=== PATIENT | female | born 1940 | race Caucasian/White ===

== ENCOUNTER 2016-05-04 10:42 | Emergency (ER) | payer OTHER ==
[2016-05-04 10:47] VITALS: BP 150/84; PULSE 100; TEMP 99.1; BMI 26.0
[2016-05-04] MEDS ORDERED: ACETAMINOPHEN 500 MG TABLET (FP) PO ONE (12:17)
--- NOTE | 2016-05-04 12:21 | PDOC ---
History of Present Illness - General Chief Complaint: Back Pain Stated Complaint: back pain Time Seen by Provider: 05/04/16 11:18 History Source: Patient, Parent(s) Exam Limitations: No Limitations Past History - Past Medical History Allergies/Adverse Reactions: Allergies Allergy/AdvReac Type Severity Reaction Status Date / Time No Known Drug Allergies Allergy Verified 05/04/16 10:46 Home Medications: Ambulatory Orders Lubiprostone [Amitiza] 8 mcg PO DAILY 05/09/12 Linagliptin/Metformin HCl [Jentadueto 2.5 mg-1000 mg Tab] 1 each PO DAILY Aspirin Coated [Ecotrin -] 81 mg PO DAILY #30 tablet.ec 01/28/14 Tamoxifen Citrate 20 mg PO DAILY #30 tablet 01/28/14 Atorvastatin Ca [Lipitor] 40 mg PO HS 12/17/14 Hydrochlorothiazide [Hctz -] 25 mg PO BID 12/17/14 Losartan/Hydrochlorothiazide [Losartan-Hctz 50-12.5 mg Tab] 1 each PO DAILY Metoprolol Succinate [Toprol XL -] 25 mg PO DAILY 12/17/14 Alprazolam [Xanax] 0.25 mg PO Q8H PRN #0 tablet 12/21/14 Cefuroxime Axetil [Ceftin -] 500 mg PO BID 5 Days 12/21/14 Tamoxifen Citrate 20 mg PO DAILY tablet 12/21/14 Levofloxacin [Levaquin -] 500 mg PO DAILY #10 tablet 05/04/16 Anemia: No Asthma: No Cancer: Yes (RIGHT BREAST 02/08) Cardiac Disorders: No CVA: No COPD: No CHF: No Dementia: No Diabetes: Yes (2000) GI Disorders: No (CONSTIPATION) Disorders: No HTN: Yes Hypercholesterolemia: Yes Liver Disease: No Suicide Attempt (Hx): No Seizures: No Thyroid Disease: No - Surgical History Abdominal Surgery: No Appendectomy: No Cardiac Surgery: No Cholecystectomy: No Lung Surgery: No Neurologic Surgery: No Orthopedic Surgery: No - Immunization History Immunization Up to Date: No - Psycho/Social/Smoking Cessation Hx Anxiety: No Suicidal Ideation: No Smoking Status: No Smoking History: Never smoked Have you smoked in the past 12 months: No Number of Cigarettes Smoked Daily: 0 Information on smoking cessation initiated: No Hx Alcohol Use: No Drug/Substance Use Hx: No Substance Use Type: None Hx Substance Use Treatment: No *Physical Exam - Vital Signs Last Vital Signs Temp Pulse Resp BP Pulse Ox 99.1 F 100 H 18 150/84 99 05/04/16 10:44 05/04/16 10:44 05/04/16 10:44 05/04/16 10:44 05/04/16 10:44 - Physical Exam General Appearance: Yes: Nourished, Appropriately Dressed, Apparent Distress, Mild Distress HEENT: positive: [place], Normal ENT Inspection, TMs Normal, Pharynx Normal Neck: positive: Tender, Supple. negative: Lymphadenopathy (R), Lymphadenopathy (L) Respiratory/Chest: positive: Lungs Clear, Normal Breath Sounds Cardiovascular: positive: Regular Rate Gastrointestinal/Abdominal: positive: Normal Bowel Sounds, Soft. negative: Tender Musculoskeletal: positive: Normal Inspection, Muscle Spasm (tight tense musculature primarily to the left paravertebral spinous muscles at lumbar spine) . 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, Fully Oriented, Alert, Normal Mood/ Affect, Normal Response, Motor Strength 5/5 *DC/Admit/Observation/Transfer Diagnosis at time of Disposition: Urinary tract infection Qualifiers: Urinary tract infection type: acute cystitis Hematuria presence: with hematuria Qualified Code(s): N30.01 - Acute cystitis with hematuria - Discharge Dispostion Disposition: HOME Condition at time of disposition: Stable Admit: No - Referrals Referrals: José Denis MD [Primary Care Provider] - - Patient Instructions Printed Discharge Instructions: Urinary Tract Infection Additional Instructions: Rest, drink lots of fluids: Teas, water, soups Avoid contact with others until fevers and symptoms resolved Lots of handwashing and good hygiene Continue [id number] medications for symptomatic relief Tylenol or Motrin for fever and pain Continue all of antibiotics until completed Followup with private physician in one week for repeat urinalysis/reevaluation Return to emergency department for worsened symptoms, fevers, dehydration
[2016-05-04] MEDS ORDERED: ACETAMINOPHEN 500 MG TABLET (FP) ONE (12:22)
[2016-05-04 12:33] LABS: URINE APPEARANCE CLOUDY; URINE BILIRUBIN NEGATIVE (NEGATIVE); URINE BLOOD NEGATIVE (NEGATIVE); URINE COLOR YELLOW; URINE GLUCOSE (UA) 3+ (NEGATIVE); URINE KETONE TRACE (NEGATIVE); URINE NITRITE NEGATIVE (NEGATIVE); URINE PROTEIN 1+ (NEGATIVE); URINE UROBILINOGEN NEGATIVE E.U./dl (0.2-1.0)
[2016-05-04 12:34] LABS: URINE LEUK ESTERASE 2+ (NEGATIVE)
[2016-05-04 12:38] LABS: GRANULAR CASTS 1 /lpf; URINE HYALINE CAST 3 /lpf; URINE MUCUS RARE; URINE RBC 8 /hpf (0-3); URINE WBC 77 /hpf (3-5)
[2016-05-04] MEDS ORDERED: LEVOFLOXACIN 500 MG TABLET (FP) PO ONE (12:44)
[2016-05-04] MEDS ORDERED: LEVOFLOXACIN 500 MG TABLET (FP) ONE (12:53)
== END 2016-05-04 13:16 | disposition home or self-care (01) ==
LOC: JERFT 10:42
DX: N30.01 Acute cystitis with hematuria (principal); E11.9 Type 2 diabetes mellitus without complications; Z79.84 Long term (current) use of oral hypoglycemic drugs; I10 Essential (primary) hypertension; E78.00 Pure hypercholesterolemia, unspecified; Z85.3 Personal history of malignant neoplasm of breast
CPT/HCPCS: 81003; 81015; 87086; 99281-25

== ENCOUNTER 2016-05-09 12:22 | Emergency (ER) | payer OTHER ==
[2016-05-09 12:36] VITALS: PULSE 95; BMI 25.7
[2016-05-09] MEDS ORDERED: SODIUM CHLORIDE 1,000 ML IV STA (13:39)
[2016-05-09] MEDS ORDERED: OXYCODONE/APAP 5/325MG COMBO TABLET PO ONE (13:40)
[2016-05-09] MEDS ORDERED: OXYCODONE/APAP 5/325MG COMBO TABLET ONE (13:53)
[2016-05-09 14:14] LABS: BASOPHIL 0.6 % (0-2.0); EOSINOPHIL 1.5 % (0-4.5); MEAN CELL VOLUME 91.1 fl (80-96); MEAN PLT VOLUME 9.4 fl (7.5-11.1); NEUTROPHILS 69.1 % (42.8-82.8); PLATELET COUNT 336 K/MM3 (134-434); RDW 12.6 % (11.6-15.6); WHITE BLOOD COUNT 10.9 K/mm3 (4.0-10.0)
[2016-05-09 14:31] LABS: URINE APPEARANCE CLEAR; URINE BILIRUBIN NEGATIVE (NEGATIVE); URINE BLOOD NEGATIVE (NEGATIVE); URINE COLOR LT. YELLOW; URINE GLUCOSE (UA) TRACE (NEGATIVE); URINE KETONE NEGATIVE (NEGATIVE); URINE NITRITE NEGATIVE (NEGATIVE); URINE PROTEIN NEGATIVE (NEGATIVE); URINE UROBILINOGEN 0.2 E.U/dl E.U./dl (0.2-1.0)
[2016-05-09 14:35] LABS: URINE LEUK ESTERASE TRACE (NEGATIVE)
[2016-05-09 14:44] LABS: ALBUMIN 3.9 g/dl (3.4-5.0); BILIRUBIN,TOTAL 0.5 mg/dL (0.2-1.0); CALCIUM 9.2 mg/dL (8.5-10.1); CREATININE 1.4 mg/dL (0.55-1.02); TOT PROT 7.7 g/dl (6.4-8.2)
[2016-05-09 15:01] LABS: URINE HYALINE CAST 9 /lpf; URINE MUCUS RARE; URINE RBC 2 /hpf (0-3); URINE WBC 21 /hpf (3-5)
--- NOTE | 2016-05-09 15:20 | PDOC ---
History of Present Illness - General Chief Complaint: Pain, Acute Stated Complaint: LT SIDE/BACK PAIN Time Seen by Provider: 05/09/16 12:56 History Source: Patient Exam Limitations: No Limitations - History of Present Illness Travel History: No Initial Comments: 05/09/16 15:08 75 y/o female presents to the ED with complaints of left hip pain rating down her left leg for the past week and half intermittently worsened with movement and ambulation. Patient states was seen here approximately 6 days ago was diagnosed with a urinary tract infection has been taking the antibiotics since but states the pain continues. Patient states has no urinary complaints no dysuria fever, diarrhea, abdominal pain, or nausea. Patient denies history of low back pain, arthritis, recent fall, or recent illness. Timing/Duration: reports: constant Quality: reports: moderate, aching Abdominal Pain Onset Location: reports: other Pain Radiation: reports: other (Leg) Activities at Onset: reports: none Aggravating Factors: improves with: Movement Alleviating Factors: improves with: Rest Past History - Past Medical History Allergies/Adverse Reactions: Allergies Allergy/AdvReac Type Severity Reaction Status Date / Time No Known Drug Allergies Allergy Verified 05/09/16 12:26 Home Medications: Ambulatory Orders Lubiprostone [Amitiza] 8 mcg PO DAILY 05/09/12 Linagliptin/Metformin HCl [Jentadueto 2.5 mg-1000 mg Tab] 1 each PO DAILY Aspirin Coated [Ecotrin -] 81 mg PO DAILY #30 tablet.ec 01/28/14 Tamoxifen Citrate 20 mg PO DAILY #30 tablet 01/28/14 Atorvastatin Ca [Lipitor] 40 mg PO HS 12/17/14 Hydrochlorothiazide [Hctz -] 25 mg PO BID 12/17/14 Losartan/Hydrochlorothiazide [Losartan-Hctz 50-12.5 mg Tab] 1 each PO DAILY Metoprolol Succinate [Toprol XL -] 25 mg PO DAILY 12/17/14 Alprazolam [Xanax] 0.25 mg PO Q8H PRN #0 tablet 12/21/14 Cefuroxime Axetil [Ceftin -] 500 mg PO BID 5 Days 12/21/14 Tamoxifen Citrate 20 mg PO DAILY tablet 12/21/14 Levofloxacin [Levaquin -] 500 mg PO DAILY #10 tablet 05/04/16 Anemia: No Asthma: No Cancer: Yes (RIGHT BREAST 02/08) Cardiac Disorders: No CVA: No COPD: No CHF: No Dementia: No Diabetes: Yes (1999) GI Disorders: No (CONSTIPATION) Disorders: No HTN: Yes Hypercholesterolemia: Yes Liver Disease: No Suicide Attempt (Hx): No Seizures: No Thyroid Disease: No - Surgical History Abdominal Surgery: No Appendectomy: No Cardiac Surgery: No Cholecystectomy: No Lung Surgery: No Neurologic Surgery: No Orthopedic Surgery: No - Immunization History Immunization Up to Date: No - Psycho/Social/Smoking Cessation Hx Anxiety: No Suicidal Ideation: No Smoking Status: No Smoking History: Never smoked Have you smoked in the past 12 months: No Number of Cigarettes Smoked Daily: 0 Information on smoking cessation initiated: No Hx Alcohol Use: No Drug/Substance Use Hx: No Substance Use Type: None Hx Substance Use Treatment: No Patient Lives Alone: No Review of Systems - Review of Systems Able to Perform ROS?: Yes Constitutional: No: Symptoms Reported HEENTM: No: Symptoms Reported Respiratory: No: Symptoms reported Cardiac (ROS): No: Symptoms Reported : No: Symptoms Reported Musculoskeletal: Yes: Back Pain, Joint Pain (left pelvis ), Muscle Pain (left buttock and left groin) Integumentary: No: Symptoms Reported Neurological: No: Symptoms reported Hematologic/Lymphatic: No: Symptoms Reported *Physical Exam - Vital Signs Last Vital Signs Temp Pulse Resp BP Pulse Ox 99.1 F 95 H 18 154/77 100 05/09/16 12:29 05/09/16 12:29 05/09/16 12:29 05/09/16 12:29 05/09/16 12:29 - Physical Exam General Appearance: Yes: Nourished, Appropriately Dressed. No: Apparent Distress Respiratory/Chest: positive: Lungs Clear, Normal Breath Sounds. negative: Respiratory Distress, Accessory Muscle Use Cardiovascular: positive: Regular Rhythm, Regular Rate. negative: Murmur Vascular Pulses: Dorsalis-Pedis (R): 2+, Doralis-Pedis (L): 2+ Gastrointestinal/Abdominal: positive: Normal Bowel Sounds, Soft. negative: Tenderness Musculoskeletal: negative: CVA Tenderness, Vertebral Tenderness Extremity: positive: Normal Capillary Refill, Normal Inspection, Normal Range of Motion, Tender (left inguinal fold. Left iliac crest). negative: Pedal Edema Integumentary: positive: Normal Color, Warm, Moist Neurologic: positive: Motor Strength 5/5 (ambulatory) ED Treatment Course - LABORATORY CBC & Chemistry Diagram: 05/09/16 13:50 05/09/16 13:50 - ADDITIONAL ORDERS Additional order review: Laboratory Results 05/09/16 05/09/16 13:50 13:17 Sodium 138 Potassium 4.8 Chloride 101 Carbon Dioxide 25 Anion Gap 12 BUN 18 D Creatinine 1.4 H D Creat Clearance w eGFR 36.56 Random Glucose 203 H D Calcium 9.2 Total Bilirubin 0.5 D AST 42 H D ALT 20 Alkaline Phosphatase 50 Total Protein 7.7 Albumin 3.9 Urine Color Lt. yellow Urine Appearance Clear Urine pH 6.0 Ur Specific [place] 1.020 Urine Protein Negative Urine Glucose (UA) Trace H D Urine Ketones Negative Urine Blood Negative Urine Nitrite Negative Urine Bilirubin Negative Urine Urobilinogen 0.2 e.u/dl Ur Leukocyte Esterase Trace H D Urine RBC 2 Urine WBC 21 Ur Epithelial Cells Moderate Hyaline Casts 9 Urine Mucus Rare 05/09/16 13:50 RBC 4.45 MCV 91.1 MCHC 34.0 RDW 12.6 MPV 9.4 Neutrophils % 69.1 Lymphocytes % 21.7 Monocytes % 7.1 Eosinophils % 1.5 Basophils % 0.6 - RADIOLOGY Radiology Studies Ordered: Category Date Time Status HIP & PELVIS-LEFT [RAD] Stat Radiology 05/09/16 13:39 Ordered - Medications Given in the ED: ED Medications Discontinued Medications Generic Name Dose Route Start Last Admin Trade Name Freq PRN Reason Stop Dose Admin Sodium Chloride 1,000 mls @ 1,000 mls/hr 05/09/16 13:39 05/09/16 14:08 Normal Saline - IV 05/09/16 14:38 1,000 mls/hr ASDIR STA Administration Oxycodone/Acetaminophen 1 combo 05/09/16 13:40 05/09/16 14:08 Percocet 5/325 - PO 05/09/16 13:41 1 combo ONCE ONE Administration Medical Decision Making - Medical Decision Making 05/09/16 15:03 Patient here with complaints of left hip left suprapubic left inguinal pain intermittently for the past week and a half. Patient currently on antibiotics for UTI. Patient states no previous injury to the affected area and denies arthritis . Patient with tenderness to the left inguinal fold left iliac crest, and left upper buttock. No deformity palpated with movement. Patient ordered for labs including urinalysis urine culture and hip pelvis x-ray previous urine culture contaminated. 05/09/16 15:25 Laboratory Tests 05/09/16 05/09/16 05/09/16 13:17 13:50 13:50 WBC 10.9 H Hgb 13.8 D Hct 40.5 Neutrophils % 69.1 Sodium 138 Potassium 4.8 Chloride 101 Carbon Dioxide 25 Anion Gap 12 BUN 18 D Creatinine 1.4 H D Creat Clearance w eGFR 36.56 Random Glucose 203 H D Calcium 9.2 AST 42 H D ALT 20 Urine Glucose (UA) Trace H D Ur Leukocyte Esterase Trace H D Urine WBC 21 05/09/16 16:38 Pelvis and hip x-ray shows no gross fracture dislocation bone destruction or periosteal elevation since previous x-ray seen in 2006. Soft tissues appear unremarkable. Patient states feeling better after receiving Percocet. Patient continues to have bacteria in her urine but has Levaquin which she did not complete as of yet since she started on the sixth. Patient will be discharged home with Percocet and told to follow up with her PCP this week. *DC/Admit/Observation/Transfer Diagnosis at time of Disposition: Pain in pelvis Urinary tract infection Qualifiers: Urinary tract infection type: acute cystitis Hematuria presence: without hematuria Qualified Code(s): N30.00 - Acute cystitis without hematuria - Discharge Dispostion Disposition: HOME Condition at time of disposition: Improved - Referrals Referrals: José Denis MD [Primary Care Provider] - - Patient Instructions Printed Discharge Instructions: DI for Urinary Tract Infection (UTI) Additional Instructions: Please take Percocet as needed for discomfort and follow-up with her PCP discuss today's visit. Continue antibiotics until completed. Return to ED if symptoms return or worsen
[2016-05-09 17:24] VITALS: BP 145/75; TEMP 98.9
== END 2016-05-09 16:50 | disposition home or self-care (01) ==
LOC: JER 12:22
PROC: 3E0337Z Introduction of Electrolytic and Water Balance Substance into Peripheral Vein, Percutaneous Approach (ICD-10-PCS; principal; 2016-05-09)
DX: N30.00 Acute cystitis without hematuria (principal); R10.2 Pelvic and perineal pain; I10 Essential (primary) hypertension; E11.9 Type 2 diabetes mellitus without complications; Z79.84 Long term (current) use of oral hypoglycemic drugs; E78.00 Pure hypercholesterolemia, unspecified; Z85.3 Personal history of malignant neoplasm of breast
CPT/HCPCS: 36415; 73523-TC; 80053; 81003; 81015; 85025; 87086; 96360; 99282-25

== ENCOUNTER 2016-05-10 16:35 | Emergency (ER) | payer OTHER ==
[2016-05-10 16:40] VITALS: TEMP 99.5; BMI 25.7
--- NOTE | 2016-05-10 17:28 | PDOC ---
[id number] No Limitations - History of Present Illness Initial Comments: 05/10/16 18:23 The patient is a 75 year old female with significant past medical history of hypertension, hyperlipidemia, diabetes, recent UTI who presents to the emergency department with left sided suprapubic and left hip pain for the last week. The patient was here >1 week ago and was diagnosed with a UTI. The patient was started on abx and is still taking these daily (10 day course of abx ). The patient was here yesterday for persistent left sided hip pain. She states that her pain is in her left buttocks and left groin area which radiates down the left leg. The patient states she was given percocet for her pain and this temporarily alleviated some of her discomfort but then the pain returned. The patient reports some associated nausea but denies any vomiting. The patient denies dysuria, hematuria, frequency. The patietn denies recent illness, fevers , or chills. She denies any history of low back pain or sciatica. <Neva Waters - Last Filed: 05/10/16 18:23> <Justine Mendez - Last Filed: 05/15/16 08:19> - General Chief Complaint: Pain Stated Complaint: PAIN Time Seen by Provider: 05/10/16 17:27 Past History <Neva Waters - Last Filed: 05/10/16 18:23> - Past Medical History Anemia: No Asthma: No Cancer: Yes (RIGHT BREAST 02/08) Cardiac Disorders: No CVA: No COPD: No CHF: No Dementia: No Diabetes: Yes (1999) GI Disorders: No (CONSTIPATION) Disorders: No HTN: Yes Hypercholesterolemia: Yes Liver Disease: No Suicide Attempt (Hx): No Seizures: No Thyroid Disease: No - Surgical History Abdominal Surgery: No Appendectomy: No Cardiac Surgery: No Cholecystectomy: No Lung Surgery: No Neurologic Surgery: No Orthopedic Surgery: No - Immunization History Immunization Up to Date: No - Psycho/Social/Smoking Cessation Hx Anxiety: No Suicidal Ideation: No Smoking Status: No Smoking History: Never smoked Have you smoked in the past 12 months: No Number of Cigarettes Smoked Daily: 0 Hx Alcohol Use: No Drug/Substance Use Hx: No Substance Use Type: None Hx Substance Use Treatment: No <Justine Mendez - Last Filed: 05/15/16 08:19> - Past Medical History Allergies/Adverse Reactions: Allergies Allergy/AdvReac Type Severity Reaction Status Date / Time No Known Drug Allergies Allergy Verified 05/10/16 16:40 Home Medications: Ambulatory Orders Lubiprostone [Amitiza] 8 mcg PO DAILY 05/09/12 Linagliptin/Metformin HCl [Jentadueto 2.5 mg-1000 mg Tab] 1 each PO DAILY Aspirin Coated [Ecotrin -] 81 mg PO DAILY #30 tablet.ec 01/28/14 Tamoxifen Citrate 20 mg PO DAILY #30 tablet 01/28/14 Atorvastatin Ca [Lipitor] 40 mg PO HS 12/17/14 Hydrochlorothiazide [Hctz -] 25 mg PO BID 12/17/14 Losartan/Hydrochlorothiazide [Losartan-Hctz 50-12.5 mg Tab] 1 each PO DAILY Metoprolol Succinate [Toprol XL -] 25 mg PO DAILY 12/17/14 Alprazolam [Xanax] 0.25 mg PO Q8H PRN #0 tablet 12/21/14 Cefuroxime Axetil [Ceftin -] 500 mg PO BID 5 Days 12/21/14 Tamoxifen Citrate 20 mg PO DAILY tablet 12/21/14 Levofloxacin [Levaquin -] 500 mg PO DAILY #10 tablet 05/04/16 Oxycodone HCl/Acetaminophen [Percocet 5-325 mg Tablet] 1 - 2 tab PO Q6H PRN #12 tab MDD 4 05/09/16 Ibuprofen 800 mg PO TID #30 tablet 05/10/16 Methocarbamol [Robaxin -] 500 mg PO TID #30 tablet 05/10/16 Review of Systems - Review of Systems Able to Perform ROS?: Yes Comments:: 05/10/16 18:23 GENERAL/CONSTITUTIONAL: No fever or chills. No weakness. HEAD, EYES, EARS, NOSE AND THROAT: No change in vision. No ear pain or discharge. No sore throat. CARDIOVASCULAR: No chest pain or shortness of breath. RESPIRATORY: No cough, wheezing, or hemoptysis. GASTROINTESTINAL: +Nausea. No vomiting, diarrhea or constipation. GENITOURINARY: No dysuria, frequency, or change in urination. MUSCULOSKELETAL: +Left hip pain. No muscle swelling or pain. No neck or back pain. SKIN: No rash NEUROLOGIC: No headache, vertigo, loss of consciousness, or change in strength/ sensation. ENDOCRINE: No increased thirst. No abnormal weight change. HEMATOLOGIC/LYMPHATIC: No anemia, easy bleeding, or history of blood clots. ALLERGIC/IMMUNOLOGIC: No hives or skin allergy. <Neva Waters - Last Filed: 05/10/16 18:23> *Physical Exam - Vital Signs Last Vital Signs Temp Pulse Resp BP Pulse Ox 99.5 F 95 H 20 156/76 99 05/10/16 16:37 05/10/16 16:37 05/10/16 16:37 05/10/16 16:37 05/10/16 16:37 - Physical Exam Comments: 05/10/16 18:23 GENERAL: Awake, alert, and fully oriented, in no acute distress HEAD: No signs of trauma EYES: PERRLA, EOMI, sclera anicteric, conjunctiva clear ENT: Auricles normal inspection, hearing grossly normal, nares patent, oropharynx clear without exudates. Moist mucosa NECK: Normal ROM, supple, no lymphadenopathy, JVD, or masses LUNGS: Breath sounds equal, clear to auscultation bilaterally. No wheezes, and no crackles HEART: Regular rate and rhythm, normal S1 and S2, no murmurs, rubs or gallops ABDOMEN: Soft, nontender, normoactive bowel sounds. No guarding, no rebound. No masses EXTREMITIES: +Tenderness to palpation in the mid left buttock. Normal range of motion, no edema. No clubbing or cyanosis. No cords, erythema, or tenderness NEUROLOGICAL: Cranial nerves II through XII grossly intact. Normal speech, normal gait SKIN: Warm, Dry, normal turgor, no rashes or lesions noted. <Neva Waters - Last Filed: 05/10/16 18:23> - Vital Signs Last Vital Signs Temp Pulse Resp BP Pulse Ox 99.5 F 95 H 20 156/76 99 05/10/16 16:37 05/10/16 16:37 05/10/16 16:37 05/10/16 16:37 05/10/16 16:37 <Justine Mendez - Last Filed: 05/15/16 08:19> Medical Decision Making - Medical Decision Making 05/10/16 18:[address] Sinisterra. Patient presents with L flank/low back/ buttock pain. Recent treatment for UTI, is not improving. DDx includes kidney stone vs sciatica. Awaiting CT lumbar spine, spiral. <Justine Mendez - Last Filed: 05/15/16 08:19> *DC/Admit/Observation/Transfer - Attestations Scribe Attestion: 05/10/16 17:36 Documentation prepared by Neva Waters, acting as medical office secretary for Justine Mendez MD. <Neva Waters - Last Filed: 05/10/16 18:23> <Justine Mendez - Last Filed: 05/15/16 08:19> Diagnosis at time of Disposition: Back pain - Discharge Dispostion Disposition: HOME - Prescriptions Prescriptions: Ibuprofen 800 mg PO TID #30 tablet Methocarbamol [Robaxin -] 500 mg PO TID #30 tablet - Referrals Referrals: José Denis MD [Primary Care Provider] - - Patient Instructions Printed Discharge Instructions: DI for Low Back Pain
[2016-05-10] MEDS ORDERED: ONDANSETRON *ODT* 4 MG TABLET SL ONE (17:49)
[2016-05-10] MEDS ORDERED: morphine CARPU-JECT 2 MG/1 ML DISP.SYRIN IM ONE (17:49)
[2016-05-10] MEDS ORDERED: morphine CARPU-JECT 2 MG/1 ML DISP.SYRIN ONE (17:56)
[2016-05-10] MEDS ORDERED: ONDANSETRON *ODT* 4 MG TABLET ONE (17:58)
[2016-05-10 18:13] VITALS: BP 142/70; PULSE 85
[2016-05-10] MEDS ORDERED: METHOCARBAMOL 500 MG TABLET PO ONE (21:18)
[2016-05-10] MEDS ORDERED: IBUPROFEN 600 MG TABLET (FP) PO STA (21:18)
--- NOTE | 2016-05-10 21:18 | PDOC ---
*Physical Exam - Vital Signs Last Vital Signs Temp Pulse Resp BP Pulse Ox 99.5 F 85 18 142/70 96 05/10/16 16:37 05/10/16 18:10 05/10/16 18:10 05/10/16 18:10 05/10/16 18:10 ED Treatment Course - Medications Given in the ED: ED Medications Discontinued Medications Generic Name Dose Route Start Last Admin Trade Name Adriano PRN Reason Stop Dose Admin Morphine Sulfate 2 mg 05/10/16 17:49 05/10/16 18:05 Morphine Injection - IM 05/10/16 17:50 2 mg ONCE ONE Administration Ondansetron HCl 4 mg 05/10/16 17:49 05/10/16 18:05 Zofran Odt - SL 05/10/16 17:50 4 mg ONCE ONE Administration *DC/Admit/Observation/Transfer Diagnosis at time of Disposition: Back pain Qualifiers: Back pain location: low back pain Back pain laterality: unspecified Sciatica presence: without sciatica - Discharge Dispostion Disposition: HOME Condition at time of disposition: Stable Admit: No - Referrals Referrals: José Denis MD [Primary Care Provider] - - Patient Instructions Printed Discharge Instructions: DI for Low Back Pain - Post Discharge Activity
[2016-05-10] MEDS ORDERED: IBUPROFEN 400 MG TABLET (FP) PO ONE (21:25)
[2016-05-10] MEDS ORDERED: METHOCARBAMOL 500 MG TABLET ONE (21:25)
== END 2016-05-10 21:32 | disposition home or self-care (01) ==
LOC: JER 16:35
PROC: 3E023NZ Introduction of Analgesics, Hypnotics, Sedatives into Muscle, Percutaneous Approach (ICD-10-PCS; principal; 2016-05-10)
DX: M54.5 Low back pain (principal); I10 Essential (primary) hypertension; E78.5 Hyperlipidemia, unspecified; E11.9 Type 2 diabetes mellitus without complications; Z87.440 Personal history of urinary (tract) infections; Z85.3 Personal history of malignant neoplasm of breast; K59.00 Constipation, unspecified
CPT/HCPCS: 72131-TC; 74176; 96372; 99282-25

== ENCOUNTER 2016-07-12 00:54 | Emergency (ER) | payer OTHER ==
[2016-07-12 01:16] VITALS: TEMP 98.9; BMI 26.5
--- NOTE | 2016-07-12 01:22 | PDOC ---
History of Present Illness - General History Source: Patient Exam Limitations: No Limitations - History of Present Illness Initial Comments: 07/12/16 01:31 The patient is a 76 year old female with significant past medical history of breast CA s/p mastectomy, hypertension, hyperlipidemia, diabetes type II, dyslipidemia, and UTI who presents to the ED BIBA from home with midsternal chest pain that began few hours prior to arrival. Patient reports she was in her usual state of health when she suddenly developed a nonradiating midsternal chest pain around 10pm. She describes her pain as a pressure-like sensation and 6/10 with nausea and vomiting. She denies diaphoresis, lightheadedness, SOB, palpitations, jaw pain, shoulder pain, arm pain, or leg swelling. Family gave her aspirin just prior to arrival. The patient denies fever, chills, cough, abdominal pain, and diarrhea. Allergies: NKDA Social History: No alcohol, tobacco, or drug use reported. Past Surgical History: mastectomy PCP: Dr. José Denis Cardio: Dr. Jj Gottlieb <Clarita Boudreaux - Last Filed: 07/12/16 01:31> - General History Source: Patient <Efraín Lopez - Last Filed: 07/12/16 02:58> - General Chief Complaint: Pain Stated Complaint: CHEST PAIN, DRY MOUTH Time Seen by Provider: 07/12/16 01:21 Past History <Clarita Boudreaux - Last Filed: 07/12/16 01:31> - Past Medical History Anemia: No Asthma: No Cancer: Yes (Rt breast 02/08) Cardiac Disorders: No CVA: No COPD: No CHF: No Dementia: No Diabetes: Yes (1999) GI Disorders: Yes (Constipation) Disorders: No HTN: Yes Hypercholesterolemia: Yes Liver Disease: No Suicide Attempt (Hx): No Seizures: No Thyroid Disease: No - Surgical History Abdominal Surgery: No Appendectomy: No Cardiac Surgery: No Cholecystectomy: No Lung Surgery: No Neurologic Surgery: No Orthopedic Surgery: No - Immunization History Immunization Up to Date: No - Psycho/Social/Smoking Cessation Hx Anxiety: No Suicidal Ideation: No Smoking Status: No Smoking History: Never smoked Have you smoked in the past 12 months: No Number of Cigarettes Smoked Daily: 0 Hx Alcohol Use: No Drug/Substance Use Hx: No Substance Use Type: None Hx Substance Use Treatment: No <Efraín Lopez - Last Filed: 07/12/16 02:58> - Past Medical History Allergies/Adverse Reactions: Allergies Allergy/AdvReac Type Severity Reaction Status Date / Time No Known Drug Allergies Allergy Verified 07/12/16 01:16 Home Medications: Ambulatory Orders Lubiprostone [Amitiza] 8 mcg PO BID 05/09/12 Linagliptin/Metformin HCl [Jentadueto 2.5 mg-1000 mg Tab] 1 each PO DAILY Aspirin Coated [Ecotrin -] 81 mg PO DAILY #30 tablet.ec 01/28/14 Tamoxifen Citrate 20 mg PO DAILY #30 tablet 01/28/14 Atorvastatin Ca [Lipitor] 40 mg PO DAILY 12/17/14 Hydrochlorothiazide [Hctz -] 25 mg PO DAILY 12/17/14 Losartan/Hydrochlorothiazide [Losartan-Hctz 50-12.5 mg Tab] 1 each PO DAILY Metoprolol Succinate [Toprol XL -] 50 mg PO DAILY 12/17/14 Glipizide [Glipizide ER] 5 mg PO DAILY 07/12/16 Linaclotide [Linzess] 145 mcg PO DAILY 07/12/16 Linagliptin/Metformin HCl [Jentadueto 2.5 mg-500 mg Tab] 1 each PO BID 07/12/16 Mirtazapine [Remeron -] 15 mg PO DAILY 07/12/16 Review of Systems - Review of Systems Able to Perform ROS?: Yes Comments:: 07/12/16 01:31 CONSTITUTIONAL: Absent: fever, chills, diaphoresis, generalized weakness, malaise, loss of appetite HEENT: Absent: rhinorrhea, nasal congestion, throat pain, throat swelling, difficulty swallowing, mouth swelling, ear pain, eye pain, visual Changes CARDIOVASCULAR: +midsternal chest pain Absent: syncope, palpitations, irregular heart rate, lightheadedness, peripheral edema RESPIRATORY: Absent: cough, shortness of breath, dyspnea with exertion, orthopnea, wheezing, stridor, hemoptysis GASTROINTESTINAL: +nausea, vomiting Absent: abdominal pain, abdominal distension, diarrhea, constipation, melena, hematochezia GENITOURINARY: Absent: dysuria, frequency, urgency, hesitancy, hematuria, flank pain, genital pain MUSCULOSKELETAL: Absent: myalgia, arthralgia, joint swelling SKIN: Absent: rash, itching, pallor NEUROLOGIC: Absent: headache, focal weakness or paresthesias, dizziness, unsteady gait, seizure, mental status changes, bladder or bowel incontinence PSYCHIATRIC: Absent: anxiety, depression, suicidal or homicidal ideation, hallucinations. <Clarita Boudreaux - Last Filed: 07/12/16 01:31> *Physical Exam - Vital Signs Last Vital Signs Temp Pulse Resp BP Pulse Ox 98.9 F 97 H 19 182/85 98 07/12/16 01:11 07/12/16 01:11 07/12/16 01:11 07/12/16 01:11 07/12/16 01:11 - Physical Exam Comments: 07/12/16 01:31 GENERAL: Well developed, well nourished. Awake and alert. No acute distress. HEENT: Normocephalic, atraumatic. PERRLA, EOMI. No conjunctival pallor. Sclera are non- icteric. Moist mucous membranes. Oropharynx is clear. NECK: Supple. Full ROM. No JVD. Carotid pulses 2+ and symmetric, without bruits. No thyromegaly. No lymphadenopathy. CARDIOVASCULAR: Regular rate and rhythm. No murmurs, rubs, or gallops. Distal pulses are 2+ and symmetric. PULMONARY: No evidence of respiratory distress. Lungs clear to auscultation bilaterally. No wheezing, rales or rhonchi. ABDOMINAL: Soft. Non-tender. Non-distended. No rebound or guarding. No organomegaly. Normoactive bowel sounds. MUSCULOSKELETAL Normal range of motion at all joints. No bony deformities or tenderness. No CVA tenderness. EXTREMITIES: No cyanosis. No clubbing. No edema. No calf tenderness. SKIN: Warm and dry. Normal capillary refill. No rashes. No jaundice. NEUROLOGICAL: Alert, awake, appropriate. Cranial nerves 2-12 intact. Moving all extremities. No gross focal neurological deficits. PSYCHIATRIC: Cooperative. Good eye contact. Appropriate mood and affect. <Clarita Boudreaux - Last Filed: 07/12/16 01:31> - Vital Signs Last Vital Signs Temp Pulse Resp BP Pulse Ox 98.9 F 97 H 19 182/85 98 07/12/16 01:11 07/12/16 01:11 07/12/16 01:11 07/12/16 01:11 07/12/16 01:11 <Efraín Lopez - Last Filed: 07/12/16 02:58> Heart Score/ECG Review - ECG Impressions Comment:: 07/12/16 01:31 NSR @97bpm Left axis deviation Moderate voltage criteria for LVH, may be normal variant Nonspecific ST abnormality Abnormal ECG <Clarita Boudreaux - Last Filed: 07/12/16 01:31> ED Treatment Course - LABORATORY CBC & Chemistry Diagram: 07/12/16 01:35 07/12/16 01:35 <Efraín Lopez - Last Filed: 07/12/16 02:58> Medical Decision Making - Medical Decision Making 07/12/16 02:57 Dr. Lopez: The scribe's documentation has been prepared under my direction and personally reviewed by me in its entirery. I confirm that the note above accurately reflects all work, treatment, procedures, and medical decision making performed by me. Pt feels better. CE is negative. Pt advised to take her medication for DM. Advised to follow up with here pcp and cardiology <Efraín Lopez - Last Filed: 07/12/16 02:58> *DC/Admit/Observation/Transfer - Attestations Scribe Attestion: 07/12/16 01:32 Documentation prepared by Clarita Boudreaux, acting as medical management specialist for Efraín Lopez MD <Clarita Boudreaux - Last Filed: 07/12/16 01:31> - Discharge Dispostion Admit: No <Efraín Lopez - Last Filed: 07/12/16 02:58> Diagnosis at time of Disposition: Chest pain Qualifiers: Chest pain type: unspecified Qualified Code(s): R07.9 - Chest pain, unspecified - Discharge Dispostion Disposition: HOME Condition at time of disposition: Stable - Referrals Referrals: José Denis MD [Primary Care Provider] - - Patient Instructions Printed Discharge Instructions: DI for Chest Pain
[2016-07-12 01:55] LABS: BASOPHIL 0.5 % (0-2.0); EOSINOPHIL 1.7 % (0-4.5); MCH 30.5 pg (25.7-33.7); MCHC 33.5 g/dl (32.0-36.0); MEAN CELL VOLUME 91.1 fl (80-96); MEAN PLT VOLUME 8.6 fl (7.5-11.1); NEUTROPHILS 69.3 % (42.8-82.8); PLATELET COUNT 217 K/MM3 (134-434); RDW 13.7 % (11.6-15.6); WHITE BLOOD COUNT 10.7 K/mm3 (4.0-10.0)
[2016-07-12 02:37] LABS: URINE APPEARANCE CLEAR; URINE BILIRUBIN NEGATIVE (NEGATIVE); URINE COLOR STRAW; URINE GLUCOSE (UA) 3+ (NEGATIVE); URINE KETONE TRACE (NEGATIVE); URINE NITRITE NEGATIVE (NEGATIVE); URINE PROTEIN NEGATIVE (NEGATIVE); URINE UROBILINOGEN NEGATIVE E.U./dl (0.2-1.0)
[2016-07-12 02:38] LABS: URINE BLOOD 1+ (NEGATIVE); URINE LEUK ESTERASE TRACE (NEGATIVE)
[2016-07-12 02:39] LABS: ALBUMIN 3.6 g/dl (3.4-5.0); ANION GAP 11 (8-16); BILIRUBIN,TOTAL 0.2 mg/dL (0.2-1.0); CALCIUM 8.8 mg/dL (8.5-10.1); CO2 27 mmol/L (21-32); CREATININE 1.1 mg/dL (0.55-1.02); SGOT/AST 14 U/L (15-37); SGPT/ALT 17 U/L (12-78)
[2016-07-12 02:40] LABS: URINE BACTERIA RARE /hpf (NONE SEEN); URINE RBC 4 /hpf (0-3); URINE WBC 8 /hpf (3-5)
[2016-07-12 02:42] LABS: ALK PHOS 65 U/L (45-117); TROPONIN I < 0.02 ng/ml (0.00-0.05)
[2016-07-12 02:46] LABS: GLUCOSE,RANDOM 315 mg/dL (74-106)
[2016-07-12] MEDS ORDERED: LACTULOSE 20 GM/30 ML UDC (FOR ORAL USE ONLY) PO ONE (02:56)
[2016-07-12] MEDS ORDERED: LACTULOSE 20 GM/30 ML UDC (FOR ORAL USE ONLY) ONE (03:15)
[2016-07-12 03:32] VITALS: BP 151/73; PULSE 92
--- NOTE | 2016-07-12 13:24 | EKG ---
Test Reason : Blood Pressure : / mmHG Vent. Rate : 097 BPM Atrial Rate : 097 BPM P-R Int : 154 ms QRS Dur : 084 ms QT Int : 358 ms P-R-T Axes : 034 -33 045 degrees QTc Int : 454 ms NORMAL SINUS RHYTHM LEFT AXIS DEVIATION MODERATE VOLTAGE CRITERIA FOR LVH, MAY BE NORMAL VARIANT NONSPECIFIC ST ABNORMALITY ABNORMAL ECG WHEN COMPARED WITH ECG OF 17-DEC-2014 21:48, LEFT BUNDLE BRANCH BLOCK IS NO LONGER PRESENT Confirmed by ZAFAR MOREIRA MD ([id number]) on 07/12/2016 1:24:24 PM Referred By: Confirmed By:ZAFAR MOREIRA MD
== END 2016-07-12 03:33 | disposition home or self-care (01) ==
LOC: JER 00:54
DX: R07.9 Chest pain, unspecified (principal); Z85.3 Personal history of malignant neoplasm of breast; I10 Essential (primary) hypertension; E78.00 Pure hypercholesterolemia, unspecified; E11.9 Type 2 diabetes mellitus without complications
CPT/HCPCS: 36415; 71010-TC; 80053; 81003; 81015; 82550; 83880; 84484; 85025; 85610; 93005; 93010; 99281-25; 99284-25

== ENCOUNTER 2016-08-03 20:44 | Emergency (ER) | payer OTHER ==
[2016-08-03 21:19] VITALS: BP 150/72; PULSE 101; TEMP 99.5; BMI 26.4
[2016-08-03 21:31] LABS: URINE APPEARANCE CLEAR; URINE BILIRUBIN NEGATIVE (NEGATIVE); URINE BLOOD NEGATIVE (NEGATIVE); URINE COLOR YELLOW; URINE GLUCOSE (UA) 2+ (NEGATIVE); URINE KETONE TRACE (NEGATIVE); URINE NITRITE NEGATIVE (NEGATIVE); URINE PROTEIN NEGATIVE (NEGATIVE); URINE UROBILINOGEN NEGATIVE E.U./dl (0.2-1.0)
[2016-08-03 21:37] LABS: URINE LEUK ESTERASE 1+ (NEGATIVE)
[2016-08-03 21:40] LABS: URINE BACTERIA RARE /hpf (NONE SEEN); URINE MUCUS RARE; URINE RBC 4 /hpf (0-3); URINE WBC 13 /hpf (3-5)
--- NOTE | 2016-08-03 22:04 | PDOC ---
History of Present Illness - General History Source: Patient Exam Limitations: No Limitations - History of Present Illness Initial Comments: 08/03/16 22:24 The patient is a 76 year old female with significant past medical history of breast CA s/p mastectomy, hypertension, hyperlipidemia, diabetes type II, dyslipidemia, and UTIs who presents to the ED from home with 1 day of low back pain. Patient reports she developed a sudden onset of diffuse low back pain that she describes as sometimes stiffness or sharp shooting pain that does not radiate down the legs. No numbness/tingling. No trauma to the area or recent fall. Took advil 2 tablets every 4-6 hours with minimal relief. States she had a episode of diarrhea today that was noted to be watery and nonbloody. Reports associated decreased appetite and she able to tolerate fluids. No abdominal pain , nausea, or vomiting. Patient also has complaints of frequency, but no dysuria or hematuria. States her symptoms are consistent with her previous UTIs. The patient denies fever, chills, cough, SOB, chest pain, and palpitations. Allergies: NKDA Social History: No alcohol, tobacco, or drug use reported. Past Surgical History: mastectomy PCP: Dr. José Denis Cardio: Dr. Jj Gottlieb <Clarita Boudreaux - Last Filed: 08/03/16 22:24> - General History Source: Patient <Efraín Lopez - Last Filed: 08/03/16 23:47> - General Chief Complaint: Pain, Acute Stated Complaint: PAIN Time Seen by Provider: 08/03/16 21:46 Past History <Clarita Boudreaux - Last Filed: 08/03/16 22:24> - Past Medical History Anemia: No Asthma: No Cancer: Yes (Rt breast 02/08) Cardiac Disorders: No CVA: No COPD: No CHF: No Dementia: No Diabetes: Yes (1999) GI Disorders: Yes (Constipation) Disorders: No HTN: Yes Hypercholesterolemia: Yes Liver Disease: No Suicide Attempt (Hx): No Seizures: No Thyroid Disease: No - Surgical History Abdominal Surgery: No Appendectomy: No Cardiac Surgery: No Cholecystectomy: No Lung Surgery: No Neurologic Surgery: No Orthopedic Surgery: No - Immunization History Immunization Up to Date: No - Psycho/Social/Smoking Cessation Hx Anxiety: No Suicidal Ideation: No Smoking Status: No Smoking History: Never smoked Have you smoked in the past 12 months: No Number of Cigarettes Smoked Daily: 0 Hx Alcohol Use: No Drug/Substance Use Hx: No Substance Use Type: None Hx Substance Use Treatment: No <Efraín Lopez - Last Filed: 08/03/16 23:47> - Past Medical History Allergies/Adverse Reactions: Allergies Allergy/AdvReac Type Severity Reaction Status Date / Time No Known Drug Allergies Allergy Verified 08/03/16 21:03 Home Medications: Ambulatory Orders Lubiprostone [Amitiza] 8 mcg PO BID 05/09/12 Aspirin Coated [Ecotrin -] 81 mg PO DAILY #30 tablet.ec 01/28/14 Tamoxifen Citrate 20 mg PO DAILY #30 tablet 01/28/14 Atorvastatin Ca [Lipitor] 40 mg PO DAILY 12/17/14 Hydrochlorothiazide [Hctz -] 25 mg PO DAILY 12/17/14 Losartan/Hydrochlorothiazide [Losartan-Hctz 50-12.5 mg Tab] 1 each PO DAILY Metoprolol Succinate [Toprol XL -] 50 mg PO DAILY 12/17/14 Glipizide [Glipizide ER] 5 mg PO DAILY 07/12/16 Linaclotide [Linzess] 145 mcg PO DAILY 07/12/16 Linagliptin/Metformin HCl [Jentadueto 2.5 mg-500 mg Tab] 1 each PO BID 07/12/16 Mirtazapine [Remeron -] 15 mg PO DAILY 07/12/16 Levofloxacin [Levaquin] 500 mg PO DAILY #7 tablet 08/03/16 Naproxen Sodium [Aleve] 220 mg PO BID 08/03/16 Review of Systems - Review of Systems Able to Perform ROS?: Yes Comments:: 08/03/16 22:24 CONSTITUTIONAL: Absent: fever, no chills, no fatigue EYES: Absent: visual changes ENT: Absent: ear pain, no sore throat CARDIOVASCULAR: Absent: chest pain, no palpitations RESPIRATORY: Absent: cough, no SOB GI: +diarrhea Absent: abdominal pain, no nausea, no vomiting, no constipation GENITOURINARY: +frequency Absent: dysuria, no hematuria MUSCULOSKELETAL: +low back pain Absent: no arthralgia, no myalgia SKIN: Absent: rash NEURO: Absent: headache <Clarita Boudreaux - Last Filed: 08/03/16 22:24> *Physical Exam - Vital Signs Last Vital Signs Temp Pulse Resp BP Pulse Ox 99.5 F 101 H 20 150/72 98 08/03/16 21:12 08/03/16 21:12 08/03/16 21:12 08/03/16 21:12 08/03/16 21:12 - Physical Exam Comments: 08/03/16 22:24 GENERAL: Well-appearing, well-nourished. No apparent distress. HEENT: Normocephalic, atraumatic. PERRL, EOM intact. Moist mucosa. CARDIOVASCULAR: Normal S1, S2. Regular rate and rhythm. PULMONARY: Clear to auscultation bilaterally. ABDOMEN: Soft, non-distended, non-tender. EXTREMITIES: Normal ROM in all four extremities. No gross deformities. SKIN: Warm, dry. No rash NEUROLOGICAL: No focal neurological deficits. <KanikaClarita - Last Filed: 08/03/16 22:24> - Vital Signs Last Vital Signs Temp Pulse Resp BP Pulse Ox 99.5 F 101 H 20 150/72 98 08/03/16 21:12 08/03/16 21:12 08/03/16 21:12 08/03/16 21:12 08/03/16 21:12 <Efraín Lopez - Last Filed: 08/03/16 23:47> ED Treatment Course - ADDITIONAL ORDERS Additional order review: Laboratory Results 08/03/16 21:00 Urine Color Yellow Urine Appearance Clear Urine pH 5.0 Ur Specific [place] 1.019 Urine Protein Negative Urine Glucose (UA) 2+ H Urine Ketones Trace H Urine Blood Negative Urine Nitrite Negative Urine Bilirubin Negative Urine Urobilinogen Negative Ur Leukocyte Esterase 1+ H Urine RBC 4 Urine WBC 13 Ur Epithelial Cells Few Urine Bacteria Rare Urine Mucus Rare <KanikaClarita - Last Filed: 08/03/16 22:24> - LABORATORY CBC & Chemistry Diagram: 08/03/16 22:29 08/03/16 22:29 - ADDITIONAL ORDERS Additional order review: Laboratory Results 08/03/16 21:00 Urine Color Yellow Urine Appearance Clear Urine pH 5.0 Ur Specific [place] 1.019 Urine Protein Negative Urine Glucose (UA) 2+ H Urine Ketones Trace H Urine Blood Negative Urine Nitrite Negative Urine Bilirubin Negative Urine Urobilinogen Negative Ur Leukocyte Esterase 1+ H Urine RBC 4 Urine WBC 13 Ur Epithelial Cells Few Urine Bacteria Rare Urine Mucus Rare <Efraín Lopez - Last Filed: 08/03/16 23:47> Medical Decision Making - Medical Decision Making 08/03/16 23:46 Dr. Lopez: The scribe's documentation has been prepared under my direction and personally reviewed by me in its entirery. I confirm that the note above accurately reflects all work, treatment, procedures, and medical decision making performed by me. Pt found to have a UTI. It has been recurrent. Pt afebrile. Pt to be discharged. <Efraín Lopez - Last Filed: 08/03/16 23:47> *DC/Admit/Observation/Transfer - Attestations Scribe Attestion: 08/03/16 22:25 Documentation prepared by Clarita Boudreaux, acting as medical instructor for Efraín Lopez MD <Clarita Boudreaux - Last Filed: 08/03/16 22:24> - Discharge Dispostion Admit: No <Efraín Lopez - Last Filed: 08/03/16 23:47> Diagnosis at time of Disposition: Urinary tract infection Qualifiers: Urinary tract infection type: site unspecified Hematuria presence: without hematuria Qualified Code(s): N39.0 - Urinary tract infection, site not specified - Discharge Dispostion Disposition: HOME Condition at time of disposition: Stable - Referrals Referrals: José Denis MD [Primary Care Provider] - - Patient Instructions Printed Discharge Instructions: DI for Urinary Tract Infection (UTI)
[2016-08-03] MEDS ORDERED: SODIUM CHLORIDE 1,000 ML IV STA (22:10)
[2016-08-03] MEDS ORDERED: CEFTRIAXONE 50 ML ONE (22:49)
[2016-08-03 23:01] LABS: BASOPHIL 0.7 % (0-2.0); EOSINOPHIL 1.6 % (0-4.5); MCH 30.9 pg (25.7-33.7); MCHC 33.5 g/dl (32.0-36.0); MEAN CELL VOLUME 92.1 fl (80-96); MEAN PLT VOLUME 9.6 fl (7.5-11.1); NEUTROPHILS 70.8 % (42.8-82.8); PLATELET COUNT 285 K/MM3 (134-434); RDW 13.6 % (11.6-15.6)
[2016-08-03 23:28] LABS: ALBUMIN 3.9 g/dl (3.4-5.0); CALCIUM 9.2 mg/dL (8.5-10.1); COCKROFT - GAULT 50.2605
[2016-08-03 23:29] LABS: BILIRUBIN,TOTAL 0.6 mg/dL (0.2-1.0); TOT PROT 7.4 g/dl (6.4-8.2)
== END 2016-08-04 00:27 | disposition home or self-care (01) ==
LOC: JER 20:44
PROC: 3E03329 Introduction of Other Anti-infective into Peripheral Vein, Percutaneous Approach (ICD-10-PCS; principal; 2016-08-03)
PROC: 3E0337Z Introduction of Electrolytic and Water Balance Substance into Peripheral Vein, Percutaneous Approach (ICD-10-PCS; 2016-08-03)
DX: N39.0 Urinary tract infection, site not specified (principal); Z85.3 Personal history of malignant neoplasm of breast; I10 Essential (primary) hypertension; E78.5 Hyperlipidemia, unspecified; Z87.440 Personal history of urinary (tract) infections
CPT/HCPCS: 36415; 80053; 81003; 81015; 85025; 87086; 99282-25

== ENCOUNTER 2016-11-07 20:19 | Emergency (ER) | payer OTHER ==
[2016-11-07 20:36] VITALS: BP 117/70; PULSE 108; TEMP 99.4; BMI 27.4
--- NOTE | 2016-11-07 20:56 | PDOC ---
History of Present Illness - General Chief Complaint: Weakness Stated Complaint: WEAKNESS Time Seen by Provider: 11/07/16 20:50 - History of Present Illness Initial Comments: 11/07/16 21:17 Ms. Renteria is a 76 year old female with a significant past medical history of frequent UTI and DM who presents to the emergency department with a one day history of weakness as well as a few episodes of dizziness over the past week. Patient came in after family encouraged her to do so. They report that she is not like her normal self in energy. The patient denies chest pain, shortness of breath, headache and dizziness. Denies fever, chills, nausea, vomit, diarrhea and constipation. Denies dysuria, frequency, urgency and hematuria. Allergies: NKDA Past surgical history: Prior corneal transplant, lumpectomy, and tubal ligation Social history: Denies smoking or drinking PMD - José Denis 11/07/16 21:19 11/07/16 21:21 11/07/16 22:04 Past History - Past Medical History Allergies/Adverse Reactions: Allergies Allergy/AdvReac Type Severity Reaction Status Date / Time No Known Drug Allergies Allergy Verified 11/07/16 20:36 Home Medications: Ambulatory Orders Aspirin Coated [Ecotrin -] 81 mg PO DAILY #30 tablet.ec 01/28/14 Tamoxifen Citrate 20 mg PO DAILY #30 tablet 01/28/14 Atorvastatin Ca [Lipitor] 40 mg PO DAILY 12/17/14 Losartan/Hydrochlorothiazide [Losartan-Hctz 50-12.5 mg Tab] 1 each PO DAILY Metoprolol Succinate [Toprol XL -] 50 mg PO DAILY 12/17/14 Glipizide [Glipizide ER] 5 mg PO DAILY 07/12/16 Linaclotide [Linzess] 145 mcg PO DAILY 07/12/16 Mirtazapine [Remeron -] 15 mg PO DAILY 07/12/16 Amlodipine Besylate 5 mg PO DAILY 11/07/16 Linagliptin/Metformin HCl [Jentadueto 2.5 mg-500 mg Tab] 1 each PO DAILY Lubiprostone [Amitiza] 8 mcg PO DAILY 11/07/16 Anemia: No Asthma: No Cancer: Yes (Rt breast 02/08) Cardiac Disorders: No CVA: No COPD: No CHF: No Dementia: No Diabetes: Yes (1999) GI Disorders: Yes (Constipation) Disorders: No HTN: Yes Hypercholesterolemia: Yes Liver Disease: No Suicide Attempt (Hx): No Seizures: No Thyroid Disease: No - Surgical History Abdominal Surgery: No Appendectomy: No Cardiac Surgery: No Cholecystectomy: No Lung Surgery: No Neurologic Surgery: No Orthopedic Surgery: No - Immunization History Immunization Up to Date: No - Psycho/Social/Smoking Cessation Hx Anxiety: No Suicidal Ideation: No Smoking Status: No Smoking History: Never smoked Have you smoked in the past 12 months: No Number of Cigarettes Smoked Daily: 0 Information on smoking cessation initiated: No Hx Alcohol Use: No Drug/Substance Use Hx: No Substance Use Type: None Hx Substance Use Treatment: No Review of Systems - Review of Systems Comments:: 11/07/16 21:18 GENERAL/CONSTITUTIONAL: +Generalized weakness endorsed. No fever or chills. HEAD, EYES, EARS, NOSE AND THROAT: No change in vision. No ear pain or discharge. No sore throat. CARDIOVASCULAR: No chest pain or shortness of breath RESPIRATORY: No cough, wheezing, or hemoptysis. GASTROINTESTINAL: No nausea, vomiting, diarrhea or constipation. GENITOURINARY: No dysuria, frequency, or change in urination. MUSCULOSKELETAL: No joint or muscle swelling or pain. No neck or back pain. SKIN: No rash NEUROLOGIC: No headache, vertigo, loss of consciousness, or change in strength/ sensation. ENDOCRINE: No increased thirst. No abnormal weight change HEMATOLOGIC/LYMPHATIC: No anemia, easy bleeding, or history of blood clots. ALLERGIC/IMMUNOLOGIC: No hives or skin allergy. 11/07/16 21:28 *Physical Exam - Vital Signs Last Vital Signs Temp Pulse Resp BP Pulse Ox 99.4 F 108 H 18 117/70 98 11/07/16 20:33 11/07/16 20:33 11/07/16 20:33 11/07/16 20:33 11/07/16 20:33 - Physical Exam Comments: 11/07/16 21:19 GENERAL: Awake, alert, and fully oriented, in no acute distress HEAD: No signs of trauma, normocephalic, atraumatic EYES: PERRLA, EOMI, sclera anicteric, conjunctiva clear ENT: Auricles normal inspection, hearing grossly normal, nares patent, oropharynx clear without exudates. Moist mucosa NECK: Normal ROM, supple, no lymphadenopathy, JVD, or masses LUNGS: No distress, speaks full sentences, clear to auscultation bilaterally HEART: Regular rate and rhythm, normal S1 and S2, no murmurs, rubs or gallops, peripheral pulses normal and equal bilaterally. ABDOMEN: Soft, nontender, normoactive bowel sounds. No guarding, no rebound. No masses EXTREMITIES: Normal inspection, Normal range of motion, no edema. No clubbing or cyanosis. NEUROLOGICAL: Cranial nerves II through XII grossly intact. Normal speech, normal gait, no focal sensorimotor deficits SKIN: Warm, Dry, normal turgor, no rashes or lesions noted. 11/07/16 21:28 ED Treatment Course - LABORATORY CBC & Chemistry Diagram: 11/07/16 21:30 11/07/16 21:30 Medical Decision Making - Medical Decision Making 11/07/16 21:29 Ms. Renteria came in on the urging of her family after they noted she was not her normal self. No acute distress or deficits noted but per family she is not her normal self and feels weak. She has a history of DM, HTN, and frequent UTI' s. Suspect one of these is the cause of her weakness. Will check BMP, CBC, UA + culture, as well as hang 1L fluids. *DC/Admit/Observation/Transfer Diagnosis at time of Disposition: Generalized muscle weakness - Referrals Referrals: José Denis MD [Primary Care Provider] - - Attestations Physician Attestion: 11/07/16 21:29 I, Dr. Grover Thacker, attest that this document has been prepared under my direction and personally reviewed by me in its entirety. I further attest, that it accurately reflects all work, treatment, procedures and medical decision -making performed by me.
--- NOTE | 2016-11-07 21:13 | PDOC ---
Attending Attestation - HPI HPI: 11/08/16 00:31 The patient is a 76 year old female with significant past medical history of breast CA s/p mastectomy, hypertension, hyperlipidemia, diabetes type II, dyslipidemia, and UTIs who presents to the ED for generalized weakness and malaise x1 day. The patient denies fever, chills, diaphoresis, cough, SOB, chest pain, and palpitations. The patient denies abdominal pain, nausea, vomiting, and diarrhea. PCP: Dr. José Denis Cardio: Dr. Jj Gottleib - Physicial Exam PE: 11/08/16 00:31 GENERAL: Well-appearing, well-nourished. No apparent distress. HEENT: Normocephalic, atraumatic. PERRL, EOM intact. CARDIOVASCULAR: Normal S1, S2. Regular rate and rhythm. PULMONARY: Clear to auscultation bilaterally. ABDOMEN: Soft, non-distended, non-tender. EXTREMITIES: Normal ROM in all four extremities. No gross deformities. SKIN: Warm, dry. No rash NEUROLOGICAL: No focal neurological deficits. <Clarita Boudreaux - Last Filed: 11/08/16 00:31> - Resident Resident Name: Grover Thacker - ED Attending Attestation I have performed the following: I have examined & evaluated the patient, The case was reviewed & discussed with the resident, I agree w/resident's findings & plan, Exceptions are as noted - Physicial Exam PE: 11/08/16 19:13 *Physical Exam General Appearance: Yes: Appropriately Dressed. No: Apparent Distress, Intoxicated HEENT: positive: EOMI, LINDSEY, Normal ENT Inspection, Normal Voice, TMs Normal, Pharynx Normal. negative: Pale Conjunctivae, Photophobia, Scleral Icterus (R), Scleral Icterus (L) Neck: positive: Trachea midline, Normal Thyroid, Supple. negative: Tender, Rigid, Carotid bruit, Stridor, Lymphadenopathy (R), Lymphadenopathy (L), Thyromegaly Respiratory/Chest: positive: Lungs Clear, Normal Breath Sounds. negative: Chest Tender, Respiratory Distress, Accessory Muscle Use, Labored Respiration, RES, Crackles, Rales, Rhonchi, Stridor, Wheezing, Dullness Cardiovascular: positive: Regular Rhythm, Regular Rate, S1, S2. negative: Edema , JVD, Murmur, Bradycardia, Tachycardia Vascular Pulses: Dorsalis-Pedis (R): 2+, Doralis-Pedis (L): 2+ Gastrointestinal/Abdominal: positive: Normal Bowel Sounds, Flat, Soft. negative : Tender, Organomegaly, Pulsatile Mass, Increased Bowel Sounds, Decreased BS, Distended, Guarding, Rebound, Hernia, Hepatomegaly, Spleenomegaly Lymphatic: negative: Adenopathy, Tenderness Musculoskeletal: positive: Normal Inspection. negative: CVA Tenderness, Decreased Range of Motion Extremity: positive: Normal Capillary Refill, Normal Inspection, Normal Range of Motion, Pelvis Stable. negative: Tender, Pedal Edema, Swelling, Erythema Integumentary: positive: Normal Color, Dry, Warm. 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 negative: EOM Palsy, Facial Droop, Sensory Deficit - Medical Decision Making 11/08/16 00:26 Pt with recurrent UTI and worsening kidney function. Spoke to daughter to bring pt for evaluation to PCP. <Efraín Lopez - Last Filed: 11/08/16 19:13> Discharge Disposition - Discharge Dispostion Last Admission D/C Date: 12/21/14 <Clarita Boudreaux - Last Filed: 11/08/16 00:31> <Efraín Lopez - Last Filed: 11/08/16 19:13> - Diagnosis Generalized muscle weakness, Urinary tract infection - Discharge Dispostion Disposition: HOME Condition at time of disposition: Good - Prescriptions Prescriptions: Levofloxacin [Levaquin -] 250 mg PO DAILY #7 tablet - Referrals Referrals: José Denis MD [Primary Care Provider] - - Patient Instructions Printed Discharge Instructions: DI for Urinary Tract Infection (UTI) - Post Discharge Activity Medical Decision Making - Medical Decision Making 11/08/16 00:32 Documentation prepared by Clarita Boudreaux, acting as emergency medical service manager for Efraín Lopez MD/DO. <Clarita Boudreaux - Last Filed: 11/08/16 00:31>
[2016-11-07] MEDS ORDERED: SODIUM CHLORIDE 1,000 ML IV STA (21:15)
[2016-11-07 21:43] LABS: BASOPHIL 0.8 % (0-2.0); MCH 29.6 pg (25.7-33.7); MCHC 32.9 g/dl (32.0-36.0); MEAN PLT VOLUME 8.8 fl (7.5-11.1); NEUTROPHILS 73.1 % (42.8-82.8); PLATELET COUNT 218 K/MM3 (134-434); RDW 12.7 % (11.6-15.6); WHITE BLOOD COUNT 12.5 K/mm3 (4.0-10.0)
[2016-11-07 22:12] LABS: ANION GAP 10 (8-16); CALCIUM 8.9 mg/dL (8.5-10.1); CO2 25 mmol/L (21-32); CREATININE 2.6 mg/dL (0.55-1.02); GLUCOSE,RANDOM 259 mg/dL (74-106)
[2016-11-07 23:06] LABS: URINE APPEARANCE CLEAR; URINE BILIRUBIN NEGATIVE (NEGATIVE); URINE BLOOD NEGATIVE (NEGATIVE); URINE COLOR COLORLESS; URINE GLUCOSE (UA) NEGATIVE (NEGATIVE); URINE KETONE NEGATIVE (NEGATIVE); URINE NITRITE NEGATIVE (NEGATIVE); URINE PROTEIN NEGATIVE (NEGATIVE); URINE UROBILINOGEN NEGATIVE E.U./dl (0.2-1.0)
[2016-11-07 23:13] LABS: URINE LEUK ESTERASE 2+ (NEGATIVE)
[2016-11-07 23:15] LABS: URINE BACTERIA RARE /hpf (NONE SEEN); URINE MUCUS RARE; URINE RBC 1 /hpf (0-3); URINE WBC 39 /hpf (3-5)
[2016-11-08] MEDS ORDERED: LEVOFLOXACIN 250 MG TABLET (FP) PO ONE (00:24)
--- NOTE | 2016-11-08 00:30 | PDOC ---
*Physical Exam - Vital Signs Last Vital Signs Temp Pulse Resp BP Pulse Ox 99.4 F 108 H 18 117/70 98 11/07/16 20:33 11/07/16 20:33 11/07/16 20:33 11/07/16 20:33 11/07/16 20:33 ED Treatment Course - LABORATORY CBC & Chemistry Diagram: 11/07/16 21:30 11/07/16 21:30 - ADDITIONAL ORDERS Additional order review: Laboratory Results 11/07/16 11/07/16 21:30 21:25 Sodium 139 Potassium 4.6 Chloride 104 Carbon Dioxide 25 Anion Gap 10 BUN 24 H D Creatinine 2.6 H D Random Glucose 259 H D Calcium 8.9 Urine Color Colorless Urine Appearance Clear Urine pH 6.0 Urine Protein Negative Urine Glucose (UA) Negative Urine Ketones Negative Urine Blood Negative Urine Nitrite Negative Urine Bilirubin Negative Urine Urobilinogen Negative Ur Leukocyte Esterase 2+ H Urine RBC 1 Urine WBC 39 Ur Epithelial Cells Many Urine Bacteria Rare Urine Mucus Rare 11/07/16 21:30 RBC 3.89 MCV 90.0 MCHC 32.9 RDW 12.7 MPV 8.8 Neutrophils % 73.1 Lymphocytes % 17.6 Monocytes % 7.5 Eosinophils % 1.0 Basophils % 0.8 - Medications Given in the ED: ED Medications Discontinued Medications Generic Name Dose Route Start Last Admin Trade Name Adriano PRN Reason Stop Dose Admin Sodium Chloride 1,000 mls @ 1,000 mls/hr 11/07/16 21:15 11/07/16 21:38 Normal Saline - IV 11/07/16 22:14 1,000 mls/hr ASDIR STA Administration *DC/Admit/Observation/Transfer Diagnosis at time of Disposition: Generalized muscle weakness, Urinary tract infection - Discharge Dispostion Disposition: HOME Condition at time of disposition: Stable Admit: No - Prescriptions Prescriptions: Levofloxacin [Levaquin -] 250 mg PO DAILY #7 tablet - Referrals Referrals: José Denis MD [Primary Care Provider] - - Patient Instructions Printed Discharge Instructions: DI for Urinary Tract Infection (UTI) - Post Discharge Activity
[2016-11-08] MEDS ORDERED: LEVOFLOXACIN 250 MG TABLET (FP) ONE (00:33)
--- NOTE | 2016-11-09 13:12 | EKG ---
Test Reason : Blood Pressure : / mmHG Vent. Rate : 095 BPM Atrial Rate : 095 BPM P-R Int : 154 ms QRS Dur : 118 ms QT Int : 384 ms P-R-T Axes : 040 -21 103 degrees QTc Int : 482 ms NORMAL SINUS RHYTHM LEFT BUNDLE BRANCH BLOCK ABNORMAL ECG Confirmed by IBAN LERMA MD ([id number]) on 11/09/2016 1:12:26 PM Referred By: Confirmed By:IBAN LERMA MD
== END 2016-11-08 00:43 | disposition home or self-care (01) ==
LOC: JER 20:19
PROC: 3E0337Z Introduction of Electrolytic and Water Balance Substance into Peripheral Vein, Percutaneous Approach (ICD-10-PCS; principal; 2016-11-07)
DX: N39.0 Urinary tract infection, site not specified (principal); I10 Essential (primary) hypertension; E78.00 Pure hypercholesterolemia, unspecified; E11.9 Type 2 diabetes mellitus without complications; Z79.84 Long term (current) use of oral hypoglycemic drugs; Z85.3 Personal history of malignant neoplasm of breast; Z87.440 Personal history of urinary (tract) infections
CPT/HCPCS: 36415; 80048; 81003; 81015; 85025; 87086; 93005; 93010; 96360; 99283-25

== ENCOUNTER 2016-11-23 21:31 | Emergency (ER) | payer OTHER ==
[2016-11-23 21:39] VITALS: BP 137/63; PULSE 94; TEMP 99.3; BMI 27.4
--- NOTE | 2016-11-23 22:38 | PDOC ---
History of Present Illness - General History Source: Patient Exam Limitations: No Limitations - History of Present Illness Initial Comments: 11/23/16 22:48 The patient is a 76 year old female with a significant past medical history of diabetes, recurrent UTIs, and renal insufficiency who presents to the ED with complaints of bilateral foot edema for 5 days. The patient reports a gradual onset of bilateral foot edema on Sunday. She states she visited her PMD on Sunday for present symptoms and states her blood sugar level was at 233 and her PMD changed her diabetes medication. Patient notes her bilateral foot edema resided on Sunday but states the symptoms returned today. She reports progressively worsening bilateral foot edema that is now constant. Denies foot pain. Denies fever or chills. Denies nausea, vomiting, or diarrhea. Denies changes in urinary output. Denies chest pain or shortness of breath. Denies any other symptoms PMD: Dr. Denis <Jaclyn Gomez - Last Filed: 11/23/16 22:48> - General History Source: Patient <Efraín Lopez - Last Filed: 11/24/16 01:07> - General Chief Complaint: Edema Stated Complaint: SWOLLEN LEGS Time Seen by Provider: 11/23/16 22:38 Past History <Jaclyn Gomez - Last Filed: 11/23/16 22:48> - Past Medical History Anemia: No Asthma: No Cancer: Yes (Rt breast 02/08) Cardiac Disorders: No CVA: No COPD: No CHF: No Dementia: No Diabetes: Yes (1999) GI Disorders: Yes (Constipation) Disorders: No HTN: Yes Hypercholesterolemia: Yes Liver Disease: No Suicide Attempt (Hx): No Seizures: No Thyroid Disease: No - Surgical History Abdominal Surgery: No Appendectomy: No Cardiac Surgery: No Cholecystectomy: No Lung Surgery: No Neurologic Surgery: No Orthopedic Surgery: No - Immunization History Immunization Up to Date: No - Psycho/Social/Smoking Cessation Hx Anxiety: No Suicidal Ideation: No Smoking Status: No Smoking History: Never smoked Have you smoked in the past 12 months: No Number of Cigarettes Smoked Daily: 0 Hx Alcohol Use: No Drug/Substance Use Hx: No Substance Use Type: None Hx Substance Use Treatment: No <Efraín Lopez - Last Filed: 11/24/16 01:07> - Past Medical History Allergies/Adverse Reactions: Allergies Allergy/AdvReac Type Severity Reaction Status Date / Time No Known Drug Allergies Allergy Verified 11/23/16 21:39 Home Medications: Ambulatory Orders Aspirin [Aspirin EC] 81 mg PO DAILY 11/23/16 Insulin Degludec [Tresiba Flextouch U-100] 12 unit SQ AM 11/23/16 Linagliptin/Metformin HCl [Jentadueto 2.5 mg-1000 mg Tab] 1 each PO BID Losartan Potassium 25 mg PO DAILY 11/23/16 Metformin HCl 500 mg PO BID 11/23/16 Metoprolol Succinate [Toprol Xl] 50 mg PO DAILY 11/23/16 Nifedipine ER [Procardia Xl -] 30 mg PO DAILY 11/23/16 Tamoxifen Citrate 20 mg PO DAILY 11/23/16 Atorvastatin Ca [Lipitor] 40 mg PO HS 11/24/16 Review of Systems - Review of Systems Able to Perform ROS?: Yes Comments:: 11/23/16 22:48 CONSTITUTIONAL: Absent: fever, chills, diaphoresis, generalized weakness, malaise, loss of appetite HEENT: Absent: rhinorrhea, nasal congestion, throat pain, throat swelling, difficulty swallowing, mouth swelling, ear pain, eye pain, visual Changes CARDIOVASCULAR: Absent: chest pain, syncope, palpitations, irregular heart rate, lightheadedness , peripheral edema RESPIRATORY: Absent: cough, shortness of breath, dyspnea with exertion, orthopnea, wheezing, stridor, hemoptysis GASTROINTESTINAL: Absent: abdominal pain, abdominal distension, nausea, vomiting, diarrhea, constipation, melena, hematochezia GENITOURINARY: Absent: dysuria, frequency, urgency, hesitancy, hematuria, flank pain, genital pain MUSCULOSKELETAL: Absent: myalgia, arthralgia, joint swelling SKIN: + foot edema Absent: rash, itching, pallor HEMATOLOGIC/IMMUNOLOGIC: Absent: easy bleeding, easy bruising, lymphadenopathy, frequent infections ENDOCRINE: Absent: unexplained weight gain, unexplained weight loss, heat intolerance, cold intolerance NEUROLOGIC: Absent: headache, focal weakness or paresthesias, dizziness, unsteady gait, seizure, mental status changes, bladder or bowel incontinence PSYCHIATRIC: Absent: anxiety, depression, suicidal or homicidal ideation, hallucinations. All Other Systems: Reviewed and Negative <Jaclyn Gomez - Last Filed: 11/23/16 22:48> *Physical Exam - Vital Signs Last Vital Signs Temp Pulse Resp BP Pulse Ox 99.3 F 94 H 18 137/63 99 11/23/16 21:35 11/23/16 21:35 11/23/16 21:35 11/23/16 21:35 11/23/16 21:35 - Physical Exam Comments: 11/23/16 22:49 GENERAL: Well developed, well nourished. Awake and alert. No acute distress. HEENT: Normocephalic, atraumatic. PERRLA, EOMI. No conjunctival pallor. Sclera are non- icteric. Moist mucous membranes. Oropharynx is clear. NECK: Supple. Full ROM. No JVD. Carotid pulses 2+ and symmetric, without bruits. No thyromegaly. NCo lymphadenopathy. CARDIOVASCULAR: Regular rate and rhythm. No murmurs, rubs, or gallops. Distal pulses are 2+ and symmetric. PULMONARY: No evidence of respiratory distress. Lungs clear to auscultation bilaterally. No wheezing, rales or rhonchi. ABDOMINAL: Soft. Non-tender. Non-distended. No rebound or guarding. No organomegaly. Normoactive bowel sounds. MUSCULOSKELETAL Normal range of motion at all joints. No bony deformities or tenderness. No CVA tenderness. EXTREMITIES: + edema of both ankles but is not pitting. No cyanosis. No clubbing. No edema. No calf tenderness. SKIN: Warm and dry. Normal capillary refill. No rashes. No jaundice. NEUROLOGICAL: Alert, awake, appropriate. Cranial nerves 2-12 intact. No deficits to light touch and temperature in face, upper extremities and lower extremities. No motor deficits in the in face, upper extremities and lower extremities. Normoreflexic in the upper and lower extremities. Normal speech. Toes are down- going bilaterally. Gait is normal without ataxia. PSYCHIATRIC: Cooperative. Good eye contact. Appropriate mood and affect. <Jaclyn Gomez - Last Filed: 11/23/16 22:48> - Vital Signs Last Vital Signs Temp Pulse Resp BP Pulse Ox 99.3 F 94 H 18 137/63 99 11/23/16 21:35 11/23/16 21:35 11/23/16 21:35 11/23/16 21:35 11/23/16 21:35 <Efraín Lopez - Last Filed: 11/24/16 01:07> ED Treatment Course - LABORATORY CBC & Chemistry Diagram: 11/23/16 23:13 11/23/16 23:13 <Efraín Lopez - Last Filed: 11/24/16 01:07> *DC/Admit/Observation/Transfer - Attestations Scribe Attestion: 11/23/16 22:49 Documentation prepared by Jaclyn Gomez, acting as medical claims processor for Efraín Lopez MD <Jaclyn Gomez - Last Filed: 11/23/16 22:48> - Discharge Dispostion Admit: No <Efraín Lopez - Last Filed: 11/24/16 01:07> Diagnosis at time of Disposition: Peripheral edema - Discharge Dispostion Disposition: HOME Condition at time of disposition: Stable - Patient Instructions Printed Discharge Instructions: DI for Peripheral Edema -- Bilateral
[2016-11-23 23:32] LABS: BASOPHIL 0.7 % (0-2.0); EOSINOPHIL 2.5 % (0-4.5); MCH 30.1 pg (25.7-33.7); MCHC 33.3 g/dl (32.0-36.0); MEAN CELL VOLUME 90.3 fl (80-96); MEAN PLT VOLUME 9.1 fl (7.5-11.1); NEUTROPHILS 56.2 % (42.8-82.8); PLATELET COUNT 283 K/MM3 (134-434); RDW 12.7 % (11.6-15.6); WHITE BLOOD COUNT 10.4 K/mm3 (4.0-10.0)
[2016-11-23 23:45] LABS: URINE APPEARANCE CLEAR; URINE BILIRUBIN NEGATIVE (NEGATIVE); URINE BLOOD NEGATIVE (NEGATIVE); URINE COLOR STRAW; URINE GLUCOSE (UA) NEGATIVE (NEGATIVE); URINE KETONE NEGATIVE (NEGATIVE); URINE NITRITE NEGATIVE (NEGATIVE); URINE PROTEIN NEGATIVE (NEGATIVE); URINE UROBILINOGEN NEGATIVE mg/dL (0.2-1.0)
[2016-11-23 23:48] LABS: URINE LEUK ESTERASE 2+ (NEGATIVE)
[2016-11-23 23:51] LABS: URINE RBC 2 /hpf (0-3); URINE WBC 36 /hpf (3-5)
[2016-11-23 23:53] LABS: ANION GAP 11 (8-16); CALCIUM 8.2 mg/dL (8.5-10.1); CO2 29 mmol/L (21-32); CREATININE 1.1 mg/dL (0.55-1.02); GLUCOSE,RANDOM 217 mg/dL (74-106)
== END 2016-11-24 01:06 | disposition home or self-care (01) ==
LOC: JER 21:31
DX: R60.0 Localized edema (principal); E11.9 Type 2 diabetes mellitus without complications; Z79.4 Long term (current) use of insulin; Z79.84 Long term (current) use of oral hypoglycemic drugs; I10 Essential (primary) hypertension; E78.00 Pure hypercholesterolemia, unspecified
CPT/HCPCS: 36415; 80048; 81003; 81015; 85025; 93970-TC; 99282-25

== ENCOUNTER 2017-01-12 23:34 | Inpatient (IN) | payer OTHER ==
--- NOTE | 2017-01-12 23:49 | PDOC ---
History of Present Illness - General Chief Complaint: Weakness Stated Complaint: FATIGUE Time Seen by Provider: 01/12/17 23:49 - History of Present Illness Initial Comments: 76 year old female with chronic UTIs ( on Macrobid ppx every other day), breast cancer (s/p R sided mastectomy last year, currently on Tamoxifen daily), HTN, and DMII presenting with generalized weakness, decreased appetite, elevated blood sugar and nausea for the past 10 hours. Patient has had frequent urination over the past 4 days but denies dysuria, change in urinary color, or malodorous urine. She also has experienced some rhinorrhea with generalized weakness, appetite loss, and nausea. She recorded a fever today of 100.7. Denies chest pains, palpitations, diaphoresis, vomiting, diarrhea, change in vision, cough, or sick contacts. She has been worked up by her urologist for her frequent UTIs. Her PCP is Dr. José Denis and her urologist is Dr. Uri Berger. 01/13/17 00:23 Past History - Past Medical History Allergies/Adverse Reactions: Allergies Allergy/AdvReac Type Severity Reaction Status Date / Time No Known Drug Allergies Allergy Verified 01/12/17 23:48 Home Medications: Ambulatory Orders Aspirin [Aspirin EC] 81 mg PO DAILY 11/23/16 Insulin Degludec [Tresiba Flextouch U-100] 12 unit SQ AM 11/23/16 Losartan Potassium 25 mg PO DAILY 11/23/16 Metformin HCl 500 mg PO BID 11/23/16 Metoprolol Succinate [Toprol Xl] 50 mg PO DAILY 11/23/16 Tamoxifen Citrate 20 mg PO DAILY 11/23/16 Atorvastatin Ca [Lipitor] 40 mg PO DAILY 11/24/16 Lubiprostone [Amitiza] 8 mcg PO BID 01/13/17 Nitrofurantoin Monohyd/M-Cryst [Nitrofurantoin Sac-Mcr 100 mg] 100 mg PO DAILY 01/13/17 Anemia: No Asthma: No Cancer: Yes (Rt breast 02/08) Cardiac Disorders: No CVA: No COPD: No CHF: No Dementia: No Diabetes: Yes (1999) GI Disorders: Yes (Constipation) Disorders: No HTN: Yes Hypercholesterolemia: Yes Liver Disease: No Suicide Attempt (Hx): No Seizures: No Thyroid Disease: No - Surgical History Abdominal Surgery: No Appendectomy: No Cardiac Surgery: No Cholecystectomy: No Lung Surgery: No Neurologic Surgery: No Orthopedic Surgery: No - Immunization History Immunization Up to Date: No - Psycho/Social/Smoking Cessation Hx Anxiety: No Suicidal Ideation: No Smoking Status: No Smoking History: Never smoked Have you smoked in the past 12 months: No Number of Cigarettes Smoked Daily: 0 Hx Alcohol Use: No Drug/Substance Use Hx: No Substance Use Type: None Hx Substance Use Treatment: No Review of Systems - Review of Systems Constitutional: Yes: Chills, Fever. No: Diaphoresis HEENTM: No: Blurred Vision, Recent change in vision, Double Vision Respiratory: No: Cough, Shortness of Breath, Wheezing Cardiac (ROS): No: Chest Pain, Irregular Heart Rate, Lightheadedness, Palpitations, Chest Tightness ABD/GI: Yes: Nausea, Poor Appetite. No: Constipated, Diarrhea, Vomiting : Yes: Frequency. No: Burning, Dysuria, Discharge Integumentary: No: Bruising, Change in Color, Erythema *Physical Exam - Physical Exam General Appearance: Yes: Nourished, Appropriately Dressed. No: Apparent Distress HEENT: positive: EOMI, LINDSEY, Normal ENT Inspection, Normal Voice, Other (Some mucous in her nares) Neck: positive: Trachea midline, Normal Thyroid, Supple. negative: Tender, Rigid Respiratory/Chest: positive: Lungs Clear, Normal Breath Sounds. negative: Chest Tender, Respiratory Distress, Accessory Muscle Use Cardiovascular: positive: Regular Rhythm, Regular Rate, S1, S2. negative: Edema , JVD, Murmur Gastrointestinal/Abdominal: positive: Normal Bowel Sounds, Flat, Soft. 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 UA clear, CXR clear, but WBC of 19 with left shift and low grade fever of 99.2 with lactate of 3.4 and sugar of 347. Patient given 1 L of NS with lactate repeated and sugar down to 200s. Additional liter given along with vanc and zosyn. Patient admitted under Dr. Walker with Dr. Esqueda as an ID consult as source of infection is unclear. 01/13/17 04:03 *DC/Admit/Observation/Transfer Diagnosis at time of Disposition: Leukocytosis (leucocytosis), Increased lactic acid level - Discharge Dispostion Condition at time of disposition: Stable Admit: Yes - Referrals Referrals: José Denis MD [Primary Care Provider] -
[2017-01-13] MEDS ORDERED: SODIUM CHLORIDE 0.9% 1000 ML INFUS.BAG IV ONE (00:22)
[2017-01-13 01:02] LABS: BASOPHIL 0.5 % (0-2.0); EOSINOPHIL 0.4 % (0-4.5); MCH 29.7 pg (25.7-33.7); MCHC 32.6 g/dl (32.0-36.0); MEAN CELL VOLUME 91.2 fl (80-96); MEAN PLT VOLUME 8.5 fl (7.5-11.1); NEUTROPHILS 92.7 % (42.8-82.8); PLATELET COUNT 286 K/MM3 (134-434); RDW 13.4 % (11.6-15.6); WHITE BLOOD COUNT 19.3 K/mm3 (4.0-10.0)
[2017-01-13 01:04] LABS: URINE APPEARANCE CLEAR; URINE BILIRUBIN NEGATIVE (NEGATIVE); URINE BLOOD NEGATIVE (NEGATIVE); URINE COLOR YELLOW; URINE GLUCOSE (UA) 3+ (NEGATIVE); URINE KETONE NEGATIVE (NEGATIVE); URINE NITRITE NEGATIVE (NEGATIVE); URINE PROTEIN NEGATIVE (NEGATIVE); URINE UROBILINOGEN NEGATIVE mg/dL (0.2-1.0)
--- NOTE | 2017-01-13 01:18 | PDOC ---
Attending Attestation - Resident Resident Name: Judson Heckjairha - HPI HPI: 01/13/17 01:16 This is a 69-year-old who comes in complaining of feeling weak. Patient also has a low-grade fever and her sugar today was very high. Patient said over 450. Chest pain, cough, congestion, shortness of breath. Patient history is significant infections the source of her symptoms. - Physicial Exam PE: 01/13/17 01:18 Exam: General: Well-nourished well-developed individual, no acute distress HEENT: Throat: Normal, tonsils normal, no erythema or exudate Neck: Supple, no meningeal signs, no lymphadenopathy Eyes::Pupils equal reactive and round, extraocular motion intact Chest: Nontender to palpation Cardiac: S1-S2 normal, regular rate and rhythm, no murmurs rubs or gallops Respiratory: Lungs clear to auscultation bilateral Abdomen: Soft, nondistended, normal bowel sounds, nontender to palpation diffusely Extremities: Warm, dry, no cyanosis, clubbing, or edema Skin: No rashes Neuro: Alert and oriented x3, nonfocal exam, grossly intact, normal gait Psych: Normal mood and affect 01/13/17 01:18 - Medical Decision Making 01/13/17 04:41 Assessment and plan: This is a 76 year old female who comes in for evaluation of weakness and not feelimg well. Pt was noted to have hyperkalemia, hyperglyemia, Pt give Ca for the elevated K and insulin. Pt admitted to an inpatient bed.
[2017-01-13 01:30] LABS: URINE LEUK ESTERASE 1+ (NEGATIVE)
[2017-01-13 01:36] LABS: URINE BACTERIA RARE /hpf (NONE SEEN); URINE RBC <1 /hpf (0-3); URINE WBC 13 /hpf (3-5)
[2017-01-13 01:38] LABS: ALBUMIN 3.2 g/dl (3.4-5.0); ALK PHOS 58 U/L (45-117); ANION GAP 10 (8-16); BILIRUBIN,TOTAL 0.6 mg/dL (0.2-1.0); CALCIUM 8.8 mg/dL (8.5-10.1); CO2 27 mmol/L (21-32); CREATININE 1.2 mg/dL (0.55-1.02); SGOT/AST 20 U/L (15-37); SGPT/ALT 25 U/L (12-78); TOT PROT 6.5 g/dl (6.4-8.2)
[2017-01-13 01:43] LABS: GLUCOSE,RANDOM 347 mg/dL (74-106)
[2017-01-13 02:02] LABS: VENOUS PH 7.4 (7.32-7.42)
[2017-01-13 02:03] LABS: VENOUS BLOOD GAS HCO3 26.7 meq/L (19-25)
[2017-01-13] MEDS ORDERED: SODIUM CHLORIDE 1,000 ML IV STA (03:57)
[2017-01-13] MEDS ORDERED: VANCOMYCIN 1,000 MG in DEXTROSE 5%-WATER - 250 ML IVPB ONE (04:17)
[2017-01-13] MEDS ORDERED: PIPERACILLIN/TAZOB 4.5 GM/100 ML PRE-DOCKED IVPB ONE (04:19)
[2017-01-13] MEDS ORDERED: PIPERACILLIN/TAZOB 4.5 GM 100 ML IVPB ONE (04:27)
[2017-01-13] MEDS ORDERED: VANCOMYCIN 1 GRAM (PRE-DOCKED) 250 ML IVPB ONE (04:27)
[2017-01-13] MEDS ORDERED: ACETAMINOPHEN 325 MG TABLET (FP) ONE (06:14)
[2017-01-13] MEDS ORDERED: ACETAMINOPHEN 325 MG TABLET (FP) PO ONE (06:19)
[2017-01-13] MEDS ORDERED: TAMOXIFEN CITRATE 10 MG TABLET PO SCH (10:00)
[2017-01-13] MEDS ORDERED: ATORVASTATIN CA 40 MG TABLET (FP) PO SCH (10:00)
[2017-01-13] MEDS ORDERED: LOSARTAN POTASSIUM 25 MG TABLET PO SCH (10:00)
[2017-01-13] MEDS ORDERED: (Lubiprostone [Amitiza] 8 MCG) PO SCH ×2 (10:00→16:24)
[2017-01-13] MEDS: ACETAMINOPHEN 325 MG TABLET (FP) PO PRN ×2 (10:15→19:53)
[2017-01-13 10:53] VITALS: BMI 27.1
[2017-01-13] MEDS ORDERED: INSULIN (NOVOLOG) ASPART 100 UNITS/ML 10ML VIAL ONE (11:10)
[2017-01-13] MEDS: metFORMIN HCL 500 MG TABLET (FP) PO SCH ×2 (11:44→17:03)
[2017-01-13] MEDS: METOPROLOL SUCCINATE 50 MG TAB.SR.24H (FP) PO SCH (11:44)
[2017-01-13] MEDS: ASPIRIN COATED 81 MG TABLET.EC PO SCH (11:45)
[2017-01-13] MEDS: INSULIN SLIDING SCALE (NOVOLOG) 1 VIAL SQ SCH ×3 (11:45→21:43)
--- NOTE | 2017-01-13 12:05 | CON.ID ---
Consult Consult Specialty:: INFECTIOUS DISEASE Reason for Consultation:: fever, leukocytosis - History of Present Illness Chief Complaint: weakness and nausea since yesterday History of Present Illness: 76 y.o. female (non-Central African speaking) with history of Breast CA s/p Lt mastectomy and implant, uncontrolled DM, chronic UTIs on macrobid prophylactically, and HTN presenting with weakness, nausea, poor appetite and generally not feeling well since yesterday. She is noncompliant with diabetes medications as per daughter who served as an machine lead burner. She has been having low grade fever and noted to have leukocytosis with elevated lactate level. Pt also with urinary frequency and hyperglycemia. She denies dysuria, suprapubic or CVA tenderness but has chills. 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: Alzheimer's, CVA, Dementia, Migraine, Multiple Sclerosis, Peripheral Neuropathy, Parkinson's, Seizure, Syncope, TIA, Vertigo, Other Cardio/Vascular: Yes: HTN Pulmonary: No: Asthma, Bronchitis, Cancer, COPD, O2 Dependent, Pneumonia, Previously Intubated, Pulmonary Embolus, Pulmonary Fibrosis, Sleep Apnea, Other Gastrointestinal: Yes: Other (chronic conspitation, nausea) Hepatobiliary: No: Cirrhosis, Cholelithiasis, Cholecystitis, Choledocholithiasis , Hepatitis A, Hepatitis B, Hepatitis C, Other Renal/: Yes: UTI Reproductive: No: Ectopic , Endometriosis, Fibroids, PID, Polycystic Ovary Syndrome, Postmenopausal, Other ...: No Heme/Onc: No: Anemia, B12 Deficiency, Bleeding Disorder, Cancer, Current Chemotherapy, Current Radiation Therapy, Hemochromatosis, Hypercoaguable State, Myeloproliferative Synd, Sickle Cell Disease, Sickle Cell Trait, Thrombocytopenia, Other Infectious Disease: Yes: Other (Hx UTI) Psych: No: Addictions, Anxiety, Bipolar, Depression, Panic, Psychosis, Schizophrenia, Other Musculoskeletal: No: Bursitis, Chronic low back pain, Hemiparesis, Hemiplegia, Osteoarthritis, Paraplegia, Other Rheumatology: No: Fibromyalgia, Gout, Lupus, Rheumatoid Arthritis, Sarcoidosis, Vasculitis, Other Endocrine: Yes: Diabetes Mellitus Dermatology: No: Basal Cell, Cellulitis, Eczema, Melanoma, Psoriasis, Squamous Cell, Other - Past Surgical History Past Surgical History: Yes: Mastectomy - Alcohol/Substance Use Hx Alcohol Use: No History of Substance Use: reports: None - Smoking History Smoking history: Never smoked Have you smoked in the past 12 months: No Aproximately how many cigarettes per day: 0 - Social History ADL: Family Assistance History of Recent Travel: No Home Medications - Allergies Allergies/Adverse Reactions: Allergies Allergy/AdvReac Type Severity Reaction Status Date / Time No Known Drug Allergies Allergy Verified 01/12/17 23:48 - Home Medications Home Medications: Ambulatory Orders Aspirin [Aspirin EC] 81 mg PO DAILY 11/23/16 Insulin Degludec [Tresiba Flextouch U-100] 12 unit SQ AM 11/23/16 Losartan Potassium 25 mg PO DAILY 11/23/16 Metformin HCl 500 mg PO BID 11/23/16 Metoprolol Succinate [Toprol Xl] 50 mg PO DAILY 11/23/16 Tamoxifen Citrate 20 mg PO DAILY 11/23/16 Atorvastatin Ca [Lipitor] 40 mg PO DAILY 11/24/16 Lubiprostone [Amitiza] 8 mcg PO BID 01/13/17 Nitrofurantoin Monohyd/M-Cryst [Nitrofurantoin Posey-Mcr 100 mg] 100 mg PO Q2D MDD every other day 01/13/17 Review of Systems - Review of Systems Constitutional: reports: Chills, Fever, Loss of Appetite Eyes: reports: No Symptoms HENT: reports: No Symptoms Neck: reports: No Symptoms Cardiovascular: reports: No Symptoms Respiratory: reports: No Symptoms Gastrointestinal: reports: Nausea Genitourinary: reports: Frequency Breasts: reports: Other (Lt mastectomy with implant) Musculoskeletal: reports: No Symptoms Integumentary: reports: No Symptoms Neurological: reports: No Symptoms Hematology/Lymphatic: reports: No Symptoms Psychiatric: reports: No Symptoms Physical Exam Vital Signs: Vital Signs Temperature 100.7 F H 01/13/17 10:31 Pulse Rate 96 H 01/13/17 10:31 Respiratory Rate 18 01/13/17 10:31 Blood Pressure 107/51 01/13/17 10:31 O2 Sat by Pulse Oximetry (%) 93 L 01/13/17 10:31 Constitutional: Yes: No Distress HENT: Yes: WNL Neck: Yes: WNL Cardiovascular: Yes: Regular Rate and Rhythm Respiratory: Yes: CTA Bilaterally Gastrointestinal: Yes: Normal Bowel Sounds, Soft Renal/: Yes: WNL Breast(s): Yes: Other (Lt mastectomy with implants) Musculoskeletal: Yes: WNL Extremities: Yes: WNL Neurological: Yes: Alert, Oriented ...Motor Strength: WNL Psychiatric: Yes: Alert, Oriented Labs: CBC, BMP 01/13/17 00:50 01/13/17 00:50 Imaging - Results Chest X-ray: Report Reviewed (no acute infiltrates) Problem List - Problems (1) Lactate blood increase Code(s): R79.89 - OTHER SPECIFIED ABNORMAL FINDINGS OF BLOOD CHEMISTRY (2) Leukocytosis (leucocytosis) Code(s): D72.829 - ELEVATED WHITE BLOOD CELL COUNT, UNSPECIFIED (3) Generalized muscle weakness Code(s): M62.81 - MUSCLE WEAKNESS (GENERALIZED) (4) History of breast cancer in female Code(s): Z85.3 - PERSONAL HISTORY OF MALIGNANT NEOPLASM OF BREAST (5) Sepsis Code(s): A41.9 - SEPSIS, UNSPECIFIED ORGANISM (6) Uncontrolled diabetes mellitus Code(s): E11.65 - TYPE 2 DIABETES MELLITUS WITH HYPERGLYCEMIA (7) Urinary tract infection Code(s): N39.0 - URINARY TRACT INFECTION, SITE NOT SPECIFIED Assessment/Plan Sepsis, Possible UTI Hx of Chronic UTIs Uncontrolled DM - continue Zosyn/Vancomycin empirically for now - f/u on blood/urine cultures - monitor wbc and temperature trend, repeat lactic acid will follow up
[2017-01-13] MEDS ORDERED: PIPERACILLIN/TAZOBACTAM 3.375 GM VIAL IVPB ONE ×2 (14:32→18:45)
[2017-01-13] MEDS ORDERED: DEXTROSE 5%-WATER - 50 ML IVPB ONE ×2 (14:32→18:45)
[2017-01-13] MEDS: PIPERACILLIN/TAZOB 3.375 GM 3.375 GM in DEXTROSE 5%-WATER - 50 ML IVPB SCH ×2 (14:43→18:52)
[2017-01-13] MEDS: VANCOMYCIN 1 GRAM (PRE-DOCKED) 250 ML IVPB SCH (17:01)
--- NOTE | 2017-01-13 21:22 | HP ---
Admitting History and Physical - Admission History of Present Illness: Pt is a 76 y/o sami speaking female who is a poor historian however her daughter is at bedside. Pt for the past 24 hrs was complaining of genralized malaise/weakness and was noted to have a temp of 100.7 at home. Family also noted that her glucose readings at home were elevated >250. In the ER pt found to have wbc OF 19,000 AND Lactic acid of 3.4. Pt denies any abdominal pain/ cough/dysuria/diarrhea/vomiting/. - Past Medical History Cardiovascular: Yes: HTN, Hyperlipdemia Gastrointestinal: Yes: Other (chronic conspitation, nausea) Renal/: Yes: UTI ...: No Heme/Onc: Yes: Cancer (Breast cancer) Infectious Disease: Yes: Other (Recurrent UTI) Endocrine: Yes: Diabetes Mellitus - Past Surgical History Past Surgical History: Yes: Mastectomy - Smoking History Smoking history: Never smoked Have you smoked in the past 12 months: No Aproximately how many cigarettes per day: 0 - Alcohol/Substance Use Hx Alcohol Use: No History of Substance Use: reports: None - Social History ADL: Family Assistance History of Recent Travel: No Home Medications - Allergies Allergies/Adverse Reactions: Allergies Allergy/AdvReac Type Severity Reaction Status Date / Time No Known Drug Allergies Allergy Verified 01/12/17 23:48 - Home Medications Home Medications: Ambulatory Orders Aspirin [Aspirin EC] 81 mg PO DAILY 11/23/16 Insulin Degludec [Tresiba Flextouch U-100] 12 unit SQ AM 11/23/16 Losartan Potassium 25 mg PO DAILY 11/23/16 Metformin HCl 500 mg PO BID 11/23/16 Metoprolol Succinate [Toprol Xl] 50 mg PO DAILY 11/23/16 Tamoxifen Citrate 20 mg PO DAILY 11/23/16 Atorvastatin Ca [Lipitor] 40 mg PO DAILY 11/24/16 Lubiprostone [Amitiza] 8 mcg PO BID 01/13/17 Nitrofurantoin Monohyd/M-Cryst [Nitrofurantoin Lawrence-Mcr 100 mg] 100 mg PO Q2D MDD every other day 01/13/17 Family Disease History - Family Disease History Family History: Unremarkable Review of Systems - Review of Systems Constitutional: reports: Fever, Loss of Appetite, Malaise, Weakness Eyes: reports: No Symptoms HENT: reports: No Symptoms Neck: reports: No Symptoms Cardiovascular: reports: No Symptoms Respiratory: reports: No Symptoms Gastrointestinal: reports: Nausea Genitourinary: reports: No Symptoms Physical Examination Vital Signs: Vital Signs Temperature 98.8 F 01/13/17 18:00 Pulse Rate 89 01/13/17 18:27 Respiratory Rate 20 01/13/17 18:27 Blood Pressure 143/93 01/13/17 18:27 O2 Sat by Pulse Oximetry (%) 93 L 01/13/17 10:31 Constitutional: Yes: No Distress Eyes: Yes: WNL HENT: Yes: WNL Neck: Yes: WNL, Supple Cardiovascular: Yes: WNL, Regular Rate and Rhythm Respiratory: Yes: WNL, Regular, CTA Bilaterally Gastrointestinal: Yes: WNL, Normal Bowel Sounds, Soft Musculoskeletal: Yes: WNL Extremities: Yes: WNL Edema: No Neurological: Yes: WNL, Alert, Oriented ...Motor Strength: WNL Problem List - Problems (1) Sepsis Assessment/Plan: No source of infection at this time Follow cultures Pt does have h/o recurrent UTI's Cont broad sprectrum IV antibxs(zosyn/vanco) ID consult Cont IVF Monitor lactic acid level/Wbc Code(s): A41.9 - SEPSIS, UNSPECIFIED ORGANISM (2) Lactate blood increase Assessment/Plan: Due to sepsis Monitor cultures Repeat lactic acid Cont IVF/IV antibxs Code(s): R79.89 - OTHER SPECIFIED ABNORMAL FINDINGS OF BLOOD CHEMISTRY (3) Leukocytosis (leucocytosis) Assessment/Plan: Due to sepsis Cont to monitor WBC Code(s): D72.829 - ELEVATED WHITE BLOOD CELL COUNT, UNSPECIFIED (4) Uncontrolled diabetes mellitus Assessment/Plan: Cont sliding scale w/ coverage Uncontrolled probably due to sepsis Cont IVF Code(s): E11.65 - TYPE 2 DIABETES MELLITUS WITH HYPERGLYCEMIA (5) HTN (hypertension) Assessment/Plan: Cont meds However if BP decreases due to sepsis may need to hold antihypertensives Code(s): I10 - ESSENTIAL (PRIMARY) HYPERTENSION (6) HLD (hyperlipidemia) Assessment/Plan: Cont lipitor Code(s): E78.5 - HYPERLIPIDEMIA, UNSPECIFIED (7) History of breast cancer in female Assessment/Plan: Cont tamoxifen Code(s): Z85.3 - PERSONAL HISTORY OF MALIGNANT NEOPLASM OF BREAST (8) Weakness Code(s): R53.1 - WEAKNESS
[2017-01-13] MEDS: ATORVASTATIN CA 40 MG TABLET (FP) PO SCH (21:41)
[2017-01-13] MEDS: (Lubiprostone [Amitiza] 8 MCG) PO SCH (21:42)
[2017-01-14] MEDS: SODIUM CHLORIDE 0.45% 1,000 ML IV SCH (03:01)
[2017-01-14] MEDS: PIPERACILLIN/TAZOB 3.375 GM 3.375 GM in DEXTROSE 5%-WATER - 50 ML IVPB SCH ×3 (03:01→18:23)
[2017-01-14] MEDS: VANCOMYCIN 1 GRAM (PRE-DOCKED) 250 ML IVPB SCH ×2 (04:39→15:25)
[2017-01-14] MEDS: metFORMIN HCL 500 MG TABLET (FP) PO SCH ×2 (06:41→17:01)
[2017-01-14] MEDS: INSULIN SLIDING SCALE (NOVOLOG) 1 VIAL SQ SCH ×4 (06:41→21:46)
[2017-01-14 07:50] LABS: BASOPHIL 0.4 % (0-2.0); EOSINOPHIL 8.5 % (0-4.5); MCH 30.4 pg (25.7-33.7); MCHC 33.3 g/dl (32.0-36.0); MEAN CELL VOLUME 91.2 fl (80-96); MEAN PLT VOLUME 8.5 fl (7.5-11.1); NEUTROPHILS 79.6 % (42.8-82.8); PLATELET COUNT 213 K/MM3 (134-434); RDW 13.6 % (11.6-15.6); WHITE BLOOD COUNT 6.7 K/mm3 (4.0-10.0)
[2017-01-14 08:26] LABS: CALCIUM 8.2 mg/dL (8.5-10.1)
[2017-01-14 08:32] LABS: ALBUMIN 2.8 g/dl (3.4-5.0); ALK PHOS 53 U/L (45-117); ANION GAP 9 (8-16); BILIRUBIN,TOTAL 0.8 mg/dL (0.2-1.0); CO2 27 mmol/L (21-32); GLUCOSE,RANDOM 170 mg/dL (74-106); SGOT/AST 18 U/L (15-37); SGPT/ALT 23 U/L (12-78)
[2017-01-14] MEDS ORDERED: PIPERACILLIN/TAZOBACTAM 3.375 GM VIAL IVPB ONE ×2 (10:50→18:03)
[2017-01-14] MEDS ORDERED: DEXTROSE 5%-WATER - 50 ML IVPB ONE ×2 (10:51→18:03)
[2017-01-14] MEDS: ASPIRIN COATED 81 MG TABLET.EC PO SCH (10:52)
[2017-01-14] MEDS ORDERED: INSULIN (NOVOLOG) ASPART 100 UNITS/ML 10ML VIAL ONE (11:12)
[2017-01-14] MEDS: (Lubiprostone [Amitiza] 8 MCG) PO SCH ×2 (11:51→21:46)
[2017-01-14] MEDS: METOPROLOL SUCCINATE 50 MG TAB.SR.24H (FP) PO SCH (12:32)
--- NOTE | 2017-01-14 15:19 | PN ---
Progress Note, Physician History of Present Illness: Pt feels much better today. Feeling less weak. Denies dysuria, cough/shortness of breath, abd pain/n/v/d. - Current Medication List Current Medications: Active Medications Acetaminophen (Tylenol -) 650 mg PO Q6H PRN PRN Reason: FEVER OR PAIN Last Admin: 01/13/17 19:53 Dose: 650 mg Aspirin (Ecotrin -) 81 mg PO DAILY [facility] Last Admin: 01/14/17 10:52 Dose: 81 mg Atorvastatin Calcium (Lipitor -) 40 mg PO HS [facility] Last Admin: 01/13/17 21:41 Dose: 40 mg Vancomycin HCl (Vancomycin (Pre-Docked)) 250 mls @ 250 mls/hr IVPB BID@0400, 1600 [facility]IS PRN Reason: Protocol Last Admin: 01/14/17 04:39 Dose: 250 mls/hr Piperacillin Sod/Tazobactam (Sod 3.375 gm/ Dextrose) 50 mls @ 100 mls/hr IVPB Q8H-IV ARIS PRN Reason: Protocol Last Admin: 01/14/17 10:53 Dose: 100 mls/hr Sodium Chloride (1/2 Normal Saline) 1,000 mls @ 75 mls/hr IV ASDIR [facility] Last Admin: 01/14/17 03:01 Dose: 75 mls/hr Insulin Aspart (Novolog Vial Sliding Scale -) 1 vial SQ ACHS [facility]IS PRN Reason: Protocol Last Admin: 01/14/17 11:43 Dose: 4 units Metformin HCl (Glucophage -) 500 mg PO BIDAC [facility] Last Admin: 01/14/17 06:41 Dose: 500 mg Metoprolol Succinate (Toprol Xl -) 50 mg PO DAILY [facility] Last Admin: 01/14/17 12:32 Dose: Not Given (Lubiprostone [ (Amitiza] 8 Mcg)) 8 mcg PO BID [facility] Last Admin: 01/14/17 11:51 Dose: 8 mcg - Objective Vital Signs: Vital Signs Temperature 99.4 F 01/14/17 09:30 Pulse Rate 78 01/14/17 11:02 Respiratory Rate 20 01/14/17 11:02 Blood Pressure 98/50 01/14/17 11:02 O2 Sat by Pulse Oximetry (%) 94 L 01/14/17 09:00 Constitutional: Yes: No Distress, Calm Cardiovascular: Yes: Regular Rate and Rhythm Respiratory: Yes: CTA Bilaterally Gastrointestinal: Yes: Normal Bowel Sounds, Soft Genitourinary: Yes: Other (no suprapubic/CVA tenderness) Extremities: Yes: WNL Integumentary: Yes: WNL Neurological: Yes: Alert, Oriented Labs: CBC, BMP 01/14/17 07:00 01/14/17 07:00 Microbiology 01/13/17 00:50 Urine Culture - Final Urine - Urine Clean Catch Contaminated: Please Repeat 01/13/17 01:05 Blood Culture - Preliminary Blood - Peripheral Venous NO GROWTH OBTAINED AFTER 24 HOURS, INCUBATION TO CONTINUE FOR 4 DAYS. 01/13/17 01:05 Blood Culture - Preliminary Blood - Peripheral Venous NO GROWTH OBTAINED AFTER 24 HOURS, INCUBATION TO CONTINUE FOR 4 DAYS. Problem List - Problems (1) Lactate blood increase Code(s): R79.89 - OTHER SPECIFIED ABNORMAL FINDINGS OF BLOOD CHEMISTRY (2) Leukocytosis (leucocytosis) Code(s): D72.829 - ELEVATED WHITE BLOOD CELL COUNT, UNSPECIFIED (3) Generalized muscle weakness Code(s): M62.81 - MUSCLE WEAKNESS (GENERALIZED) (4) History of breast cancer in female Code(s): Z85.3 - PERSONAL HISTORY OF MALIGNANT NEOPLASM OF BREAST (5) Sepsis Code(s): A41.9 - SEPSIS, UNSPECIFIED ORGANISM (6) Uncontrolled diabetes mellitus Code(s): E11.65 - TYPE 2 DIABETES MELLITUS WITH HYPERGLYCEMIA (7) Urinary tract infection Code(s): N39.0 - URINARY TRACT INFECTION, SITE NOT SPECIFIED Assessment/Plan Pt clinically improving wbc now normal, afebrile repeat Urine culture cont current antibiotics for now, deescalate if continues to improve monitor renal function
[2017-01-14] MEDS: ATORVASTATIN CA 40 MG TABLET (FP) PO SCH (21:45)
--- NOTE | 2017-01-14 23:04 | PN ---
Progress Note, Physician History of Present Illness: Pt having episodes of hypotension Pt's family states that rt breast implant seems to have gotten smaller? - Current Medication List Current Medications: Active Medications Acetaminophen (Tylenol -) 650 mg PO Q6H PRN PRN Reason: FEVER OR PAIN Last Admin: 01/13/17 19:53 Dose: 650 mg Aspirin (Ecotrin -) 81 mg PO DAILY [facility] Last Admin: 01/14/17 10:52 Dose: 81 mg Atorvastatin Calcium (Lipitor -) 40 mg PO HS [facility] Last Admin: 01/14/17 21:45 Dose: 40 mg Vancomycin HCl (Vancomycin (Pre-Docked)) 250 mls @ 250 mls/hr IVPB BID@0400, 1600 ARIS PRN Reason: Protocol Last Admin: 01/14/17 15:25 Dose: 250 mls/hr Piperacillin Sod/Tazobactam (Sod 3.375 gm/ Dextrose) 50 mls @ 100 mls/hr IVPB Q8H-IV ARIS PRN Reason: Protocol Last Admin: 01/14/17 18:23 Dose: 100 mls/hr Sodium Chloride (1/2 Normal Saline) 1,000 mls @ 75 mls/hr IV ASDIR [facility] Last Admin: 01/14/17 03:01 Dose: 75 mls/hr Insulin Aspart (Novolog Vial Sliding Scale -) 1 vial SQ ACHS [facility]IS PRN Reason: Protocol Last Admin: 01/14/17 21:46 Dose: 2 units Metformin HCl (Glucophage -) 500 mg PO BIDAC [facility] Last Admin: 01/14/17 17:01 Dose: 500 mg Metoprolol Succinate (Toprol Xl -) 50 mg PO DAILY [facility] Last Admin: 01/14/17 12:32 Dose: Not Given (Lubiprostone [ (Amitiza] 8 Mcg)) 8 mcg PO BID [facility] Last Admin: 01/14/17 21:46 Dose: 8 mcg - Objective Vital Signs: Vital Signs Temperature 99.3 F 01/14/17 18:05 Pulse Rate 84 01/14/17 18:05 Respiratory Rate 20 01/14/17 18:05 Blood Pressure 117/67 01/14/17 18:05 O2 Sat by Pulse Oximetry (%) 94 L 01/14/17 09:00 Constitutional: Yes: No Distress HENT: Yes: WNL Neck: Yes: WNL, Supple Cardiovascular: Yes: WNL, Regular Rate and Rhythm Respiratory: Yes: WNL, Regular, CTA Bilaterally Gastrointestinal: Yes: WNL, Normal Bowel Sounds, Soft Extremities: Yes: WNL Edema: No Labs: CBC, BMP 01/14/17 07:00 01/14/17 07:00 Problem List - Problems (1) Sepsis Assessment/Plan: No source of infection at this time Follow cultures Pt does have h/o recurrent UTI's Cont broad sprectrum IV antibxs(zosyn/vanco) Cont IVF Lactic acid went back to normal Check MRI Rt breast Code(s): A41.9 - SEPSIS, UNSPECIFIED ORGANISM (2) Lactate blood increase Assessment/Plan: Due to sepsis Monitor cultures Repeat lactic acid was normal Cont IVF/IV antibxs Code(s): R79.89 - OTHER SPECIFIED ABNORMAL FINDINGS OF BLOOD CHEMISTRY (3) Leukocytosis (leucocytosis) Assessment/Plan: Due to sepsis WBC went back to normal Code(s): D72.829 - ELEVATED WHITE BLOOD CELL COUNT, UNSPECIFIED (4) Uncontrolled diabetes mellitus Assessment/Plan: Cont sliding scale w/ coverage Uncontrolled probably due to sepsis Cont IVF Code(s): E11.65 - TYPE 2 DIABETES MELLITUS WITH HYPERGLYCEMIA (5) HTN (hypertension) Assessment/Plan: Will hold toprol due to hypotension Code(s): I10 - ESSENTIAL (PRIMARY) HYPERTENSION (6) HLD (hyperlipidemia) Assessment/Plan: Cont lipitor Code(s): E78.5 - HYPERLIPIDEMIA, UNSPECIFIED (7) History of breast cancer in female Code(s): Z85.3 - PERSONAL HISTORY OF MALIGNANT NEOPLASM OF BREAST (8) Weakness Code(s): R53.1 - WEAKNESS
[2017-01-15] MEDS ORDERED: PIPERACILLIN/TAZOBACTAM 3.375 GM VIAL IVPB ONE ×3 (01:17→17:22)
[2017-01-15] MEDS ORDERED: DEXTROSE 5%-WATER - 50 ML IVPB ONE ×3 (01:17→17:23)
[2017-01-15] MEDS: SODIUM CHLORIDE 0.45% 1,000 ML IV SCH ×2 (01:24→21:14)
[2017-01-15] MEDS: PIPERACILLIN/TAZOB 3.375 GM 3.375 GM in DEXTROSE 5%-WATER - 50 ML IVPB SCH ×3 (01:25→17:56)
[2017-01-15] MEDS: VANCOMYCIN 1 GRAM (PRE-DOCKED) 250 ML IVPB SCH (03:42)
[2017-01-15] MEDS: metFORMIN HCL 500 MG TABLET (FP) PO SCH ×2 (06:36→17:55)
[2017-01-15] MEDS: INSULIN SLIDING SCALE (NOVOLOG) 1 VIAL SQ SCH ×4 (06:40→21:24)
[2017-01-15 07:05] LABS: BASOPHIL 0.7 % (0-2.0); EOSINOPHIL 10.6 % (0-4.5); MCH 30.4 pg (25.7-33.7); MCHC 33.7 g/dl (32.0-36.0); MEAN CELL VOLUME 90.1 fl (80-96); MEAN PLT VOLUME 8.5 fl (7.5-11.1); NEUTROPHILS 59.6 % (42.8-82.8); PLATELET COUNT 194 K/MM3 (134-434); RDW 13.1 % (11.6-15.6); WHITE BLOOD COUNT 5.6 K/mm3 (4.0-10.0)
[2017-01-15 07:38] LABS: ALBUMIN 2.7 g/dl (3.4-5.0); ANION GAP 10 (8-16); CALCIUM 8.4 mg/dL (8.5-10.1); CO2 26 mmol/L (21-32); GLUCOSE,RANDOM 145 mg/dL (74-106); SGOT/AST 13 U/L (15-37)
[2017-01-15 07:40] LABS: ALK PHOS 45 U/L (45-117); BILIRUBIN,TOTAL 0.5 mg/dL (0.2-1.0); CREATININE 0.9 mg/dL (0.55-1.02); SGPT/ALT 19 U/L (12-78); TOT PROT 5.8 g/dl (6.4-8.2)
[2017-01-15] MEDS: ASPIRIN COATED 81 MG TABLET.EC PO SCH (10:09)
[2017-01-15] MEDS: (Lubiprostone [Amitiza] 8 MCG) PO SCH ×2 (10:09→21:27)
--- NOTE | 2017-01-15 15:46 | PN ---
Progress Note, Physician History of Present Illness: patient doing well feels much better no complaints - Current Medication List Current Medications: Active Medications Acetaminophen (Tylenol -) 650 mg PO Q6H PRN PRN Reason: FEVER OR PAIN Last Admin: 01/13/17 19:53 Dose: 650 mg Aspirin (Ecotrin -) 81 mg PO DAILY [facility] Last Admin: 01/15/17 10:09 Dose: 81 mg Atorvastatin Calcium (Lipitor -) 40 mg PO HS [facility] [place] Last Admin: 01/14/17 21:45 Dose: 40 mg Piperacillin Sod/Tazobactam (Sod 3.375 gm/ Dextrose) 50 mls @ 100 mls/hr IVPB Q8H-IV [facility]IS PRN Reason: Protocol Last Admin: 01/15/17 10:09 Dose: 100 mls/hr Sodium Chloride (1/2 Normal Saline) 1,000 mls @ 75 mls/hr IV ASDIR [facility] [place] Last Admin: 01/15/17 01:24 Dose: 75 mls/hr Insulin Aspart (Novolog Vial Sliding Scale -) 1 vial SQ ACHS [facility] [place] PRN Reason: Protocol Last Admin: 01/15/17 12:06 Dose: 4 units Metformin HCl (Glucophage -) 500 mg PO BIDAC [facility] [place] Last Admin: 01/15/17 06:36 Dose: 500 mg (Lubiprostone [ (Amitiza] 8 Mcg)) 8 mcg PO BID [facility] [place] Last Admin: 01/15/17 10:09 Dose: 8 mcg - Objective Vital Signs: Vital Signs Temperature 99.3 F 01/15/17 14:38 Pulse Rate 90 01/15/17 14:38 Respiratory Rate 20 01/15/17 14:38 Blood Pressure 140/65 01/15/17 14:38 O2 Sat by Pulse Oximetry (%) 96 01/14/17 22:00 Constitutional: Yes: No Distress, Calm Cardiovascular: Yes: Regular Rate and Rhythm Respiratory: Yes: Regular, CTA Bilaterally Gastrointestinal: Yes: Normal Bowel Sounds, Soft Musculoskeletal: Yes: WNL Extremities: Yes: WNL Neurological: Yes: Alert, Oriented Psychiatric: Yes: Alert, Oriented Labs: CBC, BMP 01/15/17 06:40 01/15/17 06:40 Assessment/Plan Problem List - Problems (1) Lactate blood increase Code(s): R79.89 - OTHER SPECIFIED ABNORMAL FINDINGS OF BLOOD CHEMISTRY (2) Leukocytosis (leucocytosis) Code(s): D72.829 - ELEVATED WHITE BLOOD CELL COUNT, UNSPECIFIED (3) Generalized muscle weakness Code(s): M62.81 - MUSCLE WEAKNESS (GENERALIZED) (4) History of breast cancer in female Code(s): Z85.3 - PERSONAL HISTORY OF MALIGNANT NEOPLASM OF BREAST (5) Sepsis Code(s): A41.9 - SEPSIS, UNSPECIFIED ORGANISM (6) Uncontrolled diabetes mellitus Code(s): E11.65 - TYPE 2 DIABETES MELLITUS WITH HYPERGLYCEMIA (7) Urinary tract infection Code(s): N39.0 - URINARY TRACT INFECTION, SITE NOT SPECIFIED plan patient doing well no issues await for cx to come back rest continue current mgmt stopped vanco continue zosyn
--- NOTE | 2017-01-15 16:55 | EKG ---
Test Reason : Blood Pressure : / mmHG Vent. Rate : 093 BPM Atrial Rate : 093 BPM P-R Int : 156 ms QRS Dur : 118 ms QT Int : 394 ms P-R-T Axes : 036 -13 086 degrees QTc Int : 489 ms NORMAL SINUS RHYTHM LOW VOLTAGE QRS LEFT BUNDLE BRANCH BLOCK ABNORMAL ECG WHEN COMPARED WITH ECG OF 07-NOV-2016 21:32, NO SIGNIFICANT CHANGE WAS FOUND Confirmed by DEIDRE DOMINGUEZ MD ([id number]) on 01/15/2017 4:54:52 PM Referred By: Confirmed By:DEIDRE DOMINGUEZ MD
[2017-01-15] MEDS ORDERED: PT OWN MED DRAWER 7, Y5N ONE (20:44)
[2017-01-15] MEDS: ATORVASTATIN CA 40 MG TABLET (FP) PO SCH (21:26)
--- NOTE | 2017-01-15 23:22 | PN ---
Progress Note, Physician History of Present Illness: Spoke to pt and daughter and will need to get MRI breast as outpt - Current Medication List Current Medications: Active Medications Acetaminophen (Tylenol -) 650 mg PO Q6H PRN PRN Reason: FEVER OR PAIN Last Admin: 01/13/17 19:53 Dose: 650 mg Aspirin (Ecotrin -) 81 mg PO DAILY [facility] Last Admin: 01/15/17 10:09 Dose: 81 mg Atorvastatin Calcium (Lipitor -) 40 mg PO HS [facility] Last Admin: 01/15/17 21:26 Dose: 40 mg Piperacillin Sod/Tazobactam (Sod 3.375 gm/ Dextrose) 50 mls @ 100 mls/hr IVPB Q8H-IV [facility] PRN Reason: Protocol Last Admin: 01/15/17 17:56 Dose: 100 mls/hr Sodium Chloride (1/2 Normal Saline) 1,000 mls @ 75 mls/hr IV ASDIR [facility] Last Admin: 01/15/17 21:14 Dose: 75 mls/hr Insulin Aspart (Novolog Vial Sliding Scale -) 1 vial SQ ACHS [facility] PRN Reason: Protocol Last Admin: 01/15/17 21:24 Dose: Not Given Metformin HCl (Glucophage -) 500 mg PO BIDAC [facility] Last Admin: 01/15/17 17:55 Dose: 500 mg (Lubiprostone [ (Amitiza] 8 Mcg)) 8 mcg PO BID [facility] Last Admin: 01/15/17 21:27 Dose: 8 mcg - Objective Vital Signs: Vital Signs Temperature 98.4 F 01/15/17 18:25 Pulse Rate 82 01/15/17 18:25 Respiratory Rate 18 01/15/17 18:25 Blood Pressure 137/60 01/15/17 18:25 O2 Sat by Pulse Oximetry (%) 97 01/15/17 09:00 Constitutional: Yes: No Distress Neck: Yes: WNL, Supple Cardiovascular: Yes: WNL Respiratory: Yes: WNL, Regular, CTA Bilaterally Gastrointestinal: Yes: WNL, Normal Bowel Sounds, Soft Edema: No Labs: CBC, BMP 01/15/17 06:40 01/15/17 06:40 Problem List - Problems (1) Sepsis Assessment/Plan: No source of infection at this time Repeat urine culture is pending Pt remains afebrile and WBC is normal Pt now on just IV vanco Antibxs as per ID Code(s): A41.9 - SEPSIS, UNSPECIFIED ORGANISM (2) Lactate blood increase Assessment/Plan: Due to sepsis Monitor cultures Repeat lactic acid was normal Cont IV vanco Code(s): R79.89 - OTHER SPECIFIED ABNORMAL FINDINGS OF BLOOD CHEMISTRY (3) Leukocytosis (leucocytosis) Assessment/Plan: Due to sepsis WBC went back to normal Code(s): D72.829 - ELEVATED WHITE BLOOD CELL COUNT, UNSPECIFIED (4) Uncontrolled diabetes mellitus Assessment/Plan: Cont sliding scale w/ coverage Uncontrolled probably due to sepsis DC IVF Code(s): E11.65 - TYPE 2 DIABETES MELLITUS WITH HYPERGLYCEMIA (5) HTN (hypertension) Assessment/Plan: BP improving May need to restart antihypertensives Code(s): I10 - ESSENTIAL (PRIMARY) HYPERTENSION (6) HLD (hyperlipidemia) Assessment/Plan: Cont lipitor Code(s): E78.5 - HYPERLIPIDEMIA, UNSPECIFIED (7) History of breast cancer in female Assessment/Plan: Cont tamoxifen Code(s): Z85.3 - PERSONAL HISTORY OF MALIGNANT NEOPLASM OF BREAST (8) Weakness Code(s): R53.1 - WEAKNESS
[2017-01-16] MEDS ORDERED: DEXTROSE 5%-WATER - 50 ML IVPB ONE ×2 (01:07→11:37)
[2017-01-16] MEDS ORDERED: PIPERACILLIN/TAZOBACTAM 3.375 GM VIAL IVPB ONE ×2 (01:07→11:36)
[2017-01-16] MEDS: PIPERACILLIN/TAZOB 3.375 GM 3.375 GM in DEXTROSE 5%-WATER - 50 ML IVPB SCH ×2 (01:26→11:00)
[2017-01-16] MEDS: SODIUM CHLORIDE 0.45% 1,000 ML IV SCH ×2 (06:42→17:07)
[2017-01-16] MEDS: metFORMIN HCL 500 MG TABLET (FP) PO SCH ×2 (06:42→17:06)
[2017-01-16] MEDS: INSULIN SLIDING SCALE (NOVOLOG) 1 VIAL SQ SCH ×4 (06:46→21:59)
[2017-01-16] MEDS: (Lubiprostone [Amitiza] 8 MCG) PO SCH ×2 (11:00→21:42)
[2017-01-16] MEDS: ASPIRIN COATED 81 MG TABLET.EC PO SCH (11:00)
[2017-01-16] MEDS ORDERED: INSULIN (NOVOLOG) ASPART 100 UNITS/ML 10ML VIAL ONE (11:36)
--- NOTE | 2017-01-16 14:32 | PN ---
Progress Note, Physician History of Present Illness: patient doing well no issues - Current Medication List Current Medications: Active Medications Acetaminophen (Tylenol -) 650 mg PO Q6H PRN PRN Reason: FEVER OR PAIN Last Admin: 01/13/17 19:53 Dose: 650 mg Aspirin (Ecotrin -) 81 mg PO DAILY [facility] Last Admin: 01/16/17 11:00 Dose: 81 mg Atorvastatin Calcium (Lipitor -) 40 mg PO HS [facility] Last Admin: 01/15/17 21:26 Dose: 40 mg Sodium Chloride (1/2 Normal Saline) 1,000 mls @ 75 mls/hr IV ASDIR [facility] Last Admin: 01/16/17 06:42 Dose: Not Given Insulin Aspart (Novolog Vial Sliding Scale -) 1 vial SQ ACHS [facility] PRN Reason: Protocol Last Admin: 01/16/17 11:47 Dose: 2 units Metformin HCl (Glucophage -) 500 mg PO BIDAC [facility] Last Admin: 01/16/17 06:42 Dose: 500 mg (Lubiprostone [ (Amitiza] 8 Mcg)) 8 mcg PO BID [facility] Last Admin: 01/16/17 11:00 Dose: 8 mcg - Objective Vital Signs: Vital Signs Temperature 98.1 F 01/16/17 10:10 Pulse Rate 79 01/16/17 10:10 Respiratory Rate 18 01/16/17 10:10 Blood Pressure 136/56 01/16/17 10:10 O2 Sat by Pulse Oximetry (%) 98 01/15/17 22:00 Constitutional: Yes: No Distress, Calm Cardiovascular: Yes: Regular Rate and Rhythm Respiratory: Yes: Regular, CTA Bilaterally Gastrointestinal: Yes: Normal Bowel Sounds, Soft Musculoskeletal: Yes: WNL Extremities: Yes: WNL Neurological: Yes: Alert, Oriented Psychiatric: Yes: Alert, Oriented Labs: CBC, BMP 01/15/17 06:40 01/15/17 06:40 Assessment/Plan Problem List - Problems (1) Lactate blood increase Code(s): R79.89 - OTHER SPECIFIED ABNORMAL FINDINGS OF BLOOD CHEMISTRY (2) Leukocytosis (leucocytosis) Code(s): D72.829 - ELEVATED WHITE BLOOD CELL COUNT, UNSPECIFIED (3) Generalized muscle weakness Code(s): M62.81 - MUSCLE WEAKNESS (GENERALIZED) (4) History of breast cancer in female Code(s): Z85.3 - PERSONAL HISTORY OF MALIGNANT NEOPLASM OF BREAST (5) Sepsis Code(s): A41.9 - SEPSIS, UNSPECIFIED ORGANISM (6) Uncontrolled diabetes mellitus Code(s): E11.65 - TYPE 2 DIABETES MELLITUS WITH HYPERGLYCEMIA (7) Urinary tract infection Code(s): N39.0 - URINARY TRACT INFECTION, SITE NOT SPECIFIED plan patient doing well no issues repeat cx negative will stop all abx
--- NOTE | 2017-01-16 18:19 | PN ---
Progress Note, Physician History of Present Illness: STABLE - Current Medication List Current Medications: Active Medications Acetaminophen (Tylenol -) 650 mg PO Q6H PRN PRN Reason: FEVER OR PAIN Last Admin: 01/13/17 19:53 Dose: 650 mg Aspirin (Ecotrin -) 81 mg PO DAILY [facility] Last Admin: 01/16/17 11:00 Dose: 81 mg Atorvastatin Calcium (Lipitor -) 40 mg PO HS [facility] Last Admin: 01/15/17 21:26 Dose: 40 mg Sodium Chloride (1/2 Normal Saline) 1,000 mls @ 75 mls/hr IV ASDIR [facility] Last Admin: 01/16/17 17:07 Dose: 75 mls/hr Insulin Aspart (Novolog Vial Sliding Scale -) 1 vial SQ ACHS [facility] PRN Reason: Protocol Last Admin: 01/16/17 17:06 Dose: 2 units Metformin HCl (Glucophage -) 500 mg PO BIDAC [facility] Last Admin: 01/16/17 17:06 Dose: 500 mg (Lubiprostone [ (Amitiza] 8 Mcg)) 8 mcg PO BID [facility] Last Admin: 01/16/17 11:00 Dose: 8 mcg - Objective Vital Signs: Vital Signs Temperature 98.9 F 01/16/17 18:00 Pulse Rate 87 01/16/17 18:00 Respiratory Rate 20 01/16/17 18:00 Blood Pressure 141/62 01/16/17 18:00 O2 Sat by Pulse Oximetry (%) 98 01/15/17 22:00 Constitutional: Yes: No Distress HENT: Yes: Atraumatic Neck: Yes: Supple Cardiovascular: Yes: Regular Rate and Rhythm Respiratory: Yes: CTA Bilaterally Gastrointestinal: Yes: Normal Bowel Sounds Extremities: Yes: WNL Edema: No Neurological: Yes: Alert, Oriented Labs: CBC, BMP 01/15/17 06:40 01/15/17 06:40 Problem List - Problems (1) HLD (hyperlipidemia) Code(s): E78.5 - HYPERLIPIDEMIA, UNSPECIFIED (2) HTN (hypertension) Assessment/Plan: WILL START HER HOME MED Code(s): I10 - ESSENTIAL (PRIMARY) HYPERTENSION (3) Sepsis Assessment/Plan: ON ABX CXS NEGATIVE Code(s): A41.9 - SEPSIS, UNSPECIFIED ORGANISM
[2017-01-16] MEDS: METOPROLOL SUCCINATE 25 MG TAB.SR.24H (FP) PO SCH (19:38)
[2017-01-16] MEDS: ATORVASTATIN CA 40 MG TABLET (FP) PO SCH (21:42)
[2017-01-17] MEDS: INSULIN SLIDING SCALE (NOVOLOG) 1 VIAL SQ SCH ×4 (06:14→22:31)
[2017-01-17] MEDS: metFORMIN HCL 500 MG TABLET (FP) PO SCH ×2 (06:14→18:34)
[2017-01-17] MEDS ORDERED: PT OWN MED DRAWER 7, Y5N ONE (08:40)
[2017-01-17] MEDS: ASPIRIN COATED 81 MG TABLET.EC PO SCH (11:00)
[2017-01-17] MEDS: METOPROLOL SUCCINATE 25 MG TAB.SR.24H (FP) PO SCH (11:00)
[2017-01-17] MEDS: ACETAMINOPHEN 325 MG TABLET (FP) PO PRN (11:54)
[2017-01-17] MEDS: (Lubiprostone [Amitiza] 8 MCG) PO SCH ×2 (13:59→22:31)
--- NOTE | 2017-01-17 15:55 | PN ---
Progress Note, Physician History of Present Illness: was complaining of hip pain had low grade fever - Current Medication List Current Medications: Active Medications Acetaminophen (Tylenol -) 650 mg PO Q6H PRN PRN Reason: FEVER OR PAIN Last Admin: 01/17/17 11:54 Dose: 650 mg Aspirin (Ecotrin -) 81 mg PO DAILY [facility] Last Admin: 01/17/17 11:00 Dose: 81 mg Atorvastatin Calcium (Lipitor -) 40 mg PO HS [facility] Last Admin: 01/16/17 21:42 Dose: 40 mg Insulin Aspart (Novolog Vial Sliding Scale -) 1 vial SQ ACHS [facility] PRN Reason: Protocol Last Admin: 01/17/17 12:03 Dose: 2 units Metformin HCl (Glucophage -) 500 mg PO BIDAC [facility] Last Admin: 01/17/17 06:14 Dose: 500 mg Metoprolol Succinate (Toprol Xl -) 25 mg PO DAILY [facility] Last Admin: 01/17/17 11:00 Dose: 25 mg (Lubiprostone [ (Amitiza] 8 Mcg)) 8 mcg PO BID [facility] Last Admin: 01/17/17 13:59 Dose: 8 mcg - Objective Vital Signs: Vital Signs Temperature 99.7 F H 01/17/17 14:04 Pulse Rate 84 01/17/17 14:04 Respiratory Rate 20 01/17/17 14:04 Blood Pressure 134/61 01/17/17 14:04 O2 Sat by Pulse Oximetry (%) 97 01/17/17 09:00 Constitutional: Yes: No Distress, Calm Cardiovascular: Yes: Regular Rate and Rhythm Respiratory: Yes: Regular, CTA Bilaterally Gastrointestinal: Yes: Normal Bowel Sounds, Soft Musculoskeletal: Yes: Other Extremities: Yes: Other Neurological: Yes: Alert, Oriented Psychiatric: Yes: Alert, Oriented Labs: CBC, BMP 01/15/17 06:40 01/15/17 06:40 Assessment/Plan Problem List - Problems (1) Lactate blood increase Code(s): R79.89 - OTHER SPECIFIED ABNORMAL FINDINGS OF BLOOD CHEMISTRY (2) Leukocytosis (leucocytosis) Code(s): D72.829 - ELEVATED WHITE BLOOD CELL COUNT, UNSPECIFIED (3) Generalized muscle weakness Code(s): M62.81 - MUSCLE WEAKNESS (GENERALIZED) (4) History of breast cancer in female Code(s): Z85.3 - PERSONAL HISTORY OF MALIGNANT NEOPLASM OF BREAST (5) Sepsis Code(s): A41.9 - SEPSIS, UNSPECIFIED ORGANISM (6) Uncontrolled diabetes mellitus Code(s): E11.65 - TYPE 2 DIABETES MELLITUS WITH HYPERGLYCEMIA (7) Urinary tract infection Code(s): N39.0 - URINARY TRACT INFECTION, SITE NOT SPECIFIED 8 hip pain plan stable await for the xray report
--- NOTE | 2017-01-17 19:53 | PN ---
Progress Note, Physician History of Present Illness: Pt c/o lt hip pain - Current Medication List Current Medications: Active Medications Acetaminophen (Tylenol -) 650 mg PO Q6H PRN PRN Reason: FEVER OR PAIN Last Admin: 01/17/17 11:54 Dose: 650 mg Aspirin (Ecotrin -) 81 mg PO DAILY [facility] Last Admin: 01/17/17 11:00 Dose: 81 mg Atorvastatin Calcium (Lipitor -) 40 mg PO HS [facility] Last Admin: 01/16/17 21:42 Dose: 40 mg Insulin Aspart (Novolog Vial Sliding Scale -) 1 vial SQ ACHS [facility] PRN Reason: Protocol Last Admin: 01/17/17 18:32 Dose: 4 units Metformin HCl (Glucophage -) 500 mg PO BIDAC [facility] Last Admin: 01/17/17 18:34 Dose: 500 mg Metoprolol Succinate (Toprol Xl -) 25 mg PO DAILY [facility] Last Admin: 01/17/17 11:00 Dose: 25 mg (Lubiprostone [ (Amitiza] 8 Mcg)) 8 mcg PO BID [facility] Last Admin: 01/17/17 13:59 Dose: 8 mcg - Objective Vital Signs: Vital Signs Temperature 99.3 F 01/17/17 18:00 Pulse Rate 90 01/17/17 18:00 Respiratory Rate 20 01/17/17 18:00 Blood Pressure 119/58 01/17/17 18:00 O2 Sat by Pulse Oximetry (%) 97 01/17/17 09:00 Neck: Yes: WNL, Supple Cardiovascular: Yes: WNL, Regular Rate and Rhythm Respiratory: Yes: WNL, Regular, CTA Bilaterally Gastrointestinal: Yes: WNL, Normal Bowel Sounds, Soft Musculoskeletal: Yes: Joint Stiffness Edema: No Labs: CBC, BMP 01/15/17 06:40 01/15/17 06:40 Problem List - Problems (1) Sepsis Assessment/Plan: No source of infection at this time Repeat urine culture is negative DC planning for am if pt remains afebrile Code(s): A41.9 - SEPSIS, UNSPECIFIED ORGANISM (2) Hip pain Assessment/Plan: Due to OA Code(s): M25.559 - PAIN IN UNSPECIFIED HIP (3) Lactate blood increase Assessment/Plan: Due to sepsis Resolved Code(s): R79.89 - OTHER SPECIFIED ABNORMAL FINDINGS OF BLOOD CHEMISTRY (4) Leukocytosis (leucocytosis) Assessment/Plan: Due to sepsis WBC went back to normal Code(s): D72.829 - ELEVATED WHITE BLOOD CELL COUNT, UNSPECIFIED (5) Uncontrolled diabetes mellitus Assessment/Plan: Cont sliding scale w/ coverage Code(s): E11.65 - TYPE 2 DIABETES MELLITUS WITH HYPERGLYCEMIA (6) HTN (hypertension) Code(s): I10 - ESSENTIAL (PRIMARY) HYPERTENSION (7) HLD (hyperlipidemia) Code(s): E78.5 - HYPERLIPIDEMIA, UNSPECIFIED (8) History of breast cancer in female Code(s): Z85.3 - PERSONAL HISTORY OF MALIGNANT NEOPLASM OF BREAST (9) Weakness Code(s): R53.1 - WEAKNESS
[2017-01-17] MEDS: ATORVASTATIN CA 40 MG TABLET (FP) PO SCH (22:30)
[2017-01-18] MEDS: INSULIN SLIDING SCALE (NOVOLOG) 1 VIAL SQ SCH ×2 (06:24→15:00)
[2017-01-18] MEDS: metFORMIN HCL 500 MG TABLET (FP) PO SCH (06:25)
--- NOTE | 2017-01-18 10:49 | DS ---
Physical Examination Vital Signs: Vital Signs Temperature 98.6 F 01/18/17 06:00 Pulse Rate 79 01/18/17 06:00 Respiratory Rate 20 01/18/17 06:00 Blood Pressure 114/54 01/18/17 06:00 O2 Sat by Pulse Oximetry (%) 98 01/17/17 21:00 Labs: CBC, BMP 01/15/17 06:40 01/15/17 06:40 Discharge Summary Reason For Visit: LACTIC ACIDOSIS AND WHITE COUNT WITH FEVER Current Active Problems HLD (hyperlipidemia) (Acute) HTN (hypertension) (Acute) Hip pain (Acute) Lactate blood increase (Acute) Leukocytosis (leucocytosis) (Acute) Condition: Good - Instructions Diet, Activity, Other Instructions: 2 gram sodium diet 2200 calorie ada diet See Dr Walker or Dr Denis in 1 week [phone] Referrals: José Denis MD [Primary Care Provider] - Disposition: HOME - Home Medications Comprehensive Discharge Medication List: Ambulatory Orders Aspirin [Aspirin EC] 81 mg PO DAILY 11/23/16 Insulin Degludec [Tresiba Flextouch U-100] 12 unit SQ AM 11/23/16 Losartan Potassium 25 mg PO DAILY 11/23/16 Metformin HCl 500 mg PO BID 11/23/16 Metoprolol Succinate [Toprol Xl] 50 mg PO DAILY 11/23/16 Tamoxifen Citrate 20 mg PO DAILY 11/23/16 Atorvastatin Ca [Lipitor] 40 mg PO DAILY 11/24/16 Lubiprostone [Amitiza] 8 mcg PO BID 01/13/17 Nitrofurantoin Monohyd/M-Cryst [Nitrofurantoin [place]-Mcr 100 mg] 100 mg PO Q2D MDD every other day 01/13/17 Acetaminophen [Tylenol .Regular Strength -] 650 mg PO Q6H PRN #90 tablet
[2017-01-18] MEDS: METOPROLOL SUCCINATE 25 MG TAB.SR.24H (FP) PO SCH (11:41)
[2017-01-18] MEDS: ASPIRIN COATED 81 MG TABLET.EC PO SCH (11:41)
[2017-01-18] MEDS: (Lubiprostone [Amitiza] 8 MCG) PO SCH (11:42)
[2017-01-18 12:26] VITALS: BP 116/62; PULSE 84; TEMP 98.1
== END 2017-01-18 12:57 | disposition home or self-care (01) | DRG 872 ==
LOC: JER 23:34 → JERBED 01-13 04:16 → UNDOADMIN 01-13 04:41 → JERBED 01-13 04:41 → J5S 01-13 06:32
PROVIDERS: ADMIT Internal Medicine; ATTEND Internal Medicine
DX: A41.9 Sepsis, unspecified organism (principal); E87.2 Acidosis; E11.65 Type 2 diabetes mellitus with hyperglycemia; D72.829 Elevated white blood cell count, unspecified; C50.919 Malignant neoplasm of unspecified site of unspecified female breast; E87.5 Hyperkalemia; Z91.14 Patient's other noncompliance with medication regimen; R35.0 Frequency of micturition; Z90.10 Acquired absence of unspecified breast and nipple; I10 Essential (primary) hypertension; E78.5 Hyperlipidemia, unspecified; Z79.84 Long term (current) use of oral hypoglycemic drugs; M16.12 Unilateral primary osteoarthritis, left hip
CPT/HCPCS: 36415; 71010-TC; 73523-TC; 80053; 81003; 81015; 82803; 83605; 85025; 87040; 87086; 93005; 93010; 99284-25

== ENCOUNTER 2017-01-23 22:10 | Inpatient (IN) | payer OTHER ==
[2017-01-23 22:16] VITALS: BMI 27.4
[2017-01-23] MEDS ORDERED: SODIUM CHLORIDE 0.9% 1000 ML INFUS.BAG IV STA (23:24)
[2017-01-24 00:39] LABS: MCH 29.7 pg (25.7-33.7); MCHC 32.9 g/dl (32.0-36.0); MEAN CELL VOLUME 90.3 fl (80-96); MEAN PLT VOLUME 8.7 fl (7.5-11.1); PLATELET COUNT 300 K/MM3 (134-434); RDW 13.2 % (11.6-15.6); WHITE BLOOD COUNT 27.8 K/mm3 (4.0-10.0)
[2017-01-24 00:49] LABS: INR 1.2 (0.82-1.09); PROTHROMBIN TIME (PATIENT) 13.3 SEC (9.98-11.88)
[2017-01-24 00:49] LABS: VENOUS BLOOD GAS HCO3 21.5 meq/L (19-25); VENOUS PH 7.41 (7.32-7.42)
[2017-01-24 00:52] LABS: ACTIVATED PTT 23.6 SECONDS (26.9-34.4)
[2017-01-24 01:05] LABS: ALBUMIN 3.1 g/dl (3.4-5.0); ANION GAP 12 (8-16); BILIRUBIN,TOTAL 0.2 mg/dL (0.2-1.0); CALCIUM 8.6 mg/dL (8.5-10.1); CO2 22 mmol/L (21-32); CREATININE 1.2 mg/dL (0.55-1.02); GLUCOSE,RANDOM 261 mg/dL (74-106); SGPT/ALT 18 U/L (12-78); TOT PROT 6.7 g/dl (6.4-8.2)
[2017-01-24 01:07] LABS: ALK PHOS 48 U/L (45-117); CPK 59 IU/L (26-192); TROPONIN I < 0.02 ng/ml (0.00-0.05)
[2017-01-24 01:11] LABS: SGOT/AST 14 U/L (15-37)
[2017-01-24 03:03] LABS: TOTAL CELLS COUNTED 100
[2017-01-24 03:04] LABS: PLATELET ESTIMATE ADEQUATE (NORMAL)
[2017-01-24] MEDS ORDERED: SODIUM CHLORIDE 500 ML IV STA (03:09)
[2017-01-24 03:20] LABS: URINE APPEARANCE SLCLOUDY; URINE BILIRUBIN NEGATIVE (NEGATIVE); URINE BLOOD NEGATIVE (NEGATIVE); URINE COLOR DKYELLOW; URINE GLUCOSE (UA) NEGATIVE (NEGATIVE); URINE KETONE NEGATIVE (NEGATIVE); URINE NITRITE NEGATIVE (NEGATIVE); URINE PROTEIN NEGATIVE (NEGATIVE); URINE UROBILINOGEN NEGATIVE mg/dL (0.2-1.0)
--- NOTE | 2017-01-24 03:22 | PDOC ---
History of Present Illness - General History Source: Patient Exam Limitations: No Limitations - History of Present Illness Initial Comments: 01/24/17 03:27 The patient is a 76 year old female with a significant past medical history of diabetes, recurrent UTIs, arthritis and renal insufficiency who presents to the ED with generalized weakness and fever. Patient was recently admitted for leukocytosis, blood glucose and was dc home on . As per daughter the patients other daughter on Sunday, so patient is having difficulty coping with a loss and is depressed. She reports decreased PO for the patient and difficulty getting out of the bed, which is not her baseline. She also reports a subjective fever of 100.5 F. The also report associated joint aches. Denies headache or chills. Denies nausea, vomiting, or diarrhea. Denies changes in urinary output. Denies chest pain or shortness of breath. ALL - NKA PMD: Dr. Walker <Pau Bang - Last Filed: 01/24/17 03:27> <Bisi Talamantes - Last Filed: 01/24/17 04:44> - General Chief Complaint: SIRS, Suspected/Possible Stated Complaint: WEAKNESS Time Seen by Provider: 01/23/17 22:26 Past History <Pau Bang - Last Filed: 01/24/17 03:27> - Past Medical History Anemia: No Asthma: No Cancer: Yes (Rt breast 02/08) Cardiac Disorders: No CVA: No COPD: No CHF: No Dementia: No Diabetes: Yes (1999) GI Disorders: Yes (Constipation) Disorders: No HTN: Yes Hypercholesterolemia: Yes Liver Disease: No Seizures: No Thyroid Disease: No - Surgical History Abdominal Surgery: No Appendectomy: No Cardiac Surgery: No Cholecystectomy: No Lung Surgery: No Neurologic Surgery: No Orthopedic Surgery: No - Immunization History Immunization Up to Date: No - Suicide/Smoking/Psychosocial Hx Smoking Status: No Smoking History: Never smoked Have you smoked in the past 12 months: No Number of Cigarettes Smoked Daily: 0 Information on smoking cessation initiated: No Hx Alcohol Use: No Drug/Substance Use Hx: No Substance Use Type: None Hx Substance Use Treatment: No <Bisi Talamantes - Last Filed: 01/24/17 04:44> - Past Medical History Allergies/Adverse Reactions: Allergies Allergy/AdvReac Type Severity Reaction Status Date / Time No Known Drug Allergies Allergy Verified 01/23/17 22:16 Home Medications: Ambulatory Orders Aspirin [Aspirin EC] 81 mg PO DAILY 11/23/16 Insulin Degludec [Tresiba Flextouch U-100] 12 unit SQ AM 11/23/16 Losartan Potassium 25 mg PO DAILY 11/23/16 Metformin HCl 500 mg PO BID 11/23/16 Metoprolol Succinate [Toprol Xl] 50 mg PO DAILY 11/23/16 Tamoxifen Citrate 20 mg PO DAILY 11/23/16 Atorvastatin Ca [Lipitor] 40 mg PO DAILY 11/24/16 Lubiprostone [Amitiza] 8 mcg PO BID 01/13/17 Nitrofurantoin Monohyd/M-Cryst [Nitrofurantoin [place]-Mcr 100 mg] 100 mg PO Q2D MDD every other day 01/13/17 Acetaminophen [Tylenol .Regular Strength -] 650 mg PO Q6H PRN #90 tablet Review of Systems - Review of Systems Able to Perform ROS?: Yes Comments:: 01/24/17 03:28 CONSTITUTIONAL: Present: fever, generalized weakness, loss of appetite Absent: chills, diaphoresis, malaise HEENT: Absent: rhinorrhea, nasal congestion, throat pain, throat swelling, difficulty swallowing, mouth swelling, ear pain, eye pain, visual Changes CARDIOVASCULAR: Absent: chest pain, syncope, palpitations, irregular heart rate, lightheadedness , peripheral edema RESPIRATORY: Absent: cough, shortness of breath, dyspnea with exertion, orthopnea, wheezing, stridor, hemoptysis GASTROINTESTINAL: Absent: abdominal pain, abdominal distension, nausea, vomiting, diarrhea, constipation, melena, hematochezia GENITOURINARY: Absent: dysuria, frequency, urgency, hesitancy, hematuria, flank pain, genital pain MUSCULOSKELETAL: Present: diffuse bone aches Absent: myalgia, joint swelling SKIN: Absent: rash, itching, pallor HEMATOLOGIC/IMMUNOLOGIC: Absent: easy bleeding, easy bruising, lymphadenopathy, frequent infections ENDOCRINE: Absent: unexplained weight gain, unexplained weight loss, heat intolerance, cold intolerance NEUROLOGIC: Absent: headache, focal weakness or paresthesias, dizziness, unsteady gait, seizure, mental status changes, bladder or bowel incontinence PSYCHIATRIC: Absent: anxiety, depression, suicidal or homicidal ideation, hallucinations. <Pau Bang - Last Filed: 01/24/17 03:27> *Physical Exam - Vital Signs Last Vital Signs Temp Pulse Resp BP Pulse Ox 102.1 F H 110 H 20 143/62 97 01/23/17 22:11 01/23/17 22:11 01/23/17 22:11 01/23/17 22:11 01/23/17 22:11 - Physical Exam Comments: 01/24/17 03:29 GENERAL: +Generalized weakness, +Some depression because of her daughter on Sunday. Well developed, well nourished. Awake and alert. HEENT: Normocephalic, atraumatic. PERRLA, EOMI. No conjunctival pallor. Sclera are non- icteric. Moist mucous membranes. Oropharynx is clear. NECK: Supple. Full ROM. No JVD. Carotid pulses 2+ and symmetric, without bruits. No thyromegaly. No lymphadenopathy. CARDIOVASCULAR: +Tachycardic. No murmurs, rubs, or gallops. Distal pulses are 2+ and symmetric. PULMONARY: +Fine bibasilar rales. No evidence of respiratory distress. No wheezingor rhonchi. ABDOMINAL: Soft. Non-tender. Non-distended. No rebound or guarding. No organomegaly. Normoactive bowel sounds. MUSCULOSKELETAL Normal range of motion at all joints. No bony deformities or tenderness. No CVA tenderness. EXTREMITIES: No cyanosis. No clubbing. No edema. No calf tenderness. SKIN: Warm and dry. Normal capillary refill. No rashes. No jaundice. NEUROLOGICAL: Alert, awake, appropriate. Cranial nerves 2-12 intact. No deficits to light touch and temperature in face, upper extremities and lower extremities. No motor deficits in the in face, upper extremities and lower extremities. Normoreflexic in the upper and lower extremities. Normal speech. Toes are down-going bilaterally. Ambulatory without ataxia PSYCHIATRIC: Cooperative. Good eye contact. Appropriate mood and affect. <Pau Bang - Last Filed: 01/24/17 03:27> - Vital Signs Last Vital Signs Temp Pulse Resp BP Pulse Ox 102.1 F H 110 H 20 143/62 97 01/23/17 22:11 01/23/17 22:11 01/23/17 22:11 01/23/17 22:11 01/23/17 22:11 <AlbinBisi - Last Filed: 01/24/17 04:44> ED Treatment Course - LABORATORY CBC & Chemistry Diagram: 01/24/17 00:23 01/24/17 00:23 - ADDITIONAL ORDERS Additional order review: Laboratory Results 01/24/17 01/24/17 01/24/17 03:10 00:48 00:35 PT with INR INR PTT (Actin FS) VBG pH 7.41 POC VBG pCO2 34.2 L D POC VBG pO2 52.1 H D Mixed VBG HCO3 21.5 Sodium Potassium Chloride Carbon Dioxide Anion Gap BUN Creatinine Creat Clearance w eGFR POC Glucometer [phone] Random Glucose Lactic Acid Calcium Total Bilirubin AST ALT Alkaline Phosphatase Creatine Kinase Troponin I Total Protein Albumin Urine Color Dkyellow Urine Appearance Slcloudy Urine pH 5.0 D Urine Protein Negative Urine Glucose (UA) Negative Urine Ketones Negative Urine Blood Negative Urine Nitrite Negative Urine Bilirubin Negative Urine Urobilinogen Negative Blood Type Antibody Screen 01/24/17 01/24/17 01/24/17 00:23 00:23 00:23 PT with INR INR PTT (Actin FS) VBG pH POC VBG pCO2 POC VBG pO2 Mixed VBG HCO3 Sodium 135 L Potassium 3.9 Chloride 101 Carbon Dioxide 22 Anion Gap 12 BUN 16 D Creatinine 1.2 H D Creat Clearance w eGFR 43.56 POC Glucometer Random Glucose 261 H D Lactic Acid 3.3 H* Calcium 8.6 Total Bilirubin 0.2 D AST 14 L ALT 18 Alkaline Phosphatase 48 Creatine Kinase 59 Troponin I < 0.02 Total Protein 6.7 Albumin 3.1 L Urine Color Urine Appearance Urine pH Urine Protein Urine Glucose (UA) Urine Ketones Urine Blood Urine Nitrite Urine Bilirubin Urine Urobilinogen Blood Type O POSITIVE Antibody Screen Negative 01/24/17 00:23 PT with INR 13.30 H INR 1.20 H PTT (Actin FS) 23.6 L D VBG pH POC VBG pCO2 POC VBG pO2 Mixed VBG HCO3 Sodium Potassium Chloride Carbon Dioxide Anion Gap BUN Creatinine Creat Clearance w eGFR POC Glucometer Random Glucose Lactic Acid Calcium Total Bilirubin AST ALT Alkaline Phosphatase Creatine Kinase Troponin I Total Protein Albumin Urine Color Urine Appearance Urine pH Urine Protein Urine Glucose (UA) Urine Ketones Urine Blood Urine Nitrite Urine Bilirubin Urine Urobilinogen Blood Type Antibody Screen 01/24/17 01/24/17 00:48 00:23 RBC 3.58 L MCV 90.3 MCHC 32.9 RDW 13.2 MPV 8.7 Neutrophils % No Result Required. Lymphocytes % No Result Required. POC Glucometer [phone] - Medications Given in the ED: ED Medications Discontinued Medications Generic Name Dose Route Start Last Admin Trade Name Adriano PRN Reason Stop Dose Admin Sodium Chloride 500 ml 01/23/17 23:24 01/24/17 00:55 Normal Saline - IV 01/23/17 23:25 500 ml Q20M STA Administration <BetiPau - Last Filed: 01/24/17 03:27> - LABORATORY CBC & Chemistry Diagram: 01/24/17 00:23 01/24/17 00:23 - ADDITIONAL ORDERS Additional order review: Laboratory Results 01/24/17 01/24/17 01/24/17 00:48 00:35 00:23 PT with INR INR PTT (Actin FS) VBG pH 7.41 POC VBG pCO2 34.2 L D POC VBG pO2 52.1 H D Mixed VBG HCO3 21.5 Sodium Potassium Chloride Carbon Dioxide Anion Gap BUN Creatinine Creat Clearance w eGFR POC Glucometer [phone] Random Glucose Lactic Acid 3.3 H* Calcium Total Bilirubin AST ALT Alkaline Phosphatase Creatine Kinase Troponin I Total Protein Albumin Blood Type Antibody Screen 01/24/17 01/24/17 01/24/17 00:23 00:23 00:23 PT with INR 13.30 H INR 1.20 H PTT (Actin FS) 23.6 L D VBG pH POC VBG pCO2 POC VBG pO2 Mixed VBG HCO3 Sodium 135 L Potassium 3.9 Chloride 101 Carbon Dioxide 22 Anion Gap 12 BUN 16 D Creatinine 1.2 H D Creat Clearance w eGFR 43.56 POC Glucometer Random Glucose 261 H D Lactic Acid Calcium 8.6 Total Bilirubin 0.2 D AST 14 L ALT 18 Alkaline Phosphatase 48 Creatine Kinase 59 Troponin I < 0.02 Total Protein 6.7 Albumin 3.1 L Blood Type O POSITIVE Antibody Screen Negative 01/24/17 01/24/17 00:48 00:23 RBC 3.58 L MCV 90.3 MCHC 32.9 RDW 13.2 MPV 8.7 Neutrophils % No Result Required. Lymphocytes % No Result Required. POC Glucometer [phone] - RADIOLOGY Radiology Studies Ordered: Category Date Time Status CHEST X-RAY PORTABLE* [RAD] Stat Radiology 01/23/17 23:24 Completed - Medications Given in the ED: ED Medications Discontinued Medications Generic Name Dose Route Start Last Admin Trade Name Adriano PRN Reason Stop Dose Admin Sodium Chloride 500 ml 01/23/17 23:24 01/24/17 00:55 Normal Saline - IV 01/23/17 23:25 500 ml Q20M STA Administration <Bisi Talamantes - Last Filed: 01/24/17 04:44> Medical Decision Making - Medical Decision Making 01/24/17 03:49 76-year-old female brought from home with fever, generalized weakness and decreased by mouth intake Patient had been discharged from [facility] on where she was treated for a lactic acidosis and leukocytosis. Patient denies any nausea, vomiting, cough, chest pain, abdominal pain She has chronic joint pain due to arthritis and has pain in her right shoulder and right hip. She has not had any recent trauma. On physical exam, her lungs were clear, her abdomen was soft, she had no significant skin rashes or lesions. She was able to ambulate and was verbal <Bisi Talamantes - Last Filed: 01/24/17 04:44> *DC/Admit/Observation/Transfer - Attestations Scribe Attestion: 01/24/17 03:31 Documentation prepared by YOGESH Quinteros, acting as manager medical affairs for Bisi Talamantes MD. <Pau Bang - Last Filed: 01/24/17 03:27> - Discharge Dispostion Admit: Yes <Bisi Talamantes - Last Filed: 01/24/17 04:44> Diagnosis at time of Disposition: Systemic inflammatory response syndrome (SIRS) Urinary tract infection Qualifiers: Urinary tract infection type: site unspecified Hematuria presence: without hematuria Qualified Code(s): N39.0 - Urinary tract infection, site not specified Leukocytosis (leucocytosis) Qualifiers: Leukocytosis type: unspecified Qualified Code(s): D72.829 - Elevated white blood cell count, unspecified Fever Qualifiers: Fever type: unspecified Qualified Code(s): R50.9 - Fever, unspecified - Referrals Referrals: José Denis MD [Primary Care Provider] -
[2017-01-24 03:24] LABS: URINE LEUK ESTERASE 1+ (NEGATIVE)
[2017-01-24 03:26] LABS: URINE BACTERIA RARE /hpf (NONE SEEN); URINE HYALINE CAST 39 /lpf; URINE MUCUS FEW; URINE RBC 4 /hpf (0-3); URINE WBC 26 /hpf (3-5)
[2017-01-24] MEDS ORDERED: LEVOFLOXACIN 750 MG IVPB 150 ML IVPB ONE ×2 (03:47→04:19)
--- NOTE | 2017-01-24 11:04 | EKG ---
Test Reason : Blood Pressure : / mmHG Vent. Rate : 096 BPM Atrial Rate : 096 BPM P-R Int : 158 ms QRS Dur : 122 ms QT Int : 394 ms P-R-T Axes : 030 -20 076 degrees QTc Int : 497 ms NORMAL SINUS RHYTHM LEFT BUNDLE BRANCH BLOCK ABNORMAL ECG WHEN COMPARED WITH ECG OF 13-JAN-2017 00:38, LEFT BUNDLE BRANCH BLOCK IS NOW PRESENT MINIMAL CRITERIA FOR ANTEROSEPTAL INFARCT ARE NO LONGER PRESENT Confirmed by ZAFAR MOREIRA MD ([id number]) on 01/24/2017 11:04:09 AM Referred By: Confirmed By:ZAFAR MOREIRA MD
[2017-01-24] MEDS ORDERED: SODIUM CHLORIDE 0.45% 1,000 ML IV SCH (12:00)
[2017-01-24] MEDS ORDERED: ASPIRIN COATED 81 MG TABLET.EC ONE (12:29)
[2017-01-24] MEDS: SODIUM CHLORIDE 0.45% 1,000 ML IV SCH ×2 (12:40→23:30)
[2017-01-24] MEDS: ASPIRIN COATED 81 MG TABLET.EC PO SCH (12:40)
--- NOTE | 2017-01-24 15:19 | HP ---
Admitting History and Physical - Admission History of Present Illness: Pt is a 76 year old female with PMH significant for diabetes, recurrent UTIs, HTN, breast cancer, arthritis and renal insufficiency. Pt now presented to the ER bc of chills, weakness and loss of apetite wc began suddenly. In the ER pt found to have temp of 102 w/ WBC of 27,ooo and lactic acid of 3.3. Pt recenlty was dc'ed from [facility] on antibxs. History Source: Patient, Medical Record - Past Medical History Cardiovascular: Yes: HTN, Hyperlipdemia Gastrointestinal: Yes: Other (chronic conspitation, nausea) Renal/: Yes: UTI Heme/Onc: Yes: Cancer (Breast cancer) Infectious Disease: Yes: Other (Recurrent UTI) Endocrine: Yes: Diabetes Mellitus - Past Surgical History Past Surgical History: Yes: Mastectomy - Smoking History Smoking history: Never smoked Have you smoked in the past 12 months: No Aproximately how many cigarettes per day: 0 - Alcohol/Substance Use Hx Alcohol Use: No History of Substance Use: reports: None - Social History ADL: Family Assistance History of Recent Travel: No Home Medications - Allergies Allergies/Adverse Reactions: Allergies Allergy/AdvReac Type Severity Reaction Status Date / Time No Known Drug Allergies Allergy Verified 01/23/17 22:16 - Home Medications Home Medications: Ambulatory Orders Aspirin [Aspirin EC] 81 mg PO DAILY 11/23/16 Insulin Degludec [Tresiba Flextouch U-100] 12 unit SQ AM 11/23/16 Losartan Potassium 25 mg PO DAILY 11/23/16 Metformin HCl 500 mg PO BID 11/23/16 Metoprolol Succinate [Toprol Xl] 50 mg PO DAILY 11/23/16 Tamoxifen Citrate 20 mg PO DAILY 11/23/16 Atorvastatin Ca [Lipitor] 40 mg PO DAILY 11/24/16 Lubiprostone [Amitiza] 8 mcg PO BID 01/13/17 Nitrofurantoin Monohyd/M-Cryst [Nitrofurantoin Duval-Mcr 100 mg] 100 mg PO Q2D MDD every other day 01/13/17 Acetaminophen [Tylenol .Regular Strength -] 650 mg PO Q6H PRN #90 tablet Family Disease History - Family Disease History Family History: Unremarkable Review of Systems - Review of Systems Constitutional: reports: Chills, Fever Eyes: reports: No Symptoms HENT: reports: No Symptoms Neck: reports: No Symptoms Cardiovascular: reports: No Symptoms Respiratory: reports: No Symptoms Gastrointestinal: reports: No Symptoms Physical Examination Vital Signs: Vital Signs Temperature 98.7 F 01/24/17 11:46 Pulse Rate 81 01/24/17 15:10 Respiratory Rate 18 01/24/17 15:10 Blood Pressure 111/66 01/24/17 15:10 O2 Sat by Pulse Oximetry (%) 98 01/24/17 15:10 Constitutional: Yes: No Distress Eyes: Yes: WNL HENT: Yes: WNL Neck: Yes: WNL, Supple Cardiovascular: Yes: WNL, Regular Rate and Rhythm Respiratory: Yes: WNL, Regular, CTA Bilaterally Gastrointestinal: Yes: WNL, Normal Bowel Sounds, Soft Musculoskeletal: Yes: WNL Extremities: Yes: WNL Neurological: Yes: WNL, Alert, Oriented ...Motor Strength: WNL Problem List - Problems (1) Sepsis Assessment/Plan: Cont IV antibxs Follow cultures ID consult Trend lactic acid Cont IVF Code(s): A41.9 - SEPSIS, UNSPECIFIED ORGANISM (2) Systemic inflammatory response syndrome (SIRS) Code(s): R65.10 - SIRS OF NON-INFECTIOUS ORIGIN W/O ACUTE ORGAN DYSFUNCTION (3) Uncontrolled diabetes mellitus Assessment/Plan: Cont metformin/amitiza/sliding scale w/ coverage Code(s): E11.65 - TYPE 2 DIABETES MELLITUS WITH HYPERGLYCEMIA (4) HTN (hypertension) Assessment/Plan: Hold antihypertensives due to sepsis Code(s): I10 - ESSENTIAL (PRIMARY) HYPERTENSION (5) HLD (hyperlipidemia) Assessment/Plan: Cont lipitor Code(s): E78.5 - HYPERLIPIDEMIA, UNSPECIFIED (6) History of breast cancer in female Assessment/Plan: Cont tamoxifen Code(s): Z85.3 - PERSONAL HISTORY OF MALIGNANT NEOPLASM OF BREAST (7) Lactate blood increase Code(s): R79.89 - OTHER SPECIFIED ABNORMAL FINDINGS OF BLOOD CHEMISTRY
[2017-01-24] MEDS: metFORMIN HCL 500 MG TABLET (FP) PO SCH (16:37)
[2017-01-24] MEDS: INSULIN SLIDING SCALE (NOVOLOG) 1 VIAL SQ SCH ×2 (16:39→21:43)
--- NOTE | 2017-01-24 17:08 | CON.ID ---
Consult Consult Specialty:: infectious diseases Referred by:: Reason for Consultation:: sepsis,leukocytosis - History of Present Illness Chief Complaint: weakness,lethargy and dizziness History of Present Illness: 76 year old female with a significant past medical history of diabetes, recurrent UTIs, arthritis and renal insufficiency who presents to the ED with generalized weakness and fever. Patient was recently admitted for leukocytosis, blood glucose and was dc home on . As per daughter the patients other daughter on Sunday, so patient is having difficulty coping with a loss and is depressed. She reports decreased PO for the patient and difficulty getting out of the bed, which is not her baseline. She also reports a subjective fever of 100.5 F. The also report associated joint aches. daughter mentions that yesterday she could not stand up at all and passed urine without knowing which she has ever done till now currently patient starting to feel better no c/o of fever or abd pain - History Source History Provided By: Family Member Limitations to Obtaining History: Language Barrier - Past Medical History Cardio/Vascular: Yes: HTN, Hyperlipdemia Gastrointestinal: Yes: Other (chronic conspitation, nausea) Renal/: Yes: UTI Infectious Disease: Yes: Other (Recurrent UTI) Endocrine: Yes: Diabetes Mellitus - Past Surgical History Past Surgical History: Yes: Mastectomy - Alcohol/Substance Use Hx Alcohol Use: No History of Substance Use: reports: None - Smoking History Smoking history: Never smoked Have you smoked in the past 12 months: No Aproximately how many cigarettes per day: 0 - Social History ADL: Family Assistance History of Recent Travel: No Home Medications - Allergies Allergies/Adverse Reactions: Allergies Allergy/AdvReac Type Severity Reaction Status Date / Time No Known Drug Allergies Allergy Verified 01/23/17 22:16 - Home Medications Home Medications: Ambulatory Orders Aspirin [Aspirin EC] 81 mg PO DAILY 11/23/16 Insulin Degludec [Tresiba Flextouch U-100] 12 unit SQ AM 11/23/16 Losartan Potassium 25 mg PO DAILY 11/23/16 Metformin HCl 500 mg PO BID 11/23/16 Metoprolol Succinate [Toprol Xl] 50 mg PO DAILY 11/23/16 Tamoxifen Citrate 20 mg PO DAILY 11/23/16 Atorvastatin Ca [Lipitor] 40 mg PO DAILY 11/24/16 Lubiprostone [Amitiza] 8 mcg PO BID 01/13/17 Nitrofurantoin Monohyd/M-Cryst [Nitrofurantoin Ogle-Mcr 100 mg] 100 mg PO Q2D MDD every other day 01/13/17 Acetaminophen [Tylenol .Regular Strength -] 650 mg PO Q6H PRN #90 tablet Review of Systems - Review of Systems Constitutional: reports: Loss of Appetite, Weakness Eyes: reports: No Symptoms HENT: reports: No Symptoms Neck: reports: No Symptoms Cardiovascular: reports: No Symptoms Respiratory: reports: No Symptoms Gastrointestinal: reports: No Symptoms Genitourinary: reports: Other (unable to hold urine) Musculoskeletal: reports: Muscle Weakness Integumentary: reports: No Symptoms Neurological: reports: No Symptoms Endocrine: reports: No Symptoms Hematology/Lymphatic: reports: No Symptoms Psychiatric: reports: No Symptoms Physical Exam Vital Signs: Vital Signs Temperature 98.8 F 01/24/17 15:51 Pulse Rate 81 01/24/17 15:51 Respiratory Rate 18 01/24/17 15:51 Blood Pressure 110/57 01/24/17 15:51 O2 Sat by Pulse Oximetry (%) 98 01/24/17 15:10 Constitutional: Yes: Well Nourished, No Distress, Calm Eyes: Yes: Conjunctiva Clear HENT: Yes: Atraumatic Neck: Yes: Supple, Trachea Midline Cardiovascular: Yes: Regular Rate and Rhythm Respiratory: Yes: Regular, CTA Bilaterally Gastrointestinal: Yes: Normal Bowel Sounds, Soft Musculoskeletal: Yes: WNL Extremities: Yes: WNL Neurological: Yes: Alert, Oriented Psychiatric: Yes: Alert, Oriented Imaging - Results Chest X-ray: Report Reviewed, Image Reviewed Assessment/Plan patient evaluated multiple history of utis admitted with weakness and dizziness uti weakness dizziness leukocytosis plan will await all reports will start patient on ceftriaxone rest continue current mgmt hydration monitor wbc
[2017-01-24] MEDS ORDERED: cefTRIAXone SODIUM 1 GM VIAL ONE (17:16)
[2017-01-24] MEDS ORDERED: DEXTROSE 5%-WATER - 50 ML IVPB ONE (17:17)
[2017-01-24] MEDS: CEFTRIAXONE 1 GM in DEXTROSE 5%-WATER - 50 ML IVPB SCH (17:21)
[2017-01-24] MEDS: HEPARIN NA (PORCINE) 5,000 UNITS/ML 1ML VIAL SQ SCH (21:44)
[2017-01-25] MEDS: metFORMIN HCL 500 MG TABLET (FP) PO SCH ×2 (06:24→16:33)
[2017-01-25] MEDS: INSULIN DETEMIR 100 UNITS/ML MDV SQ SCH (06:25)
[2017-01-25] MEDS: INSULIN SLIDING SCALE (NOVOLOG) 1 VIAL SQ SCH ×4 (06:26→21:58)
[2017-01-25 07:57] LABS: BASOPHIL 0.2 % (0-2.0); EOSINOPHIL 5.2 % (0-4.5); MCH 29.5 pg (25.7-33.7); MCHC 32.4 g/dl (32.0-36.0); MEAN CELL VOLUME 91.1 fl (80-96); MEAN PLT VOLUME 8.4 fl (7.5-11.1); NEUTROPHILS 71.4 % (42.8-82.8); PLATELET COUNT 252 K/MM3 (134-434); RDW 13.4 % (11.6-15.6); WHITE BLOOD COUNT 9.9 K/mm3 (4.0-10.0)
[2017-01-25 08:17] LABS: ALBUMIN 2.5 g/dl (3.4-5.0); ANION GAP 7 (8-16); CALCIUM 8.4 mg/dL (8.5-10.1); CO2 27 mmol/L (21-32); CREATININE 0.8 mg/dL (0.55-1.02); GLUCOSE,RANDOM 160 mg/dL (74-106); SGOT/AST 8 U/L (15-37); SGPT/ALT 14 U/L (12-78)
[2017-01-25 08:19] LABS: ALK PHOS 40 U/L (45-117); BILIRUBIN,TOTAL 0.2 mg/dL (0.2-1.0); TOT PROT 5.5 g/dl (6.4-8.2)
[2017-01-25] MEDS ORDERED: cefTRIAXone SODIUM 1 GM VIAL ONE (09:26)
[2017-01-25] MEDS ORDERED: DEXTROSE 5%-WATER - 50 ML IVPB ONE (09:26)
[2017-01-25] MEDS ORDERED: PT OWN MED DRAWER 7, Y5N ONE (09:26)
[2017-01-25] MEDS: CEFTRIAXONE 1 GM in DEXTROSE 5%-WATER - 50 ML IVPB SCH (09:29)
[2017-01-25] MEDS: SODIUM CHLORIDE 0.45% 1,000 ML IV SCH ×3 (09:29→21:55)
[2017-01-25] MEDS: HEPARIN NA (PORCINE) 5,000 UNITS/ML 1ML VIAL SQ SCH ×2 (09:31→21:56)
[2017-01-25] MEDS: ASPIRIN COATED 81 MG TABLET.EC PO SCH (09:31)
[2017-01-25] MEDS ORDERED: TAMOXIFEN CITRATE 10 MG TABLET PO SCH (10:00)
[2017-01-25] MEDS ORDERED: LOSARTAN POTASSIUM 25 MG TABLET PO SCH (10:00)
[2017-01-25] MEDS ORDERED: ATORVASTATIN CA 40 MG TABLET (FP) PO SCH (10:00)
[2017-01-25] MEDS ORDERED: INSULIN (NOVOLOG) ASPART 100 UNITS/ML 10ML VIAL ONE ×2 (11:16→21:26)
[2017-01-25] MEDS: LUBIPROSTONE 8 MCG PO SCH ×2 (13:15→21:58)
--- NOTE | 2017-01-25 16:14 | PN ---
Progress Note, Physician History of Present Illness: stable daughter in room feels much better - Current Medication List Current Medications: Active Medications Aspirin (Ecotrin -) 81 mg PO DAILY [facility] Last Admin: 01/25/17 09:31 Dose: 81 mg Atorvastatin Calcium (Lipitor -) 40 mg PO DAILY [facility] Last Admin: 01/25/17 09:31 Dose: 40 mg Heparin Sodium (Porcine) (Heparin -) 5,000 unit SQ BID [facility] Last Admin: 01/25/17 09:31 Dose: 5,000 unit Sodium Chloride (1/2 Normal Saline) 1,000 mls @ 100 mls/hr IV ASDIR [facility] Last Admin: 01/25/17 09:29 Dose: 100 mls/hr Ceftriaxone Sodium 1 gm/ (Dextrose) 50 mls @ 100 mls/hr IVPB DAILY [facility] Last Admin: 01/25/17 09:29 Dose: 100 mls/hr Insulin Aspart (Novolog Vial Sliding Scale -) 1 vial SQ [facility] PRN Reason: Protocol Last Admin: 01/25/17 11:40 Dose: Not Given Insulin Detemir (Levemir Vial) 12 units SQ AM [facility] Last Admin: 01/25/17 06:25 Dose: 12 units Metformin HCl (Glucophage -) 500 mg PO BIDAC [facility] Last Admin: 01/25/17 06:24 Dose: 500 mg (Lubiprostone [ Amitiza] 8 Mcg Capsule (Pts Own) 8 mcg PO BID [facility] Last Admin: 01/25/17 13:15 Dose: 8 mcg Tamoxifen Citrate (Tamoxifen Citrate) 20 mg PO DAILY [facility] Last Admin: 01/25/17 09:30 Dose: 20 mg - Objective Vital Signs: Vital Signs Temperature 97.9 F 01/25/17 14:00 Pulse Rate 84 01/25/17 14:00 Respiratory Rate 20 01/25/17 14:00 Blood Pressure 145/62 01/25/17 14:00 O2 Sat by Pulse Oximetry (%) 95 01/25/17 09:00 Constitutional: Yes: No Distress, Calm Cardiovascular: Yes: Regular Rate and Rhythm Respiratory: Yes: Regular, CTA Bilaterally Gastrointestinal: Yes: Normal Bowel Sounds, Soft Musculoskeletal: Yes: WNL Extremities: Yes: WNL Neurological: Yes: Alert, Oriented Psychiatric: Yes: Alert, Oriented Labs: CBC, BMP 01/25/17 06:30 09/28/17 06:30 INR, PTT INR 1.20 (0.82-1.09) H 01/24/17 00:23 Assessment/Plan uti weakness dizziness leukocytosis still with sweakness but much better all cx reports noted wbc normalized plan will stop abx close monitoring rest as per primary team
--- NOTE | 2017-01-25 23:28 | PN ---
Progress Note, Physician History of Present Illness: Pt remains afebrile - Current Medication List Current Medications: Active Medications Aspirin (Ecotrin -) 81 mg PO DAILY [facility] Last Admin: 01/25/17 09:31 Dose: 81 mg Atorvastatin Calcium (Lipitor -) 40 mg PO DAILY [facility] Last Admin: 01/25/17 09:31 Dose: 40 mg Heparin Sodium (Porcine) (Heparin -) 5,000 unit SQ BID [facility] Last Admin: 01/25/17 21:56 Dose: 5,000 unit Sodium Chloride (1/2 Normal Saline) 1,000 mls @ 100 mls/hr IV ASDIR [facility] Last Admin: 01/25/17 21:55 Dose: 100 mls/hr Insulin Aspart (Novolog Vial Sliding Scale -) 1 vial SQ ACHS [facility] PRN Reason: Protocol Last Admin: 01/25/17 21:58 Dose: Not Given Insulin Detemir (Levemir Vial) 12 units SQ AM [facility] Last Admin: 01/25/17 06:25 Dose: 12 units Metformin HCl (Glucophage -) 500 mg PO BIDAC [facility] Last Admin: 01/25/17 16:33 Dose: 500 mg (Lubiprostone [ Amitiza] 8 Mcg Capsule (Pts Own) 8 mcg PO BID [facility] Last Admin: 01/25/17 21:58 Dose: Not Given Tamoxifen Citrate (Tamoxifen Citrate) 20 mg PO DAILY [facility] Last Admin: 01/25/17 09:30 Dose: 20 mg - Objective Vital Signs: Vital Signs Temperature 98.3 F 01/25/17 20:10 Pulse Rate 85 01/25/17 20:10 Respiratory Rate 20 01/25/17 20:10 Blood Pressure 152/73 01/25/17 20:10 O2 Sat by Pulse Oximetry (%) 95 01/25/17 09:00 Constitutional: Yes: No Distress Neck: Yes: WNL, Supple Cardiovascular: Yes: WNL, Regular Rate and Rhythm Respiratory: Yes: WNL, Regular, CTA Bilaterally Gastrointestinal: Yes: WNL, Normal Bowel Sounds, Soft Edema: No Labs: CBC, BMP 01/25/17 06:30 01/25/17 06:30 INR, PTT INR 1.20 (0.82-1.09) H 01/24/17 00:23 Problem List - Problems (1) Sepsis Assessment/Plan: Antibxs were stopped WBC is normal DC planning for am Cultures remain negative Code(s): A41.9 - SEPSIS, UNSPECIFIED ORGANISM (2) Systemic inflammatory response syndrome (SIRS) Code(s): R65.10 - SIRS OF NON-INFECTIOUS ORIGIN W/O ACUTE ORGAN DYSFUNCTION (3) Uncontrolled diabetes mellitus Assessment/Plan: Cont metformin/amitiza/sliding scale w/ coverage Code(s): E11.65 - TYPE 2 DIABETES MELLITUS WITH HYPERGLYCEMIA (4) HTN (hypertension) Assessment/Plan: Will restart antihypertensives on dc Code(s): I10 - ESSENTIAL (PRIMARY) HYPERTENSION (5) HLD (hyperlipidemia) Assessment/Plan: Cont lipitor Code(s): E78.5 - HYPERLIPIDEMIA, UNSPECIFIED (6) History of breast cancer in female Code(s): Z85.3 - PERSONAL HISTORY OF MALIGNANT NEOPLASM OF BREAST (7) Lactate blood increase Code(s): R79.89 - OTHER SPECIFIED ABNORMAL FINDINGS OF BLOOD CHEMISTRY
[2017-01-26] MEDS: metFORMIN HCL 500 MG TABLET (FP) PO SCH (06:39)
[2017-01-26] MEDS: INSULIN SLIDING SCALE (NOVOLOG) 1 VIAL SQ SCH (06:39)
[2017-01-26] MEDS: INSULIN DETEMIR 100 UNITS/ML MDV SQ SCH (06:41)
[2017-01-26] MEDS: SODIUM CHLORIDE 0.45% 1,000 ML IV SCH (06:43)
[2017-01-26 08:51] VITALS: BP 124/51; PULSE 75; TEMP 98.1
== END 2017-01-26 09:15 | disposition home or self-care (01) | DRG 872 ==
LOC: JER 22:10 → JERBED 01-24 03:59 → UNDOADMIN 01-24 04:07 → J6S 01-24 15:28
PROVIDERS: ADMIT Internal Medicine; ATTEND Internal Medicine
DX: A41.9 Sepsis, unspecified organism (principal); N39.0 Urinary tract infection, site not specified; E11.65 Type 2 diabetes mellitus with hyperglycemia; E78.5 Hyperlipidemia, unspecified; Z85.3 Personal history of malignant neoplasm of breast; D72.829 Elevated white blood cell count, unspecified; I10 Essential (primary) hypertension
CPT/HCPCS: 36415; 71010-TC; 80053; 81003; 81015; 82803; 83605; 84484; 85025; 85610; 85730; 86850; 86900; 86901; 87040; 87086; 93005; 93010; 99285-25; J1644

== ENCOUNTER 2017-05-05 11:31 | Emergency (ER) | payer OTHER ==
[2017-05-05 11:35] VITALS: TEMP 98.8; BMI 24.7
--- NOTE | 2017-05-05 11:45 | PDOC ---
History of Present Illness - General Chief Complaint: Pain Stated Complaint: PAIN Time Seen by Provider: 05/05/17 11:44 - History of Present Illness Initial Comments: 05/05/17 11:45 Ms. Renteria is a 76 yo female w/ pmh of IDDM, HTN, HLD, breast cancer in remission, and recent dx of spinal stenosis who presents c/o a 3 day history of "stomach pain" that she localizes to her lower sternum. She reports she has been evaluated previously and told she had a gall stone but that it was small at that time and did not require surgery. She reports her pain currently is made worse by food but that she has had no nausea, vomiting, or diarrrhea. The patient denies shortness of breath, headache and dizziness. Denies fever, chills, and constipation. Denies dysuria, frequency, urgency and hematuria. Allergies: NKDA Past History - Past Medical History Allergies/Adverse Reactions: Allergies Allergy/AdvReac Type Severity Reaction Status Date / Time No Known Drug Allergies Allergy Verified 05/05/17 11:34 Home Medications: Ambulatory Orders Aspirin 81 mg PO DAILY 05/05/17 Atorvastatin Ca [Lipitor] 40 mg PO HS 05/05/17 Losartan Potassium 25 mg PO DAILY 05/05/17 Metformin HCl [Metformin HCl ER] 1,000 mg PO BID 05/05/17 Metoprolol Succinate [Toprol Xl] 50 mg PO DAILY 05/05/17 Nifedipine [Procardia Xl] 30 mg PO DAILY 05/05/17 Tamoxifen Citrate 20 mg PO DAILY 05/05/17 Anemia: No Asthma: No Cancer: Yes (Rt breast 02/08) Cardiac Disorders: No CVA: No COPD: No CHF: No Dementia: No Diabetes: Yes (1999) GI Disorders: Yes (Constipation) Disorders: No HTN: Yes Hypercholesterolemia: Yes Liver Disease: No Seizures: No Thyroid Disease: No Other medical history: gallstones - Surgical History Abdominal Surgery: No Appendectomy: No Cardiac Surgery: No Cholecystectomy: No Lung Surgery: No Neurologic Surgery: No Orthopedic Surgery: No - Immunization History Immunization Up to Date: No - Suicide/Smoking/Psychosocial Hx Smoking Status: No Smoking History: Never smoked Have you smoked in the past 12 months: No Number of Cigarettes Smoked Daily: 0 Hx Alcohol Use: No Drug/Substance Use Hx: No Substance Use Type: None Hx Substance Use Treatment: No Review of Systems - Review of Systems Comments:: 05/05/17 11:45 GENERAL/CONSTITUTIONAL: No fever or chills. No weakness. HEAD, EYES, EARS, NOSE AND THROAT: No change in vision. No ear pain or discharge. No sore throat. CARDIOVASCULAR: No chest pain or shortness of breath RESPIRATORY: No cough, wheezing, or hemoptysis. GASTROINTESTINAL: +Upper abdominal / lower sternum pain. No nausea, vomiting, diarrhea or constipation. GENITOURINARY: No dysuria, frequency, or change in urination. MUSCULOSKELETAL: No joint or muscle swelling or pain. No neck or back pain. SKIN: No rash NEUROLOGIC: No headache, vertigo, loss of consciousness, or change in strength/ sensation. ENDOCRINE: No increased thirst. No abnormal weight change HEMATOLOGIC/LYMPHATIC: No anemia, easy bleeding, or history of blood clots. ALLERGIC/IMMUNOLOGIC: No hives or skin allergy. *Physical Exam - Vital Signs Last Vital Signs Temp Pulse Resp BP Pulse Ox 98.8 F 101 H 20 188/93 97 05/05/17 11:32 05/05/17 11:32 05/05/17 11:32 05/05/17 11:32 05/05/17 11:32 - Physical Exam Comments: 05/05/17 11:45 GENERAL: Awake, alert, and fully oriented, in no acute distress HEAD: No signs of trauma, normocephalic, atraumatic EYES: PERRLA, EOMI, sclera anicteric, conjunctiva clear ENT: Auricles normal inspection, hearing grossly normal, nares patent, oropharynx clear without exudates. Moist mucosa NECK: Normal ROM, supple, no lymphadenopathy, JVD, or masses LUNGS: No distress, speaks full sentences, clear to auscultation bilaterally HEART: Regular rate and rhythm, normal S1 and S2, no murmurs, rubs or gallops, peripheral pulses normal and equal bilaterally. ABDOMEN: +Upper abdomen / lower sternum TTP in midline. Soft, nontender, normoactive bowel sounds. No guarding, no rebound. No masses EXTREMITIES: Normal inspection, Normal range of motion, no edema. No clubbing or cyanosis. NEUROLOGICAL: Cranial nerves II through XII grossly intact. Normal speech, normal gait, no focal sensorimotor deficits SKIN: Warm, Dry, normal turgor, no rashes or lesions noted. ED Treatment Course - LABORATORY CBC & Chemistry Diagram: 05/05/17 13:35 05/05/17 13:35 Medical Decision Making - Medical Decision Making 05/05/17 14:45 Ms. Renteria is a 76 yo female w/ pmh of IDDM, HTN, HLD, breast cancer in remission, spinal stenosis presenting w/ symptoms consistent with GERD. Cardiac causes r/o with negative EKG and negative troponin. Labs grossly wnl as below. Patient reports relief following pepcid and 1L NS. Will d/c with instructions to f/u with PCP for further evaluation. Patient's daughter reports she is very familiar with GERD and will purchase OTC pepcid, maalox, and prilosec for treatment. Verbalized understanding and agreement with plan. Laboratory Results - last 24 hr 05/05/17 05/05/17 13:35 13:35 WBC 10.7 H RBC 4.38 D Hgb 12.5 D Hct 38.5 D MCV 88.0 MCH 28.6 MCHC 32.5 RDW 14.2 Plt Count 244 MPV 8.6 Neutrophils % 74.3 Lymphocytes % 15.8 Monocytes % 7.1 Eosinophils % 1.9 Basophils % 0.9 D Sodium 137 Potassium 4.4 Chloride 99 Carbon Dioxide 27 Anion Gap 11 BUN 11 Creatinine 1.0 D Creat Clearance w eGFR 53.76 Random Glucose 298 H D Calcium 9.2 Total Bilirubin 0.2 AST 11 L D ALT 14 Alkaline Phosphatase 64 D Creatine Kinase 56 Troponin I < 0.02 Total Protein 7.0 D Albumin 3.4 D Lipase 178 *DC/Admit/Observation/Transfer Diagnosis at time of Disposition: GERD (gastroesophageal reflux disease) Qualifiers: Esophagitis presence: esophagitis presence not specified Qualified Code(s): K21.9 - Gastro-esophageal reflux disease without esophagitis - Discharge Dispostion Disposition: HOME - Referrals Referrals: José Denis MD [Primary Care Provider] - - Patient Instructions Printed Discharge Instructions: DI for Gastroesophageal Reflux Disease (GERD) Additional Instructions: Please return if any fever, chills, increase or return of pain, or any other concerning symptoms. Follow-up with primary care provider within 1-2 days as discussed. - Post Discharge Activity
--- NOTE | 2017-05-05 12:02 | PDOC ---
Attending Attestation - HPI HPI: 05/05/17 12:44 The patient is a 76 year old female, with a significant past medical history of diabetes, hypertension, hyperlipidemia, spinal stenosis, and breast cancer(in remission), who presents to the emergency department complaining of abdominal pain localized to her epigastrum for 4 days. The patient reports her pain is intermittent and describes it as a "burning." Patient reports her pain is exacerbated by food intake and reports some nausea, but denies any vomiting, diarrhea, or constipation. Patient reports she was previously evaluated for a gallstone, which did not require surgical intervention. Patient denies any dysuria, hematuria, frequency, or urgency. She denies any fever or chills. She denies any shortness of breath, diaphoresis, palpitations, or lower extremity edema. She denies any recent travel or sick contacts. Allergies: NKDA PCP: Dr. Walker. - Physicial Exam PE: 05/05/17 12:44 Vitals: Triage Vital signs reviewed General Appearance: no acute distress, well nourished well developed, Head: Atraumatic, normocephalic Chest Wall: Nontender Cardiac: Regular rate and rhythm, no murmurs, no rubs, no gallops, Lungs: Clear to auscultation bilateral, good air movement bilaterally, Abdomen: Non tender to palpation. Soft, nondistended, normal bowel sounds. Extremities: Full range of motion to all extremities, no cyanosis, clubbing, or edema Skin: Warm and dry, no rashes or lesions, no petechiae Neuro: AOX3; Cranial Nerves 2-12 grossly intact, Strength intact to all extremities, Sensation intact to all extremities. - Medical Decision Making 05/05/17 12:45 Documentation prepared by Candice Engel, acting as senior medical director for Pierre Dickson MD. <Candice Engel - Last Filed: 05/05/17 15:37> - Resident Resident Name: Grover Thacker - ED Attending Attestation I have performed the following: I have examined & evaluated the patient, The case was reviewed & discussed with the resident, I agree w/resident's findings & plan, Exceptions are as noted - Medical Decision Making Well appearing, no apparent distress epigastric burning sensation relieved with Pepcid and Maalox. EKG with no ischemic changes troponin negative four-day history very low suspicion for cardiac etiology Patient will follow-up with her doctor this week she'll return to ED for any severe worsening symptoms or for any concerns Findings, the need for follow-up, strict return instructions discussed with patient. <Pierre Dickson - Last Filed: 05/05/17 16:56> Heart Score/ECG Review - ECG Intrepretation Comment:: 05/05/17 13:45 ECG performed at 13:42:16. Ventricular rate 86 bpm. Normal sinus rhythm. Left bundle branch, which when compared to ECG 01/24/17, is not new. <Candice Engel - Last Filed: 05/05/17 15:37>
[2017-05-05] MEDS ORDERED: SODIUM CHLORIDE 1,000 ML IV STA (12:31)
[2017-05-05] MEDS ORDERED: FAMOTIDINE IV 20 MG/12 ML VIAL IVPUSH ONE (12:31)
[2017-05-05] MEDS ORDERED: FAMOTIDINE 20 MG/50 ML IVPB 20 MG/50 ML MG IVPB ONE (13:22)
[2017-05-05 13:40] LABS: BASO % 0.9 % (0-2.0); EOS % 1.9 % (0-4.5); HEMATOCRIT 38.5 % (32.4-45.2); HEMOGLOBIN 12.5 GM/dL (10.7-15.3); LYMPH % 15.8 % (8-40); MCH 28.6 pg (25.7-33.7); MCHC 32.5 g/dl (32.0-36.0); MEAN PLT VOLUME 8.6 fl (7.5-11.1); MONO % 7.1 % (3.8-10.2); NEUT % 74.3 % (42.8-82.8); PLATELET COUNT 244 K/MM3 (134-434); RBC 4.38 M/mm3 (3.60-5.2); RDW 14.2 % (11.6-15.6); WHITE BLOOD COUNT 10.7 K/mm3 (4.0-10.0)
[2017-05-05 14:07] LABS: ALBUMIN 3.4 g/dl (3.4-5.0); ALK PHOS 64 U/L (45-117); ANION GAP 11 (8-16); BILIRUBIN,TOTAL 0.2 mg/dL (0.2-1.0); BLOOD UREA NITROGEN 11 mg/dL (7-18); CALCIUM 9.2 mg/dL (8.5-10.1); CHLORIDE 99 mmol/L (98-107); CO2 27 mmol/L (21-32); GLUCOSE,RANDOM 298 mg/dL (74-106); LIPASE 178 U/L (73-393); POTASSIUM 4.4 mmol/L (3.5-5.1); SGOT/AST 11 U/L (15-37); SGPT/ALT 14 U/L (12-78); SODIUM 137 mmol/L (136-145)
[2017-05-05 15:52] VITALS: BP 143/76; PULSE 81
--- NOTE | 2017-05-07 22:04 | EKG ---
Test Reason : Blood Pressure : / mmHG Vent. Rate : 086 BPM Atrial Rate : 086 BPM P-R Int : 158 ms QRS Dur : 122 ms QT Int : 412 ms P-R-T Axes : 035 -07 049 degrees QTc Int : 493 ms NORMAL SINUS RHYTHM LEFT BUNDLE BRANCH BLOCK ABNORMAL ECG WHEN COMPARED WITH ECG OF 24-JAN-2017 00:06, T WAVE INVERSION NO LONGER EVIDENT IN LATERAL LEADS Confirmed by DEIDRE DOMINGUEZ MD ([id number]) on 05/07/2017 10:04:07 PM Referred By: Confirmed By:DEIDRE DOMINGUEZ MD
== END 2017-05-05 15:28 | disposition home or self-care (01) ==
LOC: JER 11:31
PROC: 3E0337Z Introduction of Electrolytic and Water Balance Substance into Peripheral Vein, Percutaneous Approach (ICD-10-PCS; principal; 2017-05-05)
PROC: 3E033GC Introduction of Other Therapeutic Substance into Peripheral Vein, Percutaneous Approach (ICD-10-PCS; 2017-05-05)
DX: K21.9 Gastro-esophageal reflux disease without esophagitis (principal); K80.20 Calculus of gallbladder without cholecystitis without obstruction; I10 Essential (primary) hypertension; E11.9 Type 2 diabetes mellitus without complications; Z79.84 Long term (current) use of oral hypoglycemic drugs; E78.00 Pure hypercholesterolemia, unspecified; Z85.3 Personal history of malignant neoplasm of breast
CPT/HCPCS: 36415; 80053; 82550; 83690; 84484; 85025; 93005; 93010; 96361; 96374; 99284-25

== ENCOUNTER 2017-05-29 09:03 | Observation (INO) | payer OTHER ==
[2017-05-29] MEDS ORDERED: MAG HYDROX/AL HYDROX/SIMETH 355 ML ORAL.SUSP PO ONE (10:00)
[2017-05-29] MEDS ORDERED: ASPIRIN 81 MG CHEWABLE TABLETS PO ONE (10:00)
[2017-05-29] MEDS ORDERED: FAMOTIDINE 20 MG/50 ML IVPB 20 MG/50 ML MG IVPB ONE ×2 (10:32→23:51)
[2017-05-29] MEDS ORDERED: MAG HYDROX/AL HYDROX/SIMETH 30 ML UNIT-DOSE CUP ONE (10:32)
[2017-05-29] MEDS ORDERED: ASPIRIN 81 MG CHEWABLE TABLETS ONE (10:32)
--- NOTE | 2017-05-29 10:35 | PDOC ---
History of Present Illness - General History Source: Patient Exam Limitations: No Limitations - History of Present Illness Initial Comments: 05/29/17 11:14 The patient is a 76 year old female with a significant PMH of diabetes, hypertension, hyperlipidemia, spinal stenosis, and breast cancer (in remission) who presents to the emergency department with epigastric burning since approximately 2AM this morning. The patient describes the epigastric burning as constant with associated nausea, 1 episode of non-bloody, non-bilious vomit and constipation. The patient states the epigastaric burning is not worsened by exertion or food consumption. The patient notes her last meal was yesterday at about 5PM. The patient states she was here on 05/05/17 for similar epigastric symptoms. She reports she has been evaluated previously and told she had gall stones. The patient reports she last saw Dr. Fuentes for a routine colonoscopy about 6 months ago. The patient denies leg swelliing, chest pain, shortness of breath, headache and dizziness. Denies fever, chills, nausea, vomit, and diarrhea. Denies dysuria, frequency, urgency and hematuria. Allergies: NKA Past surgical history: None reported. Social history: No reported alcohol, cigarette, or drug use. PCP: Aaron Junior GI: Dr. Fuentes <January Hwang - Last Filed: 05/29/17 11:14> <Douglas Harris - Last Filed: 05/29/17 17:23> - General Chief Complaint: Pain, Acute Stated Complaint: CHEST PAIN, ABD PAIN Time Seen by Provider: 05/29/17 09:59 Past History <January Hwang - Last Filed: 05/29/17 11:14> - Past Medical History Anemia: No Asthma: No Cancer: Yes (Rt breast 02/08) Cardiac Disorders: No CVA: No COPD: No CHF: No Dementia: No Diabetes: Yes (NIDM) GI Disorders: Yes (Constipation) Disorders: No HTN: Yes Hypercholesterolemia: Yes Liver Disease: No Seizures: No Thyroid Disease: No - Surgical History Abdominal Surgery: No Appendectomy: No Cardiac Surgery: No Cholecystectomy: No Lung Surgery: No Neurologic Surgery: No Orthopedic Surgery: No - Immunization History Immunization Up to Date: No - Suicide/Smoking/Psychosocial Hx Smoking Status: No Smoking History: Never smoked Have you smoked in the past 12 months: No Number of Cigarettes Smoked Daily: 0 Information on smoking cessation initiated: No Hx Alcohol Use: No Drug/Substance Use Hx: No Substance Use Type: None Hx Substance Use Treatment: No <Douglas Harris - Last Filed: 05/29/17 17:23> - Past Medical History Allergies/Adverse Reactions: Allergies Allergy/AdvReac Type Severity Reaction Status Date / Time No Known Drug Allergies Allergy Verified 05/29/17 09:21 Home Medications: Ambulatory Orders Aspirin 81 mg PO DAILY 05/05/17 Atorvastatin Ca [Lipitor] 40 mg PO HS 05/05/17 Losartan Potassium 25 mg PO DAILY 05/05/17 Metformin HCl [Metformin HCl ER] 1,000 mg PO BID 05/05/17 Metoprolol Succinate [Toprol Xl] 50 mg PO DAILY 05/05/17 Nifedipine [Procardia Xl] 30 mg PO DAILY 05/05/17 Tamoxifen Citrate 20 mg PO DAILY 05/05/17 Review of Systems - Review of Systems Able to Perform ROS?: Yes Comments:: 05/29/17 11:15 CONSTITUTIONAL: No reported: Fever, Chills, Diaphoresis, Generalized Weakness, Malaise, Loss of Appetite HEENT: No reported: Rhinorrhea, Nasal Congestion, Throat Pain, Throat Swelling, Difficulty Swallowing, Mouth Swelling, Ear Pain, Eye Pain, Visual Changes CARDIOVASCULAR: No reported: Chest Pain, Syncope, Palpitations, Irregular Heart Rate, Lightheadedness, Peripheral Edema RESPIRATORY: No reported: Cough, Shortness of Breath, SOB with Exertion, Orthopnea, Wheezing , Stridor, Hemoptysis GASTROINTESTINAL: No reported: Abdominal Distension, Diarrhea, Melena, Hematochezia Reported: Epigatric pain. Nausea. Vomiting. Constipation. GENITOURINARY: No reported: Dysuria, Frequency, Urgency, Hesitancy, Flank Pain, Genital Pain MUSCULOSKELETAL: No reported: Myalgia, Arthralgia, Joint Swelling, Back pain, Neck Pain SKIN: No reported: Rash, Itching, Pallor HEMEATOLOGIC/IMMUNOLOGIC: No reported: Easy Bleeding, Easy Bruising, Lymphadenopathy, Frequent infections ENDOCRINE: No reported: Unexplained Weight Gain, Unexplained Weight Loss, Heat Intolerance , Cold Intolerance NEUROLOGIC: No reported: Headache, Focal Weakness, Paresthesias, Vertigo, Lightheadedness, Unsteady Gait, Seizure, Mental Status Changes, Incontinence PSYCHIATRIC: No reported: Anxiety, Depression <Eri,January - Last Filed: 05/29/17 11:14> *Physical Exam - Vital Signs Last Vital Signs Temp Pulse Resp BP Pulse Ox 99.1 F 91 H 16 126/79 98 05/29/17 09:21 05/29/17 09:21 05/29/17 09:21 05/29/17 09:21 05/29/17 09:21 - Physical Exam Comments: 05/29/17 11:16 GENERAL: The patient is awake, alert, and fully oriented, Nontoxic - in no acute distress. HEAD: Normocephalic, atraumatic. EYES: extraocular movements intact, sclera anicteric, conjunctiva clear. ENT: Normal voice, Moist mucous membranes. NECK: Normal range of motion, supple LUNGS: Breath sounds equal, clear to auscultation bilaterally. No wheezes, no rhonchi, no rales. HEART: Regular rate and rhythm, without murmur, rub or gallop. ABDOMEN: (+) Mild epigastric tenderness. Soft, normoactive bowel sounds. No guarding, no rebound.No CVA tenderness EXTREMITIES: Normal range of motion, no edema. No clubbing or cyanosis. No cords, erythema, or tenderness. NEUROLOGICAL: No facial assymetry, Normal speech, PSYCH: Normal mood, normal affect. SKIN: Warm, Dry, normal turgor, <January Hwang - Last Filed: 05/29/17 11:14> - Vital Signs Last Vital Signs Temp Pulse Resp BP Pulse Ox 99.1 F 91 H 16 126/79 98 05/29/17 09:21 05/29/17 09:21 05/29/17 09:21 05/29/17 09:21 05/29/17 09:21 <Douglas Harris - Last Filed: 05/29/17 17:23> Heart Score/ECG Review - ECG Impressions Comment:: 05/29/17 10:40 Twelve-lead EKG was performed and reviewed by me. There is normal sinus rhythm with a normal rate. rate of 94 left axis devaition abnormal r wave progression LBBB fro prior ekg has since sresolved <Douglas Harris - Last Filed: 05/29/17 17:23> ED Treatment Course - LABORATORY CBC & Chemistry Diagram: 05/29/17 10:30 05/29/17 10:30 - ADDITIONAL ORDERS Additional order review: Laboratory Results 05/29/17 10:30 Urine Color Ltyellow Urine Appearance Clear Urine pH 5.0 Ur Specific [place] 1.020 Urine Protein Negative Urine Glucose (UA) 3+ H Urine Ketones Trace H Urine Blood Negative Urine Nitrite Negative Urine Bilirubin Negative Urine Urobilinogen Negative Ur Leukocyte Esterase 1+ H 05/29/17 10:30 RBC 4.49 MCV 88.0 MCHC 32.4 RDW 13.3 MPV 8.6 Neutrophils % 75.7 Lymphocytes % 14.8 Monocytes % 7.0 Eosinophils % 1.5 Basophils % 1.0 - Medications Given in the ED: ED Medications Discontinued Medications Generic Name Dose Route Start Last Admin Trade Name Adriano PRN Reason Stop Dose Admin Al Hydroxide/Mg Hydroxide 30 ml 05/29/17 10:00 05/29/17 10:39 Mylanta Suspension - PO 05/29/17 10:01 30 ml ONCE ONE Administration Aspirin 162 mg 05/29/17 10:00 05/29/17 10:39 Asa - PO 05/29/17 10:01 162 mg ONCE ONE Administration <EriJanuary - Last Filed: 05/29/17 11:14> - LABORATORY CBC & Chemistry Diagram: 05/29/17 10:30 05/29/17 14:10 - RADIOLOGY Radiology Studies Ordered: Category Date Time Status CHEST X-RAY PORTABLE* [RAD] Stat Radiology 05/29/17 10:00 Ordered <Douglas Harris - Last Filed: 05/29/17 17:23> Medical Decision Making - Medical Decision Making 05/29/17 10:35 76y F hx of IDDM, HTN, HLD, breast cancer in remission, hx of gall stones, preents with complaints of epigastric burning since this 2am this morning that is constant with associated nausea without associated fever/chills, diarrhea, bpr, coffee ground emesis. Pt notes last episode of pain was 3 weeks ago and was similar. on exam pt with mild epigastric tenderness without rebound/ guarding. ddx includes gastritis/gerd, pancreatitis, acs, consider gb pathology will ck cbc, cmp, lipase, ua will give pepcid/maalox asa ekg cxr will reassess A portion of this note was documented by scribe services under my direction. I have reviewed the details of the note, within reason, and agree with the documentation with the following case summary and management plan written by me 05/29/17 11:42 the pts burning is improved, but now complaining of lower abdominal pain and nauea pts ekg also noted for pseudonormalization of her LBBB cardiac enzymes pending. will d/w dr. anderson 05/29/17 15:[address] anderson, suspects possible rate related cause of her LBBB last stress was in 04/14, that was normal for evaluation routine workup - would feel comfortable with 3rd set if she was feeling fine otherwise. pt still with lower abd pain, will obtian CT abdomen to r/o pathology, still vomiting will put pt in short stay observation hospitalist notified 05/29/17 17:[address] carrion agreed with observation <Douglas Harris - Last Filed: 05/29/17 17:23> *DC/Admit/Observation/Transfer - Attestations Scribe Attestion: 05/29/17 11:16 Documentation prepared by January Hwang, acting as back office medical assistant for Douglas Harris MD. <January Hwang - Last Filed: 05/29/17 11:14> - Discharge Dispostion Admit: Yes <Douglas Harris - Last Filed: 05/29/17 17:23> Diagnosis at time of Disposition: Chest pain Qualifiers: Chest pain type: unspecified Qualified Code(s): R07.9 - Chest pain, unspecified Abdominal pain Qualifiers: Abdominal location: generalized Qualified Code(s): R10.84 - Generalized abdominal pain - Discharge Dispostion Condition at time of disposition: Guarded
[2017-05-29 10:38] LABS: EOS % 1.5 % (0-4.5); HEMATOCRIT 39.5 % (32.4-45.2); HEMOGLOBIN 12.8 GM/dL (10.7-15.3); LYMPH % 14.8 % (8-40); MCH 28.5 pg (25.7-33.7); MCHC 32.4 g/dl (32.0-36.0); MEAN PLT VOLUME 8.6 fl (7.5-11.1); NEUT % 75.7 % (42.8-82.8); PLATELET COUNT 219 K/MM3 (134-434); RBC 4.49 M/mm3 (3.60-5.2); RDW 13.3 % (11.6-15.6); URINE APPEARANCE CLEAR; URINE BILIRUBIN NEGATIVE (NEGATIVE); URINE BLOOD NEGATIVE (NEGATIVE); URINE COLOR LTYELLOW; URINE GLUCOSE (UA) 3+ (NEGATIVE); URINE KETONE TRACE (NEGATIVE); URINE NITRITE NEGATIVE (NEGATIVE); URINE PROTEIN NEGATIVE (NEGATIVE); URINE UROBILINOGEN NEGATIVE mg/dL (0.2-1.0); WHITE BLOOD COUNT 9.8 K/mm3 (4.0-10.0)
[2017-05-29] MEDS: FAMOTIDINE IV 20 MG/12 ML VIAL IVPUSH SCH ×2 (10:39→23:00)
[2017-05-29 10:53] LABS: URINE LEUK ESTERASE 1+ (NEGATIVE)
[2017-05-29 10:54] LABS: EPI CELLS FEW /HPF (FEW)
[2017-05-29] MEDS ORDERED: DOCUSATE SODIUM 100 MG CAPSULE (FP) PO ONE ×2 (11:04→11:19)
[2017-05-29] MEDS ORDERED: morphine CARPU-JECT 2 MG/1 ML DISP.SYRIN IVPUSH ONE (11:39)
[2017-05-29] MEDS ORDERED: POLYETHYLENE GLYCOL 3350 119 GM BTL PO ONE (11:39)
[2017-05-29] MEDS ORDERED: MORPHINE SULFATE 10 MG/1 ML *VIAL ONE (11:41)
[2017-05-29] MEDS ORDERED: ONDANSETRON 4 MG/2 ML VIAL IVPB ONE (11:42)
[2017-05-29] MEDS ORDERED: ONDANSETRON 4 MG/2 ML VIAL ONE (11:43)
[2017-05-29 11:54] LABS: ALBUMIN 3.7 g/dl (3.4-5.0); ANION GAP 12 (8-16); BILIRUBIN,TOTAL 0.4 mg/dL (0.2-1.0); BLOOD UREA NITROGEN 10 mg/dL (7-18); CALCIUM 8.9 mg/dL (8.5-10.1); CHLORIDE 101 mmol/L (98-107); CO2 24 mmol/L (21-32); LIPASE 177 U/L (73-393); SGPT/ALT 18 U/L (12-78); SODIUM 137 mmol/L (136-145); TOT PROT 7.4 g/dl (6.4-8.2)
[2017-05-29 11:55] LABS: ALK PHOS 66 U/L (45-117)
[2017-05-29 12:00] LABS: GLUCOSE,RANDOM 320 mg/dL (74-106); POTASSIUM 4.5 mmol/L (3.5-5.1); SGOT/AST 24 U/L (15-37)
[2017-05-29] MEDS ORDERED: HYDROmorphone HCL CARPU-JECT 2 MG/1 ML DISP.SYRIN IVPUSH ONE (13:10)
[2017-05-29] MEDS ORDERED: HYDROmorphone HCL CARPU-JECT 2 MG/1 ML DISP.SYRIN ONE (13:17)
--- NOTE | 2017-05-29 13:50 | EKG ---
Test Reason : Blood Pressure : / mmHG Vent. Rate : 094 BPM Atrial Rate : 094 BPM P-R Int : 144 ms QRS Dur : 084 ms QT Int : 360 ms P-R-T Axes : 047 -33 055 degrees QTc Int : 450 ms NORMAL SINUS RHYTHM LEFT AXIS DEVIATION MODERATE VOLTAGE CRITERIA FOR LVH, MAY BE NORMAL VARIANT ABNORMAL ECG WHEN COMPARED WITH ECG OF 05-MAY-2017 13:42, LEFT BUNDLE BRANCH BLOCK IS NO LONGER PRESENT Confirmed by MD YEYO, CRIS ([id number]) on 05/29/2017 1:50:07 PM Referred By: Confirmed By:CIRS ORONA MD
[2017-05-29] MEDS ORDERED: SUCRALFATE 1 GM/10 ML UNIT DOSE CUPS PO ONE (14:32)
[2017-05-29] MEDS ORDERED: SUCRALFATE 1 GM TABLET (FP) ONE (14:34)
[2017-05-29 15:02] LABS: ALBUMIN 3.7 g/dl (3.4-5.0); ANION GAP 10 (8-16); BILIRUBIN,TOTAL 0.3 mg/dL (0.2-1.0); BLOOD UREA NITROGEN 10 mg/dL (7-18); CALCIUM 8.5 mg/dL (8.5-10.1); CHLORIDE 106 mmol/L (98-107); CO2 25 mmol/L (21-32); CREATININE 0.9 mg/dL (0.55-1.02); POTASSIUM 4.9 mmol/L (3.5-5.1); SGPT/ALT 16 U/L (12-78); SODIUM 141 mmol/L (136-145)
--- NOTE | 2017-05-29 15:11 | EKG ---
Test Reason : Blood Pressure : / mmHG Vent. Rate : 083 BPM Atrial Rate : 083 BPM P-R Int : 148 ms QRS Dur : 084 ms QT Int : 372 ms P-R-T Axes : 044 -30 043 degrees QTc Int : 437 ms NORMAL SINUS RHYTHM LEFT AXIS DEVIATION MINIMAL VOLTAGE CRITERIA FOR LVH, MAY BE NORMAL VARIANT ABNORMAL ECG WHEN COMPARED WITH ECG OF 29-MAY-2017 09:11, COMPARED TO EKG NO SIGNIFICANT CHANGE IS FOUND Confirmed by MD YEYO, CRIS ([id number]) on 05/29/2017 3:11:29 PM Referred By: Confirmed By:CRIS ORONA MD
[2017-05-29 15:12] LABS: GLUCOSE,RANDOM 311 mg/dL (74-106)
[2017-05-29 15:45] LABS: ALK PHOS 62 U/L (45-117); SGOT/AST 11 U/L (15-37)
[2017-05-29] MEDS ORDERED: METOCLOPRAMIDE HCL INJECTION 10 MG/2 ML VIAL IVPUSH ONE (15:55)
[2017-05-29] MEDS ORDERED: SODIUM CHLORIDE 500 ML IV STA (15:56)
[2017-05-29] MEDS ORDERED: METOCLOPRAMIDE HCL INJECTION 10 MG/2 ML VIAL ONE (15:56)
[2017-05-29] MEDS ORDERED: SODIUM CHLORIDE 1,000 ML IV ONE (15:56)
[2017-05-29 18:17] VITALS: BMI 25.4
[2017-05-30] MEDS ORDERED: ACETAMINOPHEN 325 MG TABLET (FP) PO PRN ×2 (01:01→01:11)
[2017-05-30] MEDS: INSULIN SLIDING SCALE (NOVOLOG) 1 VIAL SQ SCH ×4 (06:20→21:30)
[2017-05-30] MEDS: metFORMIN HCL 500 MG TABLET (FP) PO SCH ×2 (06:20→17:57)
[2017-05-30] MEDS ORDERED: sitaGLIPtin PHOSPHATE 100 MG TABLET (FP) PO SCH (07:00)
[2017-05-30] MEDS ORDERED: INSULIN SLIDING SCALE (NOVOLOG) 1 VIAL SQ SCH (07:00)
--- NOTE | 2017-05-30 08:46 | CON.CARD ---
Cardiology Consult (text) - Consultation Consultation Note: IMP: Chronic rate related LBBB Likely GERD REC: GI eval To repeat Persantine MIBI (negative one year ago).
[2017-05-30] MEDS: FAMOTIDINE IV 20 MG/12 ML VIAL IVPUSH SCH (09:06)
--- NOTE | 2017-05-30 09:13 | CONS ---
DATE OF CONSULTATION: 05/30/2017 CONSULTATION REQUESTED BY: Justine Walker MD REASON FOR CONSULTATION: Epigastric/chest pain. The patient is a 76-year-old female known to our service from the office. She has a past medical history of rate-related left bundle branch block, breast cancer status post mastectomy on hormonal therapy, diabetes, hypertension, hyperlipidemia, who presented to the ER with epigastric burning following eating spicy sausage. She denies chest pains, shortness of breath, palpitations, PND, orthopnea. She does have a rate-related left bundle branch block which has been known for some time. She underwent a nuclear stress test last year which was unremarkable. She was admitted for rule out CT and for GI consultation. Cardiac enzymes are negative. She denies exertional chest pain, shortness of breath, palpitations, PND, orthopnea. ALLERGIES: She has no known drug allergies. SOCIAL HISTORY: She is a nonsmoker. CURRENT MEDICATIONS: Include Tylenol 650 q.6 p.r.n., aspirin 81 daily, Lipitor 40 at bedtime, Pepcid, insulin, metformin, losartan 25 daily, Procardia XL 30 daily, Protonix 40 daily, Januvia, and tamoxifen. PHYSICAL EXAMINATION: Vital Signs: She is in no distress with low-grade temperature of 100.3, pulse 96, blood pressure 130/60. Influenza was negative. Blood cultures are pending. HEENT: She is anicteric. Neck: No bruits. Heart: S1, S2 regular. Chest: Clear. Abdomen: Soft, nontender. No rebound or guarding. Extremities: No edema. LABORATORY: Urinalysis shows 18 white cells, 1+ leukocyte esterase. White count 9.8, hematocrit 39.5, platelets 219. Sodium 141, potassium 4.9, creatinine 0.9. CK and troponin are negative x3 sets. IMPRESSION: 1. Epigastric discomfort, probably gastroesophageal reflux disease. 2. Low-grade temperature with positive urinalysis, probable urinary tract infection. 3. Doubt cardiac. Patient was admitted to telemetry floor by the emergency room for concern for cardiac chest pain. Her left bundle branch block appears to be rate related and is chronic. RECOMMENDATIONS: 1. Treatment of probable UTI as per PMD. 2. GI consultation. 3. Will repeat stress test. If negative, may be discharged from the telemetry floor. Further workup of epigastric pain and probable UTI as per PMD. Thank you for the consultation. Marianela [id number] MTDD
[2017-05-30] MEDS ORDERED: PATIENT'S OWN MEDICATION (NON-FORMULARY) (Linagliptin/Metformin Hcl [Jentadueto 2.5 Mg-100 PO SCH (10:00)
[2017-05-30] MEDS ORDERED: TAMOXIFEN CITRATE 10 MG TABLET PO SCH (10:00)
[2017-05-30] MEDS ORDERED: PANTOPRAZOLE 40 MG TABLET (FP) PO SCH ×2 (10:00→22:00)
[2017-05-30] MEDS ORDERED: NIFEdipine E.R. 30 MG TABLET (FP) PO SCH (10:00)
[2017-05-30] MEDS ORDERED: LOSARTAN POTASSIUM 25 MG TABLET PO SCH (10:00)
[2017-05-30] MEDS ORDERED: ASPIRIN 81 MG CHEWABLE TABLETS PO SCH (10:00)
[2017-05-30] MEDS ORDERED: REGADENOSON 0.4 MG/5 ML PRE-FILLED SYRINGE IVPUSH ONE ×2 (10:45→11:50)
[2017-05-30] MEDS ORDERED: METOPROLOL TARTRATE 5 MG/5 ML VIAL IVPUSH ONE (12:00)
[2017-05-30] MEDS ORDERED: METOPROLOL TARTRATE 5 MG/5 ML VIAL ONE (12:46)
[2017-05-30] MEDS ORDERED: PT OWN MED DRAWER 7, Y5N ONE ×2 (13:39→13:41)
--- NOTE | 2017-05-30 14:19 | HP ---
Admitting History and Physical - Past Medical History Cardiovascular: Yes: HTN, Hyperlipdemia Gastrointestinal: Yes: Other (chronic conspitation, nausea) Renal/: Yes: UTI Heme/Onc: Yes: Cancer (Breast cancer) Infectious Disease: Yes: Other (Recurrent UTI) Endocrine: Yes: Diabetes Mellitus - Past Surgical History Past Surgical History: Yes: Mastectomy - Smoking History Smoking history: Never smoked Have you smoked in the past 12 months: No Aproximately how many cigarettes per day: 0 - Alcohol/Substance Use Hx Alcohol Use: No History of Substance Use: reports: None - Social History ADL: Family Assistance History of Recent Travel: No Home Medications - Allergies Allergies/Adverse Reactions: Allergies Allergy/AdvReac Type Severity Reaction Status Date / Time No Known Drug Allergies Allergy Verified 05/29/17 09:21 - Home Medications Home Medications: Ambulatory Orders Aspirin 81 mg PO DAILY 05/05/17 Atorvastatin Ca [Lipitor] 40 mg PO HS 05/05/17 Losartan Potassium 25 mg PO DAILY 05/05/17 Metoprolol Succinate [Toprol Xl] 50 mg PO DAILY 05/05/17 Nifedipine [Procardia Xl] 30 mg PO DAILY 05/05/17 Tamoxifen Citrate 20 mg PO DAILY 05/05/17 Linagliptin/Metformin HCl [Jentadueto 2.5 mg-1000 mg Tab] 1 each PO BID Physical Examination Vital Signs: Vital Signs Temperature 100.2 F H 05/30/17 14:02 Pulse Rate 96 H 05/30/17 14:02 Respiratory Rate 18 05/30/17 14:02 Blood Pressure 123/60 05/30/17 14:02 O2 Sat by Pulse Oximetry (%) 98 05/30/17 09:00 Labs: CBC, BMP 05/29/17 10:30 05/29/17 14:10
--- NOTE | 2017-05-30 19:23 | CON.GI ---
Consult Consult Specialty:: GI Referred by:: Dr Walker/José Denis - History of Present Illness Chief Complaint: severe heart rayo History of Present Illness: 76 y/o male was admittes because of atypica chest pain associated mildle elevated tropinin, negative stress, severe heartburns and early satiety - Past Medical History Cardio/Vascular: Yes: HTN, Hyperlipdemia Gastrointestinal: Yes: Other (chronic conspitation, nausea) Renal/: Yes: UTI Infectious Disease: Yes: Other (Recurrent UTI) Endocrine: Yes: Diabetes Mellitus - Past Surgical History Past Surgical History: Yes: Mastectomy - Alcohol/Substance Use Hx Alcohol Use: No History of Substance Use: reports: None - Smoking History Smoking history: Never smoked Have you smoked in the past 12 months: No Aproximately how many cigarettes per day: 0 - Social History ADL: Family Assistance History of Recent Travel: No Home Medications - Allergies Allergies/Adverse Reactions: Allergies Allergy/AdvReac Type Severity Reaction Status Date / Time No Known Drug Allergies Allergy Verified 05/29/17 09:21 - Home Medications Home Medications: Ambulatory Orders Aspirin 81 mg PO DAILY 05/05/17 Atorvastatin Ca [Lipitor] 40 mg PO HS 05/05/17 Losartan Potassium 25 mg PO DAILY 05/05/17 Metoprolol Succinate [Toprol Xl] 50 mg PO DAILY 05/05/17 Nifedipine [Procardia Xl] 30 mg PO DAILY 05/05/17 Tamoxifen Citrate 20 mg PO DAILY 05/05/17 Linagliptin/Metformin HCl [Jentadueto 2.5 mg-1000 mg Tab] 1 each PO BID Physical Exam-GI Vital Signs: Vital Signs Temperature 98.9 F 05/30/17 17:00 Pulse Rate 85 05/30/17 17:00 Respiratory Rate 18 05/30/17 17:00 Blood Pressure 102/51 05/30/17 17:00 O2 Sat by Pulse Oximetry (%) 98 05/30/17 09:00 Constitutional: Yes: Well Nourished, Poor Hygeine HENT: Yes: Atraumatic, Tonsillar Exudate Neck: Yes: Tenderness Cardiovascular: Yes: Other ...Palpate: Yes: Soft. No: Firm/Rigid, Guarding, Hepatomegaly, Mass, Pulsatile Mass, Splenomegaly, Tenderness Labs: CBC, BMP 05/29/17 10:30 01/30/18 14:10 Problem List - Problems (1) GERD (gastroesophageal reflux disease) Assessment/Plan: R> Reglan 5mg 30 min ac Protonix 40mg bid for 6 weeks Code(s): K21.9 - GASTRO-ESOPHAGEAL REFLUX DISEASE WITHOUT ESOPHAGITIS Qualifiers: Esophagitis presence: esophagitis presence not specified Qualified Code(s) : K21.9 - Gastro-esophageal reflux disease without esophagitis
[2017-05-30 20:13] VITALS: BP 93/43; PULSE 88; TEMP 100
--- NOTE | 2017-05-30 21:32 | DS ---
Physical Examination Vital Signs: Vital Signs Temperature 100.0 F H 05/30/17 20:10 Pulse Rate 88 05/30/17 20:10 Respiratory Rate 18 05/30/17 20:10 Blood Pressure 93/43 05/30/17 20:10 O2 Sat by Pulse Oximetry (%) 98 05/30/17 20:10 Labs: CBC, BMP 05/29/17 10:30 05/29/17 14:10 Discharge Summary Reason For Visit: ABD PAIN,CHEST PAIN Current Active Problems Abdominal pain (Acute) Chest pain (Acute) Condition: Good - Instructions Diet, Activity, Other Instructions: 2200 calorie diabetic diet 2 gram sodium diet see Dr Denis in 2 days Referrals: José Denis MD [Primary Care Provider] - Disposition: HOME - Home Medications Comprehensive Discharge Medication List: Ambulatory Orders Aspirin 81 mg PO DAILY 05/05/17 Atorvastatin Ca [Lipitor] 40 mg PO HS 05/05/17 Losartan Potassium 25 mg PO DAILY 05/05/17 Metoprolol Succinate [Toprol Xl] 50 mg PO DAILY 05/05/17 Nifedipine [Procardia Xl] 30 mg PO DAILY 05/05/17 Tamoxifen Citrate 20 mg PO DAILY 05/05/17 Linagliptin/Metformin HCl [Jentadueto 2.5 mg-1000 mg Tab] 1 each PO BID Acetaminophen [Tylenol .Regular Strength -] 650 mg PO Q6H PRN tablet 05/30/17 Metoclopramide HCl [Reglan -] 5 mg PO TIDAC tablet 05/30/17 Pantoprazole Sodium [Protonix -] 40 mg PO BID tablet.ec 05/30/17 Pantoprazole Sodium [Protonix -] 40 mg PO DAILY tablet.ec 05/30/17 Sitagliptin Phosphate [Januvia -] 100 mg PO DAILY@0700 ud 05/30/17
[2017-05-30] MEDS ORDERED: ATORVASTATIN CA 40 MG TABLET (FP) PO SCH (22:00)
[2017-05-31] MEDS ORDERED: METOCLOPRAMIDE HCL 10 MG TABLET (FP) PO SCH (07:00)
== END 2017-05-30 22:30 | disposition home or self-care (01) ==
LOC: JER 09:03 → JERBED 16:21 → J4W 05-30 00:44
PROVIDERS: ADMIT Internal Medicine; ATTEND Internal Medicine
PROC: 3E033NZ Introduction of Analgesics, Hypnotics, Sedatives into Peripheral Vein, Percutaneous Approach (ICD-10-PCS; principal; 2017-05-29)
PROC: 3E033GC Introduction of Other Therapeutic Substance into Peripheral Vein, Percutaneous Approach (ICD-10-PCS; 2017-05-29)
PROC: 3E0337Z Introduction of Electrolytic and Water Balance Substance into Peripheral Vein, Percutaneous Approach (ICD-10-PCS; 2017-05-29)
DX: R07.9 Chest pain, unspecified (principal); R10.84 Generalized abdominal pain; K21.9 Gastro-esophageal reflux disease without esophagitis; I44.7 Left bundle-branch block, unspecified; I10 Essential (primary) hypertension; E78.5 Hyperlipidemia, unspecified; E11.9 Type 2 diabetes mellitus without complications; M48.00 Spinal stenosis, site unspecified; Z85.3 Personal history of malignant neoplasm of breast; Z79.82 Long term (current) use of aspirin; Z79.84 Long term (current) use of oral hypoglycemic drugs; Z87.440 Personal history of urinary (tract) infections
CPT/HCPCS: 36415; 71045-TC; 74177-TC; 76705-TC; 78452-TC; 80053; 81003; 81015; 82550; 82962; 83690; 84443; 84484; 85025; 87040; 87086; 87186; 87804; 93005; 93010; 93017; 93306-TC; 96360; 96374; 96375; 99285-25; A9502; G0378; J2785

== ENCOUNTER 2017-05-31 14:15 | Inpatient (IN) | payer OTHER ==
--- NOTE | 2017-05-31 14:20 | PDOC ---
Rapid Medical Evaluation Time Seen by Provider: 05/31/17 14:18 Medical Evaluation: Allergies Allergy/AdvReac Type Severity Reaction Status Date / Time No Known Drug Allergies Allergy Verified 05/31/17 14:17 05/31/17 14:19 76 year old female history of NIDDM, HTN, HLD, spinal stenosis, and breast ca (s /p right mastectomy, on Tamoxifen) recently admitted for heart burn/LUIS (dc'd ). Had T 100.9 on admission; was also treated for UTI. Discharged 05/30. Called today be Dr. Walker and notified of positive blood cultures (organism is pending). Continues to have low-grade fevers at home per daughter. V/s notable for P 102. -Repeat blood cultures -Sepsis labs -UA/culture -To Main ED for further evaluation Discharge Disposition - Referrals Referrals: José Denis MD [Primary Care Provider] - - Patient Instructions - Post Discharge Activity
[2017-05-31 14:53] LABS: BASO % 0.5 % (0-2.0); EOS % 1.6 % (0-4.5); HEMATOCRIT 37.8 % (32.4-45.2); HEMOGLOBIN 12.1 GM/dL (10.7-15.3); LYMPH % 10.4 % (8-40); MCH 28.8 pg (25.7-33.7); MCHC 32.1 g/dl (32.0-36.0); MEAN CELL VOLUME 89.6 fl (80-96); MEAN PLT VOLUME 8.9 fl (7.5-11.1); MONO % 7.3 % (3.8-10.2); NEUT % 80.2 % (42.8-82.8); PLATELET COUNT 236 K/MM3 (134-434); RBC 4.22 M/mm3 (3.60-5.2); RDW 13.9 % (11.6-15.6); WHITE BLOOD COUNT 16.8 K/mm3 (4.0-10.0)
[2017-05-31 15:06] LABS: INR 1.1 (0.82-1.09); PROTHROMBIN TIME (PATIENT) 12.4 SEC (9.98-11.88)
[2017-05-31 15:09] LABS: ACTIVATED PTT 28.8 SECONDS (26.9-34.4)
[2017-05-31 15:34] LABS: ALBUMIN 3.3 g/dl (3.4-5.0); ALK PHOS 65 U/L (45-117); ANION GAP 11 (8-16); BILIRUBIN,TOTAL 0.5 mg/dL (0.2-1.0); BLOOD UREA NITROGEN 10 mg/dL (7-18); CALCIUM 8.7 mg/dL (8.5-10.1); CHLORIDE 98 mmol/L (98-107); CO2 25 mmol/L (21-32); CREATININE 1.2 mg/dL (0.55-1.02); POTASSIUM 4.2 mmol/L (3.5-5.1); SGOT/AST 10 U/L (15-37); SGPT/ALT 14 U/L (12-78); SODIUM 134 mmol/L (136-145); TOT PROT 7.3 g/dl (6.4-8.2)
[2017-05-31 15:40] LABS: GLUCOSE,RANDOM 342 mg/dL (74-106)
[2017-05-31] MEDS ORDERED: SODIUM CHLORIDE 1,000 ML IV ONE (15:57)
[2017-05-31] MEDS ORDERED: VANCOMYCIN 1,000 MG in DEXTROSE 5%-WATER - 250 ML IVPB ONE (16:17)
--- NOTE | 2017-05-31 16:30 | PDOC ---
History of Present Illness - General History Source: Patient, Care Provider, Old Records Exam Limitations: No Limitations - History of Present Illness Initial Comments: 05/31/17 16:35 The patient is a 76 year old female with history of hypertension, hyperlipidemia , DM, breast CA s/p mastectomy, discharged from the hospital yesterday from an atypical chest pain admission who was called back to the ED for a positive blood culture. Hospital course was notable for urine WBC of 18 with +1 LE, CBC WBC of 9.8, and abdominal CT with evidence of cholelithiasis without cholecystitis. Unremarkable CXR. She was discharged yesterday but was called back today for abnormal blood cultures. She was noted to have lactate of 3.3 and WBC of 16 today. No fever today. She denies any physical complaints on evaluation. PCP: Dr. Walker GI: Dr. Fuentes <Chaya Villeda - Last Filed: 05/31/17 19:03> <Luke Real - Last Filed: 05/31/17 19:21> - General Chief Complaint: Revisit, Lab Variance Stated Complaint: + BL CX SENT BY PCP:ABNORMAL LABS Time Seen by Provider: 05/31/17 14:18 Past History <Chaya Villeda - Last Filed: 05/31/17 19:03> - Past Medical History Anemia: No Asthma: No Cancer: Yes (Rt breast 02/08) Cardiac Disorders: No CVA: No COPD: No CHF: No DVT: No Dementia: No Diabetes: Yes (NIDM) GI Disorders: Yes (Constipation) Disorders: No HTN: Yes Hypercholesterolemia: Yes Liver Disease: No Seizures: No Thyroid Disease: No - Surgical History Abdominal Surgery: No Appendectomy: No Cardiac Surgery: No Cholecystectomy: No Lung Surgery: No Neurologic Surgery: No Orthopedic Surgery: No - Immunization History Immunization Up to Date: No - Suicide/Smoking/Psychosocial Hx Smoking Status: No Smoking History: Never smoked Have you smoked in the past 12 months: No Number of Cigarettes Smoked Daily: 0 Information on smoking cessation initiated: No Hx Alcohol Use: No Drug/Substance Use Hx: No Substance Use Type: None Hx Substance Use Treatment: No <Luke Real - Last Filed: 05/31/17 19:21> - Past Medical History Allergies/Adverse Reactions: Allergies Allergy/AdvReac Type Severity Reaction Status Date / Time No Known Drug Allergies Allergy Verified 05/31/17 14:17 Home Medications: Ambulatory Orders Aspirin 81 mg PO DAILY 05/05/17 Atorvastatin Ca [Lipitor] 40 mg PO HS 05/05/17 Losartan Potassium 25 mg PO DAILY 05/05/17 Metoprolol Succinate [Toprol Xl] 50 mg PO DAILY 05/05/17 Nifedipine [Procardia Xl] 30 mg PO DAILY 05/05/17 Tamoxifen Citrate 20 mg PO DAILY 05/05/17 Linagliptin/Metformin HCl [Jentadueto 2.5 mg-1000 mg Tab] 1 each PO BID Acetaminophen [Tylenol .Regular Strength -] 650 mg PO Q6H PRN tablet 05/30/17 Metoclopramide HCl [Reglan -] 5 mg PO TIDAC tablet 05/30/17 Pantoprazole Sodium [Protonix -] 40 mg PO BID tablet.ec 05/30/17 Pantoprazole Sodium [Protonix -] 40 mg PO DAILY tablet.ec 05/30/17 Sitagliptin Phosphate [Januvia -] 100 mg PO DAILY@0700 ud 05/30/17 Review of Systems - Review of Systems Constitutional: No: Chills, Fever Respiratory: No: Cough, Shortness of Breath Cardiac (ROS): No: Chest Pain ABD/GI: No: Diarrhea, Vomiting : Yes: See HPI Neurological: No: Headache All Other Systems: Reviewed and Negative <Luke Real - Last Filed: 05/31/17 19:21> *Physical Exam - Vital Signs Last Vital Signs Temp Pulse Resp BP Pulse Ox 99.2 F 102 H 18 108/66 100 05/31/17 14:19 05/31/17 14:19 05/31/17 14:19 05/31/17 14:19 05/31/17 14:19 - Physical Exam Comments: 05/31/17 16:43 GENERAL: The patient is awake, alert, and fully oriented, in no acute distress. HEAD: Normal with no signs of trauma. EYES: Pupils equal, round and reactive to light, extraocular movements intact, sclera anicteric, conjunctiva clear with no pallor. ENT: Ears normal, nares patent, oropharynx clear without exudates. Moist mucous membranes. NECK: Normal range of motion, supple without lymphadenopathy, JVD, or masses. LUNGS: Breath sounds equal, clear to auscultation bilaterally. No wheeze/ crackles. HEART: +Mild tachycardia, regular rhythm, normal S1 and S2 without murmur or rub. ABDOMEN: Soft/nontender/nondistended. BS wnl. No guarding or rebound. No palpable masses. No hepatosplenomegaly. EXTREMITIES: Normal range of motion, no edema. No clubbing or cyanosis. No cords, erythema, or tenderness. NEUROLOGICAL: Cranial nerves II through XII grossly intact. Normal speech, gait deferred. PSYCH: Normal mood, normal affect. SKIN: Warm, Dry, normal turgor, no rashes or lesions noted. <Chaya Villeda - Last Filed: 05/31/17 19:03> - Vital Signs Last Vital Signs Temp Pulse Resp BP Pulse Ox 99.2 F 102 H 18 108/66 100 05/31/17 14:19 05/31/17 14:19 05/31/17 14:19 05/31/17 14:19 05/31/17 14:19 <Luke Real - Last Filed: 05/31/17 19:21> Heart Score/ECG Review #1 ECG reviewed & interpreted by me at: 19:00 05/31/17 19:03 EKG obtained 18:53. Sinus tachycardia at 103 bpm. LBBB. Abnormal EKG. <Chaya Villeda - Last Filed: 05/31/17 19:03> ED Treatment Course - LABORATORY CBC & Chemistry Diagram: 05/31/17 14:41 05/31/17 14:41 - ADDITIONAL ORDERS Additional order review: Laboratory Results 05/31/17 05/31/17 05/31/17 14:41 14:41 14:41 PT with INR 12.40 H INR 1.10 PTT (Actin FS) 28.8 Sodium 134 L Potassium 4.2 Chloride 98 Carbon Dioxide 25 Anion Gap 11 BUN 10 Creatinine 1.2 H Creat Clearance w eGFR 43.56 Random Glucose 342 H* Lactic Acid 3.3 H* Calcium 8.7 Total Bilirubin 0.5 D AST 10 L ALT 14 Alkaline Phosphatase 65 Total Protein 7.3 Albumin 3.3 L 05/31/17 14:41 RBC 4.22 MCV 89.6 MCHC 32.1 RDW 13.9 MPV 8.9 Neutrophils % 80.2 Lymphocytes % 10.4 D Monocytes % 7.3 Eosinophils % 1.6 Basophils % 0.5 <Chaya Villeda - Last Filed: 05/31/17 19:03> - LABORATORY CBC & Chemistry Diagram: 05/31/17 14:41 05/31/17 14:41 - ADDITIONAL ORDERS Additional order review: Laboratory Results 05/31/17 05/31/17 05/31/17 14:41 14:41 14:41 PT with INR 12.40 H INR 1.10 PTT (Actin FS) 28.8 Sodium 134 L Potassium 4.2 Chloride 98 Carbon Dioxide 25 Anion Gap 11 BUN 10 Creatinine 1.2 H Creat Clearance w eGFR 43.56 Random Glucose 342 H* Lactic Acid 3.3 H* Calcium 8.7 Total Bilirubin 0.5 D AST 10 L ALT 14 Alkaline Phosphatase 65 Total Protein 7.3 Albumin 3.3 L 05/31/17 14:41 RBC 4.22 MCV 89.6 MCHC 32.1 RDW 13.9 MPV 8.9 Neutrophils % 80.2 Lymphocytes % 10.4 D Monocytes % 7.3 Eosinophils % 1.6 Basophils % 0.5 <Luke Real - Last Filed: 05/31/17 19:21> Medical Decision Making - Medical Decision Making 05/31/17 16:28 A portion of this note was documented by scribe services under my direction. I have reviewed the details of the note, within reason, and agree with the documentation with the following case summary and management plan written by me. 76-year-old female recently admitted for atypical chest pain found to have UTI now called back secondary to positive blood cultures, aerobic bottle grew gram- positive cocci in clusters. Patient has been having low-grade fevers at home, otherwise feeling well. Mild tachycardia here, afebrile Exam is nonfocal 76-year-old female with positive blood culture, called back for reassessment. Nonseptic appearing, no focal infectious complaints or findings. Sepsis protocol was initiated Labs notable for white count of 16.8, up from 9 at discharge 2 days ago Lactate is 3.3 Cultures sent, urine pending We'll treat empirically with vancomycin given gram-positive growth in culture ( otherwise more suspicious for a contaminant) Case discussed with Dr. Walker, who accepts the patient for inpatient med surge and requests consult from Dr. Esqueda, which was ordered. 05/31/17 19:20 EKG with left bundle branch block and no secondary signs of acute ischemic change. Left bundle was previously seen on 05/07/17 EKG, though more recent EKGs did not have left bundle. <Luke Real - Last Filed: 05/31/17 19:21> *DC/Admit/Observation/Transfer - Attestations Scribe Attestion: 05/31/17 16:44 Documentation prepared by Chaya Villeda, acting as medical orderly for Luke Real MD. <Chaya Villeda - Last Filed: 05/31/17 19:03> - Discharge Dispostion Admit: Yes <Luke Real - Last Filed: 05/31/17 19:21> Diagnosis at time of Disposition: Blood bacterial culture positive - Discharge Dispostion Condition at time of disposition: Fair
--- NOTE | 2017-05-31 17:12 | CON.ID ---
Consult Consult Specialty:: infectious diseases Referred by:: Reason for Consultation:: positive blood cx - History of Present Illness Chief Complaint: fever and weakness History of Present Illness: 76 year old female with history of IDDM, htn, and breast cancer who is s/p a uti. patient was spiking low grade fevers,was worked up and had blood cultures positive with gram positive cocci. Patient denies dysuria, frequency, urgency, flank pain, gross hematuria, nausea/vomiting, pelvic pain or change of urinary pattern. accoridng tot he daughter patient has not been feeling well for couple of days she is c/o of some back pain - History Source History Provided By: Family Member Limitations to Obtaining History: Language Barrier - Past Medical History Cardio/Vascular: Yes: HTN, Hyperlipdemia Gastrointestinal: Yes: Other (chronic conspitation, nausea) Renal/: Yes: UTI Infectious Disease: Yes: Other (Recurrent UTI) Endocrine: Yes: Diabetes Mellitus - Past Surgical History Past Surgical History: Yes: Mastectomy - Alcohol/Substance Use Hx Alcohol Use: No History of Substance Use: reports: None - Smoking History Smoking history: Never smoked Have you smoked in the past 12 months: No Aproximately how many cigarettes per day: 0 - Social History ADL: Family Assistance History of Recent Travel: No Home Medications - Allergies Allergies/Adverse Reactions: Allergies Allergy/AdvReac Type Severity Reaction Status Date / Time No Known Drug Allergies Allergy Verified 05/31/17 14:17 - Home Medications Home Medications: Ambulatory Orders Aspirin 81 mg PO DAILY 05/05/17 Atorvastatin Ca [Lipitor] 40 mg PO HS 05/05/17 Losartan Potassium 25 mg PO DAILY 05/05/17 Metoprolol Succinate [Toprol Xl] 50 mg PO DAILY 05/05/17 Nifedipine [Procardia Xl] 30 mg PO DAILY 05/05/17 Tamoxifen Citrate 20 mg PO DAILY 05/05/17 Linagliptin/Metformin HCl [Jentadueto 2.5 mg-1000 mg Tab] 1 each PO BID Acetaminophen [Tylenol .Regular Strength -] 650 mg PO Q6H PRN tablet 05/30/17 Metoclopramide HCl [Reglan -] 5 mg PO TIDAC tablet 05/30/17 Pantoprazole Sodium [Protonix -] 40 mg PO BID tablet.ec 05/30/17 Pantoprazole Sodium [Protonix -] 40 mg PO DAILY tablet.ec 05/30/17 Sitagliptin Phosphate [Januvia -] 100 mg PO DAILY@0700 ud 05/30/17 Review of Systems - Review of Systems Constitutional: reports: Fever, Weakness Eyes: reports: No Symptoms HENT: reports: No Symptoms Neck: reports: No Symptoms Cardiovascular: reports: No Symptoms Respiratory: reports: No Symptoms Gastrointestinal: reports: No Symptoms Genitourinary: reports: No Symptoms Musculoskeletal: reports: No Symptoms Integumentary: reports: No Symptoms Neurological: reports: No Symptoms Endocrine: reports: No Symptoms Hematology/Lymphatic: reports: No Symptoms Psychiatric: reports: No Symptoms Physical Exam Vital Signs: Vital Signs Temperature 99.2 F 05/31/17 14:19 Pulse Rate 102 H 05/31/17 14:19 Respiratory Rate 18 05/31/17 14:19 Blood Pressure 108/66 05/31/17 14:19 O2 Sat by Pulse Oximetry (%) 100 05/31/17 14:19 Constitutional: Yes: Well Nourished, Calm, Mild Distress Eyes: Yes: Conjunctiva Clear Cardiovascular: Yes: Regular Rate and Rhythm Respiratory: Yes: Regular, CTA Bilaterally Gastrointestinal: Yes: Normal Bowel Sounds, Soft Musculoskeletal: Yes: WNL Extremities: Yes: WNL Neurological: Yes: Alert, Oriented Psychiatric: Yes: Alert, Oriented Labs: CBC, BMP 05/31/17 14:41 05/31/17 14:41 Assessment/Plan patient evaluated uti positive blood cx fever plan await for identification of the organism repeat blood and urine cx awaited vanco started rest as per the team
[2017-05-31] MEDS ORDERED: VANCOMYCIN 1 GRAM (PRE-DOCKED) 1,000 MG/250 ML BAG IVPB ONE (18:34)
[2017-05-31 19:06] LABS: URINE APPEARANCE CLEAR; URINE BILIRUBIN NEGATIVE (NEGATIVE); URINE BLOOD NEGATIVE (NEGATIVE); URINE COLOR STRAW; URINE GLUCOSE (UA) 3+ (NEGATIVE); URINE KETONE NEGATIVE (NEGATIVE); URINE LEUK ESTERASE NEGATIVE (NEGATIVE); URINE NITRITE NEGATIVE (NEGATIVE); URINE PROTEIN NEGATIVE (NEGATIVE); URINE UROBILINOGEN NEGATIVE mg/dL (0.2-1.0)
[2017-05-31] MEDS: ACETAMINOPHEN 325 MG TABLET (FP) PO PRN (21:45)
--- NOTE | 2017-05-31 22:07 | HP ---
Admitting History and Physical - Admission History of Present Illness: Pt is a 76 y/o female with PMH significant for IDDM, HTN, breast cancer and recurrent UTI's. Pt was having low grade temp and hospitalized however she then returned to ER after being called by me for (+) blood culture. Blood culture was (+) 1 bottle for gram positive cocci. In the ER however pt now found to have BWC of >16,oo and elevated lactic acid. - Past Medical History Cardiovascular: Yes: HTN, Hyperlipdemia Gastrointestinal: Yes: Other (chronic conspitation Choliathiasis) Renal/: Yes: UTI Heme/Onc: Yes: Cancer (Breast cancer) Infectious Disease: Yes: Other (Recurrent UTI) Endocrine: Yes: Diabetes Mellitus - Past Surgical History Past Surgical History: Yes: Mastectomy - Smoking History Smoking history: Never smoked Have you smoked in the past 12 months: No Aproximately how many cigarettes per day: 0 - Alcohol/Substance Use Hx Alcohol Use: No History of Substance Use: reports: None - Social History ADL: Family Assistance History of Recent Travel: No Home Medications - Allergies Allergies/Adverse Reactions: Allergies Allergy/AdvReac Type Severity Reaction Status Date / Time No Known Drug Allergies Allergy Verified 05/31/17 14:17 - Home Medications Home Medications: Ambulatory Orders Aspirin 81 mg PO DAILY 05/05/17 Atorvastatin Ca [Lipitor] 40 mg PO HS 05/05/17 Losartan Potassium 25 mg PO DAILY 05/05/17 Metoprolol Succinate [Toprol Xl] 50 mg PO DAILY 05/05/17 Nifedipine [Procardia Xl] 30 mg PO DAILY 05/05/17 Tamoxifen Citrate 20 mg PO DAILY 05/05/17 Linagliptin/Metformin HCl [Jentadueto 2.5 mg-1000 mg Tab] 1 each PO BID Acetaminophen [Tylenol .Regular Strength -] 650 mg PO Q6H PRN tablet 05/30/17 Metoclopramide HCl [Reglan -] 5 mg PO TIDAC tablet 05/30/17 Pantoprazole Sodium [Protonix -] 40 mg PO BID tablet.ec 05/30/17 Pantoprazole Sodium [Protonix -] 40 mg PO DAILY tablet.ec 05/30/17 Sitagliptin Phosphate [Januvia -] 100 mg PO DAILY@0700 ud 05/30/17 Family Disease History - Family Disease History Family History: Unremarkable Review of Systems - Review of Systems Constitutional: reports: Fever, Loss of Appetite, Weakness HENT: reports: No Symptoms Neck: reports: No Symptoms Cardiovascular: reports: No Symptoms Respiratory: reports: No Symptoms Gastrointestinal: reports: No Symptoms Genitourinary: reports: No Symptoms Physical Examination Vital Signs: Vital Signs Temperature 99.2 F 05/31/17 14:19 Pulse Rate 102 H 05/31/17 14:19 Respiratory Rate 18 05/31/17 14:19 Blood Pressure 108/66 05/31/17 14:19 O2 Sat by Pulse Oximetry (%) 100 05/31/17 14:19 Constitutional: Yes: No Distress Eyes: Yes: WNL HENT: Yes: WNL Neck: Yes: WNL, Supple Cardiovascular: Yes: WNL, Regular Rate and Rhythm Respiratory: Yes: WNL, Regular, CTA Bilaterally Gastrointestinal: Yes: WNL, Normal Bowel Sounds, Soft Musculoskeletal: Yes: WNL Extremities: Yes: WNL Edema: No Neurological: Yes: WNL, Alert, Oriented ...Motor Strength: WNL Labs: CBC, BMP 05/31/17 14:41 05/31/17 14:41 Problem List - Problems (1) Sepsis Assessment/Plan: Bacteremia: Blood culture was (+) for gram (+) cocci Pt w/ elevated lactic acid Cont to trend Cont IV antibxs/IVF ID consult Repeat BC Code(s): A41.9 - SEPSIS, UNSPECIFIED ORGANISM (2) Bacteremia Assessment/Plan: Repeat BC were sent Blood culture 1 bottle probable contaminant Code(s): R78.81 - BACTEREMIA (3) GERD (gastroesophageal reflux disease) Assessment/Plan: Cont protonix Code(s): K21.9 - GASTRO-ESOPHAGEAL REFLUX DISEASE WITHOUT ESOPHAGITIS Qualifiers: Esophagitis presence: esophagitis presence not specified Qualified Code(s) : K21.9 - Gastro-esophageal reflux disease without esophagitis (4) HTN (hypertension) Assessment/Plan: BP stable Cont meds Code(s): I10 - ESSENTIAL (PRIMARY) HYPERTENSION (5) Diabetes Assessment/Plan: Uncontrolled glucose Pt has been noncompliant w/ her meds Cont meds Cont sliding scale w/ coverage Code(s): E11.9 - TYPE 2 DIABETES MELLITUS WITHOUT COMPLICATIONS (6) History of breast cancer in female Assessment/Plan: Cont tamifoxen Code(s): Z85.3 - PERSONAL HISTORY OF MALIGNANT NEOPLASM OF BREAST
[2017-05-31] MEDS: SODIUM CHLORIDE 0.45% 1,000 ML IV SCH (22:47)
[2017-06-01 01:02] VITALS: BMI 26.2
[2017-06-01] MEDS: sitaGLIPtin PHOSPHATE 50 MG TABLET PO SCH (06:37)
[2017-06-01] MEDS: METOCLOPRAMIDE HCL 10 MG TABLET (FP) PO SCH ×3 (06:37→17:55)
[2017-06-01] MEDS: INSULIN SLIDING SCALE (NOVOLOG) 1 VIAL SQ SCH ×5 (06:38→21:59)
[2017-06-01] MEDS ORDERED: INSULIN (NOVOLOG) ASPART 100 UNITS/ML 10ML VIAL ONE (06:49)
[2017-06-01 08:20] LABS: ALBUMIN 2.6 g/dl (3.4-5.0); ANION GAP 8 (8-16); BLOOD UREA NITROGEN 7 mg/dL (7-18); CALCIUM 7.7 mg/dL (8.5-10.1); CHLORIDE 104 mmol/L (98-107); CO2 25 mmol/L (21-32); CREATININE 0.9 mg/dL (0.55-1.02); GLUCOSE,RANDOM 196 mg/dL (74-106); POTASSIUM 3.7 mmol/L (3.5-5.1); SGOT/AST 7 U/L (15-37); SGPT/ALT 11 U/L (12-78); SODIUM 137 mmol/L (136-145)
[2017-06-01 08:21] LABS: ALK PHOS 52 U/L (45-117); BILIRUBIN,TOTAL 0.6 mg/dL (0.2-1.0); TOT PROT 5.7 g/dl (6.4-8.2)
--- NOTE | 2017-06-01 08:21 | CON.GU ---
Consult Consult Specialty:: urology Reason for Consultation:: uti - History of Present Illness Chief Complaint: uti with positive blood cultures History of Present Illness: Patient is a 76 year old female with history of IDDM, htn, and breast cancer who is s/p a uti. Patient had blood cultures positive with gram positive cocci. Patient denies dysuria, frequency, urgency, flank pain, gross hematuria , nausea/vomiting, pelvic pain or change of urinary pattern. The patient is comfortable and on IV vancomycin. - History Source History Provided By: Patient, Family Member, Medical Record Limitations to Obtaining History: No Limitations - Past Medical History Cardio/Vascular: Yes: HTN, Hyperlipdemia Gastrointestinal: Yes: Other (chronic conspitation, nausea) Renal/: Yes: UTI Infectious Disease: Yes: Other (Recurrent UTI) Endocrine: Yes: Diabetes Mellitus - Past Surgical History Past Surgical History: Yes: Mastectomy - Alcohol/Substance Use Hx Alcohol Use: No History of Substance Use: reports: None - Smoking History Smoking history: Never smoked Have you smoked in the past 12 months: No Aproximately how many cigarettes per day: 0 - Social History ADL: Family Assistance History of Recent Travel: No Home Medications - Allergies Allergies/Adverse Reactions: Allergies Allergy/AdvReac Type Severity Reaction Status Date / Time No Known Drug Allergies Allergy Verified 05/31/17 14:17 - Home Medications Home Medications: Ambulatory Orders Aspirin 81 mg PO DAILY 05/05/17 Atorvastatin Ca [Lipitor] 40 mg PO HS 05/05/17 Losartan Potassium 25 mg PO DAILY 05/05/17 Metoprolol Succinate [Toprol Xl] 50 mg PO DAILY 05/05/17 Nifedipine [Procardia Xl] 30 mg PO DAILY 05/05/17 Tamoxifen Citrate 20 mg PO DAILY 05/05/17 Linagliptin/Metformin HCl [Jentadueto 2.5 mg-1000 mg Tab] 1 each PO BID Acetaminophen [Tylenol .Regular Strength -] 650 mg PO Q6H PRN tablet 05/30/17 Metoclopramide HCl [Reglan -] 5 mg PO TIDAC tablet 05/30/17 Pantoprazole Sodium [Protonix -] 40 mg PO BID tablet.ec 05/30/17 Pantoprazole Sodium [Protonix -] 40 mg PO DAILY tablet.ec 05/30/17 Sitagliptin Phosphate [Januvia -] 100 mg PO DAILY@0700 ud 05/30/17 Physical Exam- Vital Signs: Vital Signs Temperature 98.8 F 06/01/17 07:15 Pulse Rate 94 H 06/01/17 07:15 Respiratory Rate 18 06/01/17 07:15 Blood Pressure 107/48 06/01/17 07:15 O2 Sat by Pulse Oximetry (%) 100 05/31/17 14:19 Constitutional: Yes: Well Nourished, No Distress, Calm Eyes: Yes: WNL, Conjunctiva Clear, EOM Intact HENT: Yes: WNL, Atraumatic, Normocephalic Neck: Yes: WNL, Supple, Trachea Midline Cardiovascular: Yes: WNL, Regular Rate and Rhythm Respiratory: Yes: WNL, Regular Gastrointestinal: Yes: WNL, Normal Bowel Sounds, Soft, Abdomen, Obese Renal/: Yes: WNL Kidneys: Yes: WNL Pelvis: Yes: WNL, Bladder Non Palpable External Genitalia: Yes: WNL Imaging - Results Cat Scan: Report Reviewed Ultrasound: Report Reviewed Assessment/Plan imp uti with positive blood cultures plan Patient with no clear evidence of source of positive blood culture would continue to treat as per blood culture results and follow urine culture
[2017-06-01 09:48] LABS: BASO % 0.3 % (0-2.0); EOS % 2.8 % (0-4.5); HEMATOCRIT 34.1 % (32.4-45.2); HEMOGLOBIN 10.8 GM/dL (10.7-15.3); LYMPH % 11.6 % (8-40); MCH 28.4 pg (25.7-33.7); MCHC 31.7 g/dl (32.0-36.0); MEAN CELL VOLUME 89.5 fl (80-96); MEAN PLT VOLUME 9.3 fl (7.5-11.1); MONO % 8.8 % (3.8-10.2); NEUT % 76.5 % (42.8-82.8); PLATELET COUNT 192 K/MM3 (134-434); RBC 3.81 M/mm3 (3.60-5.2); RDW 13.6 % (11.6-15.6); WHITE BLOOD COUNT 14.8 K/mm3 (4.0-10.0)
[2017-06-01] MEDS ORDERED: VANCOMYCIN 1,250 MG in DEXTROSE 5%-WATER - 250 ML IVPB SCH (10:00)
--- NOTE | 2017-06-01 10:05 | EKG ---
Test Reason : Blood Pressure : / mmHG Vent. Rate : 103 BPM Atrial Rate : 103 BPM P-R Int : 156 ms QRS Dur : 124 ms QT Int : 358 ms P-R-T Axes : 037 -17 112 degrees QTc Int : 468 ms SINUS TACHYCARDIA LEFT BUNDLE BRANCH BLOCK ABNORMAL ECG WHEN COMPARED WITH ECG OF 29-MAY-2017 11:22, LEFT BUNDLE BRANCH BLOCK IS NOW PRESENT Confirmed by BRIAN CARIAS MD ([id number]) on 06/01/2017 10:05:42 AM Referred By: Confirmed By:BRIAN CARIAS MD
[2017-06-01] MEDS ORDERED: PT OWN MED DRAWER 7, Y5N ONE ×2 (10:33→10:36)
[2017-06-01] MEDS: NIFEdipine E.R. 30 MG TABLET (FP) PO SCH (10:35)
[2017-06-01] MEDS: HEPARIN NA (PORCINE) 5,000 UNITS/ML 1ML VIAL SQ SCH ×2 (10:35→21:57)
[2017-06-01] MEDS: LOSARTAN POTASSIUM 25 MG TABLET PO SCH (10:35)
[2017-06-01] MEDS: ASPIRIN 81 MG CHEWABLE TABLETS PO SCH (10:35)
[2017-06-01] MEDS: PANTOPRAZOLE 40 MG TABLET (FP) PO SCH (10:36)
[2017-06-01] MEDS: TAMOXIFEN CITRATE 10 MG TABLET PO SCH (10:36)
--- NOTE | 2017-06-01 12:39 | PN ---
Progress Note, Physician History of Present Illness: stable no new issues - Current Medication List Current Medications: Active Medications Acetaminophen (Tylenol -) 650 mg PO Q6H PRN PRN Reason: FEVER Last Admin: 05/31/17 21:45 Dose: 650 mg Aspirin (Asa -) 81 mg PO DAILY [facility] [place] Last Admin: 06/01/17 10:35 Dose: 81 mg Atorvastatin Calcium (Lipitor -) 40 mg PO HS [facility] Heparin Sodium (Porcine) (Heparin -) 5,000 unit SQ BID [facility] [place] Last Admin: 06/01/17 10:35 Dose: 5,000 unit Vancomycin HCl 1,250 mg/ (Dextrose) 250 mls @ 166.667 mls/hr IVPB DAILY [facility] [place] PRN Reason: Protocol Last Admin: 06/01/17 10:37 Dose: 166.667 mls/hr Sodium Chloride (1/2 Normal Saline) 1,000 mls @ 75 mls/hr IV ASDIR [facility] [place] Last Admin: 05/31/17 22:47 Dose: 75 mls/hr Insulin Aspart (Novolog Vial Sliding Scale -) 1 vial SQ ACHS [facility] [place] PRN Reason: Protocol Last Admin: 06/01/17 11:53 Dose: Not Given Losartan Potassium (Cozaar -) 25 mg PO DAILY [facility] [place] Last Admin: 06/01/17 10:35 Dose: 25 mg Metoclopramide HCl (Reglan -) 5 mg PO TIDAC [facility] [place] Last Admin: 06/01/17 12:01 Dose: 5 mg Metoprolol Succinate (Toprol Xl -) 50 mg PO DAILY [facility] [place] Last Admin: 06/01/17 10:37 Dose: 50 mg Nifedipine (Procardia Xl -) 30 mg PO DAILY [facility] [place] Last Admin: 06/01/17 10:35 Dose: 30 mg Pantoprazole Sodium (Protonix -) 40 mg PO DAILY [facility] [place] Last Admin: 06/01/17 10:36 Dose: 40 mg Sitagliptin Phosphate (Januvia -) 100 mg PO DAILY@0700 [facility] [place] Last Admin: 06/01/17 06:37 Dose: 100 mg Tamoxifen Citrate (Tamoxifen Citrate) 20 mg PO DAILY [facility] [place] Last Admin: 06/01/17 10:36 Dose: 20 mg - Objective Vital Signs: Vital Signs Temperature 98.7 F 06/01/17 10:29 Pulse Rate 92 H 06/01/17 10:29 Respiratory Rate 20 06/01/17 10:29 Blood Pressure 108/54 0202/18 10:29 O2 Sat by Pulse Oximetry (%) 100 05/31/17 14:19 Constitutional: Yes: No Distress, Calm Cardiovascular: Yes: Regular Rate and Rhythm Respiratory: Yes: Regular, CTA Bilaterally Gastrointestinal: Yes: Normal Bowel Sounds, Soft Musculoskeletal: Yes: WNL Extremities: Yes: WNL Neurological: Yes: Alert, Oriented Psychiatric: Yes: Alert, Oriented Labs: CBC, BMP 06/01/17 06:00 06/01/17 06:00 INR, PTT INR 1.10 (0.82-1.09) 05/31/17 14:41 Assessment/Plan uti positive blood cx fever gm positive bacteremia cx report noted mssa plan will stop vanco will switch to cefazolin await for repeat blood cx rest as blayne team
[2017-06-01] MEDS ORDERED: POLYETHYLENE GLYCOL 3350 119 GM BTL PO STA (12:49)
[2017-06-01] MEDS: ACETAMINOPHEN 325 MG TABLET (FP) PO PRN ×2 (13:20→22:33)
[2017-06-01] MEDS: CEFAZOLIN 1 GM PUSH 1 GM/10 ML DISP.SYRIN IVPUSH SCH ×2 (13:23→17:56)
[2017-06-01] MEDS: SODIUM CHLORIDE 0.45% 1,000 ML IV SCH ×2 (13:29→23:43)
[2017-06-01] MEDS: ATORVASTATIN CA 40 MG TABLET (FP) PO SCH (21:57)
--- NOTE | 2017-06-01 23:32 | PN ---
Progress Note, Physician - Current Medication List Current Medications: Active Medications Acetaminophen (Tylenol -) 650 mg PO Q6H PRN PRN Reason: FEVER Last Admin: 06/01/17 22:33 Dose: 650 mg Aspirin (Asa -) 81 mg PO DAILY [facility] Last Admin: 06/01/17 10:35 Dose: 81 mg Atorvastatin Calcium (Lipitor -) 40 mg PO HS [facility] Last Admin: 06/01/17 21:57 Dose: 40 mg Heparin Sodium (Porcine) (Heparin -) 5,000 unit SQ BID [facility] Last Admin: 06/01/17 21:57 Dose: 5,000 unit Sodium Chloride (1/2 Normal Saline) 1,000 mls @ 75 mls/hr IV ASDIR [facility] Last Admin: 06/01/17 13:29 Dose: 75 mls/hr Cefazolin Sodium (Ancef -) 1 gm in 10 mls @ 100 mls/hr IVPUSH Q8H-IV [facility] Last Admin: 06/01/17 17:56 Dose: 100 mls/hr Insulin Aspart (Novolog Vial Sliding Scale -) 1 vial SQ ACHS [facility] PRN Reason: Protocol Last Admin: 06/01/17 21:59 Dose: Not Given Losartan Potassium (Cozaar -) 25 mg PO DAILY [facility] Last Admin: 06/01/17 10:35 Dose: 25 mg Metoclopramide HCl (Reglan -) 5 mg PO TIDAC [facility] Last Admin: 06/01/17 17:55 Dose: 5 mg Metoprolol Succinate (Toprol Xl -) 50 mg PO DAILY [facility] Last Admin: 06/01/17 10:37 Dose: 50 mg Nifedipine (Procardia Xl -) 30 mg PO DAILY [facility] Last Admin: 06/01/17 10:35 Dose: 30 mg Pantoprazole Sodium (Protonix -) 40 mg PO DAILY [facility] Last Admin: 06/01/17 10:36 Dose: 40 mg Sitagliptin Phosphate (Januvia -) 100 mg PO DAILY@0700 [facility] Last Admin: 06/01/17 06:37 Dose: 100 mg Tamoxifen Citrate (Tamoxifen Citrate) 20 mg PO DAILY [facility] Last Admin: 06/01/17 10:36 Dose: 20 mg - Objective Vital Signs: Vital Signs Temperature 99.8 F H 06/01/17 22:31 Pulse Rate 85 06/01/17 21:00 Respiratory Rate 20 06/01/17 21:00 Blood Pressure 106/46 06/01/17 21:00 O2 Sat by Pulse Oximetry (%) 94 L 06/01/17 21:00 Eyes: Yes: WNL HENT: Yes: WNL Neck: Yes: WNL, Supple Cardiovascular: Yes: WNL, Regular Rate and Rhythm Respiratory: Yes: WNL, Regular, CTA Bilaterally Gastrointestinal: Yes: WNL, Normal Bowel Sounds, Soft Extremities: Yes: WNL Edema: No Labs: CBC, BMP 06/01/17 06:00 06/01/17 06:00 INR, PTT INR 1.10 (0.82-1.09) 05/31/17 14:41 Problem List - Problems (1) Sepsis Assessment/Plan: Bacteremia: Blood culture was (+) for gram (+) cocci Lactic acid decreasing Cont to trend Cont IV antibxs/IVF ID consult Repeat BC Code(s): A41.9 - SEPSIS, UNSPECIFIED ORGANISM (2) GERD (gastroesophageal reflux disease) Code(s): K21.9 - GASTRO-ESOPHAGEAL REFLUX DISEASE WITHOUT ESOPHAGITIS Qualifiers: Esophagitis presence: esophagitis presence not specified Qualified Code(s) : K21.9 - Gastro-esophageal reflux disease without esophagitis (3) HTN (hypertension) Code(s): I10 - ESSENTIAL (PRIMARY) HYPERTENSION (4) Uncontrolled diabetes mellitus Code(s): E11.65 - TYPE 2 DIABETES MELLITUS WITH HYPERGLYCEMIA
[2017-06-02] MEDS: CEFAZOLIN 1 GM PUSH 1 GM/10 ML DISP.SYRIN IVPUSH SCH ×3 (01:11→19:03)
[2017-06-02] MEDS: METOCLOPRAMIDE HCL 10 MG TABLET (FP) PO SCH ×3 (06:05→17:51)
[2017-06-02] MEDS: sitaGLIPtin PHOSPHATE 50 MG TABLET PO SCH (06:05)
[2017-06-02] MEDS: INSULIN SLIDING SCALE (NOVOLOG) 1 VIAL SQ SCH ×5 (06:05→21:26)
[2017-06-02] MEDS: SODIUM CHLORIDE 0.45% 1,000 ML IV SCH (06:14)
[2017-06-02] MEDS: NIFEdipine E.R. 30 MG TABLET (FP) PO SCH (09:55)
[2017-06-02] MEDS: ASPIRIN 81 MG CHEWABLE TABLETS PO SCH (09:55)
[2017-06-02] MEDS: PANTOPRAZOLE 40 MG TABLET (FP) PO SCH (09:55)
[2017-06-02] MEDS: LOSARTAN POTASSIUM 25 MG TABLET PO SCH (09:55)
[2017-06-02] MEDS: HEPARIN NA (PORCINE) 5,000 UNITS/ML 1ML VIAL SQ SCH ×2 (09:55→21:25)
[2017-06-02] MEDS ORDERED: PT OWN MED DRAWER 7, Y5N ONE (09:57)
[2017-06-02] MEDS: TAMOXIFEN CITRATE 10 MG TABLET PO SCH (09:58)
--- NOTE | 2017-06-02 12:13 | PN ---
Progress Note, Physician History of Present Illness: Pt seen and examined. Chart reviewed, events noted. Pt states she is feeling better. Tmax 99.8F. Daughter at bedside. - Current Medication List Current Medications: Active Medications Acetaminophen (Tylenol -) 650 mg PO Q6H PRN PRN Reason: FEVER Last Admin: 06/01/17 22:33 Dose: 650 mg Aspirin (Asa -) 81 mg PO DAILY [facility] Last Admin: 06/02/17 09:55 Dose: 81 mg Atorvastatin Calcium (Lipitor -) 40 mg PO HS [facility] Last Admin: 06/01/17 21:57 Dose: 40 mg Heparin Sodium (Porcine) (Heparin -) 5,000 unit SQ BID [facility] Last Admin: 06/02/17 09:55 Dose: 5,000 unit Sodium Chloride (1/2 Normal Saline) 1,000 mls @ 75 mls/hr IV ASDIR [facility] Last Admin: 06/02/17 06:14 Dose: 75 mls/hr Cefazolin Sodium (Ancef -) 1 gm in 10 mls @ 100 mls/hr IVPUSH Q8H-IV [facility] Last Admin: 06/02/17 01:11 Dose: 100 mls/hr Insulin Aspart (Novolog Vial Sliding Scale -) 1 vial SQ ACHS [facility] PRN Reason: Protocol Last Admin: 06/02/17 06:05 Dose: Not Given Losartan Potassium (Cozaar -) 25 mg PO DAILY [facility] Last Admin: 06/02/17 09:55 Dose: 25 mg Metoclopramide HCl (Reglan -) 5 mg PO TIDAC [facility] Last Admin: 06/02/17 06:05 Dose: 5 mg Metoprolol Succinate (Toprol Xl -) 50 mg PO DAILY [facility] Last Admin: 06/02/17 09:55 Dose: 50 mg Nifedipine (Procardia Xl -) 30 mg PO DAILY [facility] Last Admin: 06/02/17 09:55 Dose: 30 mg Pantoprazole Sodium (Protonix -) 40 mg PO DAILY [facility] Last Admin: 06/02/17 09:55 Dose: 40 mg Sitagliptin Phosphate (Januvia -) 100 mg PO DAILY@0700 [facility] Last Admin: 06/02/17 06:05 Dose: 100 mg Tamoxifen Citrate (Tamoxifen Citrate) 20 mg PO DAILY [facility] Last Admin: 06/02/17 09:58 Dose: 20 mg - Objective Vital Signs: Vital Signs Temperature 98.6 F 06/02/17 05:47 Pulse Rate 81 06/02/17 05:47 Respiratory Rate 20 06/02/17 05:47 Blood Pressure 121/53 06/02/17 05:47 O2 Sat by Pulse Oximetry (%) 94 L 06/01/17 21:00 Constitutional: Yes: No Distress, Calm Cardiovascular: Yes: WNL Respiratory: Yes: CTA Bilaterally Gastrointestinal: Yes: Normal Bowel Sounds, Soft Genitourinary: Yes: WNL Neurological: Yes: Alert, Oriented Labs: CBC, BMP 06/01/17 06:00 06/01/17 06:00 INR, PTT INR 1.10 (0.82-1.09) 05/31/17 14:41 Microbiology 05/31/17 14:41 Blood - Peripheral Venous Blood Culture - Preliminary NO GROWTH OBTAINED AFTER 24 HOURS, INCUBATION TO CONTINUE FOR 4 DAYS. 05/31/17 14:41 Blood - Peripheral Venous Blood Culture - Preliminary NO GROWTH OBTAINED AFTER 24 HOURS, INCUBATION TO CONTINUE FOR 4 DAYS. 05/30/17: blood culture +MSSA repeat urine culture - results pending Problem List - Problems (1) Blood bacterial culture positive Code(s): R78.81 - BACTEREMIA (2) Abdominal pain Code(s): R10.9 - UNSPECIFIED ABDOMINAL PAIN Qualifiers: Abdominal location: generalized Qualified Code(s): R10.84 - Generalized abdominal pain (3) Fever Code(s): R50.9 - FEVER, UNSPECIFIED Qualifiers: Fever type: unspecified Qualified Code(s): R50.9 - Fever, unspecified (4) History of breast cancer in female Code(s): Z85.3 - PERSONAL HISTORY OF MALIGNANT NEOPLASM OF BREAST (5) Leukocytosis (leucocytosis) Code(s): D72.829 - ELEVATED WHITE BLOOD CELL COUNT, UNSPECIFIED Qualifiers: Leukocytosis type: unspecified Qualified Code(s): D72.829 - Elevated white blood cell count, unspecified (6) Uncontrolled diabetes mellitus Code(s): E11.65 - TYPE 2 DIABETES MELLITUS WITH HYPERGLYCEMIA Assessment/Plan MSSA Bacteremia History of recurrent UTIs Leukocytosis Fever -- continue Cefazolin -- f/u urine culture results, -- blood cultures no growth in 24hrs - continue follow -- repeat cbc to monitor wbc trend -- monitor temps case d/w daughter
[2017-06-02] MEDS ORDERED: SODIUM PHOSPHATE/NA BIPHOS 133 ML ENEMA RC ONE (21:00)
[2017-06-02] MEDS: ATORVASTATIN CA 40 MG TABLET (FP) PO SCH (21:25)
--- NOTE | 2017-06-02 22:18 | PN ---
Progress Note, Physician - Current Medication List Current Medications: Active Medications Acetaminophen (Tylenol -) 650 mg PO Q6H PRN PRN Reason: FEVER Last Admin: 06/01/17 22:33 Dose: 650 mg Aspirin (Asa -) 81 mg PO DAILY [facility] Last Admin: 06/02/17 09:55 Dose: 81 mg Atorvastatin Calcium (Lipitor -) 40 mg PO HS [facility] Last Admin: 06/02/17 21:25 Dose: 40 mg Heparin Sodium (Porcine) (Heparin -) 5,000 unit SQ BID [facility] Last Admin: 06/02/17 21:25 Dose: 5,000 unit Sodium Chloride (1/2 Normal Saline) 1,000 mls @ 75 mls/hr IV ASDIR [facility] Last Admin: 06/02/17 06:14 Dose: 75 mls/hr Cefazolin Sodium (Ancef -) 1 gm in 10 mls @ 100 mls/hr IVPUSH Q8H-IV [facility] Last Admin: 06/02/17 19:03 Dose: 100 mls/hr Insulin Aspart (Novolog Vial Sliding Scale -) 1 vial SQ ACHS [facility] PRN Reason: Protocol Last Admin: 06/02/17 21:26 Dose: 2 units Losartan Potassium (Cozaar -) 25 mg PO DAILY [facility] Last Admin: 06/02/17 09:55 Dose: 25 mg Metoclopramide HCl (Reglan -) 5 mg PO TIDAC [facility] Last Admin: 06/02/17 17:51 Dose: 5 mg Metoprolol Succinate (Toprol Xl -) 50 mg PO DAILY [facility] Last Admin: 06/02/17 09:55 Dose: 50 mg Nifedipine (Procardia Xl -) 30 mg PO DAILY [facility] Last Admin: 06/02/17 09:55 Dose: 30 mg Pantoprazole Sodium (Protonix -) 40 mg PO DAILY [facility] Last Admin: 06/02/17 09:55 Dose: 40 mg Sitagliptin Phosphate (Januvia -) 100 mg PO DAILY@0700 [facility] Last Admin: 06/02/17 06:05 Dose: 100 mg Tamoxifen Citrate (Tamoxifen Citrate) 20 mg PO DAILY [facility] Last Admin: 06/02/17 09:58 Dose: 20 mg - Objective Vital Signs: Vital Signs Temperature 99.1 F 06/02/17 20:47 Pulse Rate 80 06/02/17 20:47 Respiratory Rate 20 02/03/18 20:47 Blood Pressure 121/58 02/03/18 20:47 O2 Sat by Pulse Oximetry (%) 94 L 06/01/17 21:00 Eyes: Yes: WNL HENT: Yes: WNL Neck: Yes: WNL, Supple Cardiovascular: Yes: WNL, Regular Rate and Rhythm Respiratory: Yes: WNL, Regular, CTA Bilaterally Gastrointestinal: Yes: WNL, Normal Bowel Sounds, Soft Labs: CBC, BMP 06/01/17 06:00 06/01/17 06:00 INR, PTT INR 1.10 (0.82-1.09) 05/31/17 14:41 Problem List - Problems (1) GERD (gastroesophageal reflux disease) Code(s): K21.9 - GASTRO-ESOPHAGEAL REFLUX DISEASE WITHOUT ESOPHAGITIS Qualifiers: Esophagitis presence: esophagitis presence not specified Qualified Code(s) : K21.9 - Gastro-esophageal reflux disease without esophagitis (2) HTN (hypertension) Code(s): I10 - ESSENTIAL (PRIMARY) HYPERTENSION (3) History of breast cancer in female Code(s): Z85.3 - PERSONAL HISTORY OF MALIGNANT NEOPLASM OF BREAST (4) Sepsis Code(s): A41.9 - SEPSIS, UNSPECIFIED ORGANISM (5) Uncontrolled diabetes mellitus Code(s): E11.65 - TYPE 2 DIABETES MELLITUS WITH HYPERGLYCEMIA
[2017-06-03] MEDS: SODIUM CHLORIDE 0.45% 1,000 ML IV SCH (00:20)
[2017-06-03] MEDS: CEFAZOLIN 1 GM PUSH 1 GM/10 ML DISP.SYRIN IVPUSH SCH ×3 (01:47→18:45)
[2017-06-03] MEDS: INSULIN SLIDING SCALE (NOVOLOG) 1 VIAL SQ SCH ×4 (06:41→21:57)
[2017-06-03] MEDS: METOCLOPRAMIDE HCL 10 MG TABLET (FP) PO SCH ×3 (06:50→17:41)
[2017-06-03] MEDS: sitaGLIPtin PHOSPHATE 50 MG TABLET PO SCH (06:51)
[2017-06-03 08:10] LABS: BASO % 0.8 % (0-2.0); HEMATOCRIT 31.2 % (32.4-45.2); HEMOGLOBIN 10.1 GM/dL (10.7-15.3); LYMPH % 22.8 % (8-40); MCH 28.8 pg (25.7-33.7); MCHC 32.5 g/dl (32.0-36.0); MEAN CELL VOLUME 88.8 fl (80-96); MEAN PLT VOLUME 8.9 fl (7.5-11.1); NEUT % 62.4 % (42.8-82.8); PLATELET COUNT 220 K/MM3 (134-434); RBC 3.51 M/mm3 (3.60-5.2); RDW 13.3 % (11.6-15.6); WHITE BLOOD COUNT 8.7 K/mm3 (4.0-10.0)
[2017-06-03] MEDS: ASPIRIN 81 MG CHEWABLE TABLETS PO SCH (09:30)
[2017-06-03] MEDS: NIFEdipine E.R. 30 MG TABLET (FP) PO SCH (09:31)
[2017-06-03] MEDS: LOSARTAN POTASSIUM 25 MG TABLET PO SCH (09:31)
[2017-06-03] MEDS: HEPARIN NA (PORCINE) 5,000 UNITS/ML 1ML VIAL SQ SCH ×2 (09:31→21:56)
[2017-06-03] MEDS: PANTOPRAZOLE 40 MG TABLET (FP) PO SCH (09:35)
[2017-06-03] MEDS ORDERED: PT OWN MED DRAWER 7, Y5N ONE ×3 (09:37→23:48)
[2017-06-03] MEDS: TAMOXIFEN CITRATE 10 MG TABLET PO SCH (09:37)
--- NOTE | 2017-06-03 14:41 | PN ---
Progress Note, Physician History of Present Illness: Pt feels well. Daughter at bedside. Mild temp elevation last night. No chills or any other specific complaints. - Current Medication List Current Medications: Active Medications Acetaminophen (Tylenol -) 650 mg PO Q6H PRN PRN Reason: FEVER Last Admin: 06/01/17 22:33 Dose: 650 mg Aspirin (Asa -) 81 mg PO DAILY [facility] Last Admin: 06/03/17 09:30 Dose: 81 mg Atorvastatin Calcium (Lipitor -) 40 mg PO HS [facility] Last Admin: 06/02/17 21:25 Dose: 40 mg Heparin Sodium (Porcine) (Heparin -) 5,000 unit SQ BID [facility] Last Admin: 06/03/17 09:31 Dose: 5,000 unit Sodium Chloride (1/2 Normal Saline) 1,000 mls @ 75 mls/hr IV ASDIR [facility] Last Admin: 06/03/17 00:20 Dose: 75 mls/hr Cefazolin Sodium (Ancef -) 1 gm in 10 mls @ 100 mls/hr IVPUSH Q8H-IV [facility] Last Admin: 06/03/17 09:35 Dose: 100 mls/hr Insulin Aspart (Novolog Vial Sliding Scale -) 1 vial SQ ACHS [facility] PRN Reason: Protocol Last Admin: 06/03/17 11:54 Dose: 4 units Losartan Potassium (Cozaar -) 25 mg PO DAILY [facility] Last Admin: 06/03/17 09:31 Dose: 25 mg Metoclopramide HCl (Reglan -) 5 mg PO TIDAC [facility] Last Admin: 06/03/17 11:46 Dose: 5 mg Metoprolol Succinate (Toprol Xl -) 50 mg PO DAILY [facility] Last Admin: 06/03/17 09:30 Dose: 50 mg Nifedipine (Procardia Xl -) 30 mg PO DAILY [facility] Last Admin: 06/03/17 09:31 Dose: 30 mg Pantoprazole Sodium (Protonix -) 40 mg PO DAILY [facility] Last Admin: 06/03/17 09:35 Dose: 40 mg Sitagliptin Phosphate (Januvia -) 100 mg PO DAILY@0700 [facility] Last Admin: 06/03/17 06:51 Dose: 100 mg Tamoxifen Citrate (Tamoxifen Citrate) 20 mg PO DAILY [facility] Last Admin: 06/03/17 09:37 Dose: 20 mg - Objective Vital Signs: Vital Signs Temperature 98.4 F 06/03/17 10:00 Pulse Rate 77 06/03/17 10:00 Respiratory Rate 18 06/03/17 10:00 Blood Pressure 125/62 06/03/17 10:00 O2 Sat by Pulse Oximetry (%) 94 L 06/01/17 21:00 Constitutional: Yes: No Distress, Calm Cardiovascular: Yes: Regular Rate and Rhythm Respiratory: Yes: Regular Gastrointestinal: Yes: Normal Bowel Sounds, Soft Genitourinary: Yes: WNL Extremities: Yes: WNL Neurological: Yes: Alert, Oriented Labs: CBC, BMP 06/03/17 07:15 06/01/17 06:00 INR, PTT INR 1.10 (0.82-1.09) 05/31/17 14:41 Microbiology 05/31/17 14:41 Blood - Peripheral Venous Blood Culture - Preliminary NO GROWTH OBTAINED AFTER 48 HOURS, INCUBATION TO CONTINUE FOR 3 DAYS. 05/31/17 14:41 Blood - Peripheral Venous Blood Culture - Preliminary NO GROWTH OBTAINED AFTER 48 HOURS, INCUBATION TO CONTINUE FOR 3 DAYS. 05/31/17 19:00 Urine - Urine Clean Catch Urine Culture - Final Problem List - Problems (1) Blood bacterial culture positive Code(s): R78.81 - BACTEREMIA (2) Abdominal pain Code(s): R10.9 - UNSPECIFIED ABDOMINAL PAIN Qualifiers: Abdominal location: generalized Qualified Code(s): R10.84 - Generalized abdominal pain (3) Fever Code(s): R50.9 - FEVER, UNSPECIFIED Qualifiers: Fever type: unspecified Qualified Code(s): R50.9 - Fever, unspecified (4) History of breast cancer in female Code(s): Z85.3 - PERSONAL HISTORY OF MALIGNANT NEOPLASM OF BREAST (5) Leukocytosis (leucocytosis) Code(s): D72.829 - ELEVATED WHITE BLOOD CELL COUNT, UNSPECIFIED Qualifiers: Leukocytosis type: unspecified Qualified Code(s): D72.829 - Elevated white blood cell count, unspecified (6) Uncontrolled diabetes mellitus Code(s): E11.65 - TYPE 2 DIABETES MELLITUS WITH HYPERGLYCEMIA Assessment/Plan MSSA Bacteremia, etiology unclear History of recurrent UTIs Leukocytosis - resolved Low grade fever -- continue Cefazolin for now -- blood cultures negative thus far, urine culture - no organism -- if remains stable, is afebrile to consider switch to po antibiotics continue monitor pt for now
--- NOTE | 2017-06-03 21:46 | PN ---
Progress Note, Physician History of Present Illness: No new complaints - Current Medication List Current Medications: Active Medications Acetaminophen (Tylenol -) 650 mg PO Q6H PRN PRN Reason: FEVER Last Admin: 06/01/17 22:33 Dose: 650 mg Aspirin (Asa -) 81 mg PO DAILY [facility] Last Admin: 06/03/17 09:30 Dose: 81 mg Atorvastatin Calcium (Lipitor -) 40 mg PO HS [facility] Last Admin: 06/02/17 21:25 Dose: 40 mg Heparin Sodium (Porcine) (Heparin -) 5,000 unit SQ BID [facility] Last Admin: 06/03/17 09:31 Dose: 5,000 unit Sodium Chloride (1/2 Normal Saline) 1,000 mls @ 75 mls/hr IV ASDIR [facility] Last Admin: 06/03/17 00:20 Dose: 75 mls/hr Cefazolin Sodium (Ancef -) 1 gm in 10 mls @ 100 mls/hr IVPUSH Q8H-IV [facility] Last Admin: 06/03/17 18:45 Dose: 100 mls/hr Insulin Aspart (Novolog Vial Sliding Scale -) 1 vial SQ ACHS [facility] PRN Reason: Protocol Last Admin: 06/03/17 17:40 Dose: 2 units Losartan Potassium (Cozaar -) 25 mg PO DAILY [facility] Last Admin: 06/03/17 09:31 Dose: 25 mg Metoclopramide HCl (Reglan -) 5 mg PO TIDAC [facility] Last Admin: 06/03/17 17:41 Dose: 5 mg Metoprolol Succinate (Toprol Xl -) 50 mg PO DAILY [facility] Last Admin: 06/03/17 09:30 Dose: 50 mg Nifedipine (Procardia Xl -) 30 mg PO DAILY [facility] Last Admin: 06/03/17 09:31 Dose: 30 mg Pantoprazole Sodium (Protonix -) 40 mg PO DAILY [facility] Last Admin: 06/03/17 09:35 Dose: 40 mg Sitagliptin Phosphate (Januvia -) 100 mg PO DAILY@0700 [facility] Last Admin: 06/03/17 06:51 Dose: 100 mg Tamoxifen Citrate (Tamoxifen Citrate) 20 mg PO DAILY [facility] Last Admin: 06/03/17 09:37 Dose: 20 mg - Objective Vital Signs: Vital Signs Temperature 99 F 06/03/17 20:10 Pulse Rate 76 06/03/17 20:10 Respiratory Rate 18 06/03/17 20:10 Blood Pressure 126/66 06/03/17 20:10 O2 Sat by Pulse Oximetry (%) 94 L 06/01/17 21:00 HENT: Yes: WNL Neck: Yes: WNL, Supple Cardiovascular: Yes: WNL, Regular Rate and Rhythm Respiratory: Yes: WNL, Regular, CTA Bilaterally Gastrointestinal: Yes: WNL, Normal Bowel Sounds, Soft Musculoskeletal: Yes: WNL Extremities: Yes: WNL Edema: No Labs: CBC, BMP 06/03/17 07:15 06/01/17 06:00 INR, PTT INR 1.10 (0.82-1.09) 05/31/17 14:41 Problem List - Problems (1) Sepsis Assessment/Plan: Bacteremia: Blood culture was (+) for gram (+) cocci Lactic acid decreasing Cont to trend Repeat blood cultures remain negative Cont IV cefazolin Check labs in am Check echo in am Possible dc planning as per ID Code(s): A41.9 - SEPSIS, UNSPECIFIED ORGANISM (2) HTN (hypertension) Assessment/Plan: BP stable Cont toprol/losartan/procardia Code(s): I10 - ESSENTIAL (PRIMARY) HYPERTENSION (3) Uncontrolled diabetes mellitus Assessment/Plan: Cont sliding scale w/ coverage Cont januvia Code(s): E11.65 - TYPE 2 DIABETES MELLITUS WITH HYPERGLYCEMIA (4) History of breast cancer in female Assessment/Plan: Cont tamoxifen Code(s): Z85.3 - PERSONAL HISTORY OF MALIGNANT NEOPLASM OF BREAST (5) GERD (gastroesophageal reflux disease) Assessment/Plan: Cont protonix Code(s): K21.9 - GASTRO-ESOPHAGEAL REFLUX DISEASE WITHOUT ESOPHAGITIS Qualifiers: Esophagitis presence: esophagitis presence not specified Qualified Code(s) : K21.9 - Gastro-esophageal reflux disease without esophagitis
[2017-06-03] MEDS: ATORVASTATIN CA 40 MG TABLET (FP) PO SCH (21:57)
[2017-06-04] MEDS: CEFAZOLIN 1 GM PUSH 1 GM/10 ML DISP.SYRIN IVPUSH SCH ×2 (01:54→10:18)
[2017-06-04] MEDS: SODIUM CHLORIDE 0.45% 1,000 ML IV SCH (04:05)
[2017-06-04] MEDS: INSULIN SLIDING SCALE (NOVOLOG) 1 VIAL SQ SCH ×3 (06:19→17:13)
[2017-06-04] MEDS: sitaGLIPtin PHOSPHATE 50 MG TABLET PO SCH (06:20)
[2017-06-04] MEDS: METOCLOPRAMIDE HCL 10 MG TABLET (FP) PO SCH ×3 (06:20→17:13)
[2017-06-04 08:17] LABS: ALBUMIN 2.7 g/dl (3.4-5.0); ALK PHOS 70 U/L (45-117); ANION GAP 11 (8-16); BILIRUBIN,TOTAL 0.3 mg/dL (0.2-1.0); BLOOD UREA NITROGEN 7 mg/dL (7-18); CALCIUM 8.6 mg/dL (8.5-10.1); CHLORIDE 105 mmol/L (98-107); CO2 25 mmol/L (21-32); CREATININE 0.8 mg/dL (0.55-1.02); GLUCOSE,RANDOM 133 mg/dL (74-106); POTASSIUM 3.8 mmol/L (3.5-5.1); SGOT/AST 46 U/L (15-37); SGPT/ALT 23 U/L (12-78); SODIUM 141 mmol/L (136-145); TOT PROT 6.3 g/dl (6.4-8.2)
[2017-06-04 08:23] LABS: BASO % 0.9 % (0-2.0); HEMATOCRIT 32.8 % (32.4-45.2); HEMOGLOBIN 10.7 GM/dL (10.7-15.3); LYMPH % 28.4 % (8-40); MCH 28.8 pg (25.7-33.7); MCHC 32.6 g/dl (32.0-36.0); MEAN CELL VOLUME 88.3 fl (80-96); MEAN PLT VOLUME 9.1 fl (7.5-11.1); MONO % 9.7 % (3.8-10.2); PLATELET COUNT 270 K/MM3 (134-434); RBC 3.71 M/mm3 (3.60-5.2); RDW 13.2 % (11.6-15.6); WHITE BLOOD COUNT 7.7 K/mm3 (4.0-10.0)
[2017-06-04 09:05] VITALS: PULSE 76
[2017-06-04] MEDS: NIFEdipine E.R. 30 MG TABLET (FP) PO SCH (10:13)
[2017-06-04] MEDS: HEPARIN NA (PORCINE) 5,000 UNITS/ML 1ML VIAL SQ SCH (10:14)
[2017-06-04] MEDS: PANTOPRAZOLE 40 MG TABLET (FP) PO SCH (10:14)
[2017-06-04] MEDS: LOSARTAN POTASSIUM 25 MG TABLET PO SCH (10:14)
[2017-06-04] MEDS: ASPIRIN 81 MG CHEWABLE TABLETS PO SCH (10:14)
[2017-06-04] MEDS: TAMOXIFEN CITRATE 10 MG TABLET PO SCH (10:19)
--- NOTE | 2017-06-04 11:09 | PN ---
Progress Note, Physician History of Present Illness: stable no new issues patient with no other issues - Current Medication List Current Medications: Active Medications Acetaminophen (Tylenol -) 650 mg PO Q6H PRN PRN Reason: FEVER Last Admin: 06/01/17 22:33 Dose: 650 mg Aspirin (Asa -) 81 mg PO DAILY [facility] Last Admin: 06/04/17 10:14 Dose: 81 mg Atorvastatin Calcium (Lipitor -) 40 mg PO HS [facility] Last Admin: 06/03/17 21:57 Dose: 40 mg Heparin Sodium (Porcine) (Heparin -) 5,000 unit SQ BID [facility] Last Admin: 06/04/17 10:14 Dose: 5,000 unit Sodium Chloride (1/2 Normal Saline) 1,000 mls @ 75 mls/hr IV ASDIR [facility] Last Admin: 06/04/17 04:05 Dose: 75 mls/hr Cefazolin Sodium (Ancef -) 1 gm in 10 mls @ 100 mls/hr IVPUSH Q8H-IV [facility] Last Admin: 06/04/17 10:18 Dose: 100 mls/hr Insulin Aspart (Novolog Vial Sliding Scale -) 1 vial SQ ACHS [facility] PRN Reason: Protocol Last Admin: 06/04/17 06:19 Dose: Not Given Losartan Potassium (Cozaar -) 25 mg PO DAILY [facility] Last Admin: 06/04/17 10:14 Dose: 25 mg Metoclopramide HCl (Reglan -) 5 mg PO TIDAC [facility] Last Admin: 06/04/17 10:14 Dose: 5 mg Metoprolol Succinate (Toprol Xl -) 50 mg PO DAILY [facility] Last Admin: 06/04/17 10:14 Dose: 50 mg Nifedipine (Procardia Xl -) 30 mg PO DAILY [facility] Last Admin: 06/04/17 10:13 Dose: 30 mg Pantoprazole Sodium (Protonix -) 40 mg PO DAILY [facility] Last Admin: 06/04/17 10:14 Dose: 40 mg Sitagliptin Phosphate (Januvia -) 100 mg PO DAILY@0700 [facility] Last Admin: 06/04/17 06:20 Dose: 100 mg Tamoxifen Citrate (Tamoxifen Citrate) 20 mg PO DAILY [facility] Last Admin: 06/04/17 10:19 Dose: 20 mg - Objective Vital Signs: Vital Signs Temperature 98.4 F 06/04/17 09:04 Pulse Rate 76 06/04/17 09:04 Respiratory Rate 16 06/04/17 09:04 Blood Pressure 130/66 06/04/17 09:04 O2 Sat by Pulse Oximetry (%) 94 L 06/01/17 21:00 Constitutional: Yes: No Distress, Calm Eyes: Yes: Conjunctiva Clear Neck: Yes: Supple Cardiovascular: Yes: Regular Rate and Rhythm Respiratory: Yes: Regular, CTA Bilaterally Gastrointestinal: Yes: Normal Bowel Sounds, Soft Musculoskeletal: Yes: WNL Extremities: Yes: WNL Neurological: Yes: Alert, Oriented Psychiatric: Yes: Alert, Oriented Labs: CBC, BMP 06/04/17 06:00 06/04/17 06:00 INR, PTT INR 1.10 (0.82-1.09) 05/31/17 14:41 Assessment/Plan uti positive blood cx fever gm positive bacteremia cx report noted mssa plan will stop cefazolin will switch to oral abx
[2017-06-04 15:35] VITALS: BP 114/62; TEMP 8.9
[2017-06-04] MEDS ORDERED: AMOX TR/POT CLAV 875MG/125MG TABLETS (FP) PO SCH (17:30)
--- NOTE | 2017-06-04 23:25 | PN ---
Progress Note, Physician - Objective Vital Signs: Vital Signs Temperature 8.9 F L 06/04/17 15:31 Pulse Rate 76 06/04/17 15:31 Respiratory Rate 18 06/04/17 15:31 Blood Pressure 114/62 06/04/17 15:31 O2 Sat by Pulse Oximetry (%) 94 L 06/01/17 21:00 Labs: CBC, BMP 06/04/17 06:00 06/04/17 06:00 INR, PTT INR 1.10 (0.82-1.09) 05/31/17 14:41 Problem List - Problems (1) Sepsis Code(s): A41.9 - SEPSIS, UNSPECIFIED ORGANISM (2) HTN (hypertension) Code(s): I10 - ESSENTIAL (PRIMARY) HYPERTENSION (3) Uncontrolled diabetes mellitus Code(s): E11.65 - TYPE 2 DIABETES MELLITUS WITH HYPERGLYCEMIA (4) History of breast cancer in female Code(s): Z85.3 - PERSONAL HISTORY OF MALIGNANT NEOPLASM OF BREAST (5) GERD (gastroesophageal reflux disease) Code(s): K21.9 - GASTRO-ESOPHAGEAL REFLUX DISEASE WITHOUT ESOPHAGITIS Qualifiers: Esophagitis presence: esophagitis presence not specified Qualified Code(s) : K21.9 - Gastro-esophageal reflux disease without esophagitis
== END 2017-06-04 17:10 | disposition home or self-care (01) | DRG 872 ==
LOC: JER 14:15 → JERBED 16:30 → J8W 20:39
PROVIDERS: ADMIT Internal Medicine; ATTEND Internal Medicine
DX: A41.9 Sepsis, unspecified organism (principal); N39.0 Urinary tract infection, site not specified; K21.9 Gastro-esophageal reflux disease without esophagitis; I10 Essential (primary) hypertension; Z85.3 Personal history of malignant neoplasm of breast; E78.5 Hyperlipidemia, unspecified; E11.65 Type 2 diabetes mellitus with hyperglycemia; D72.829 Elevated white blood cell count, unspecified
CPT/HCPCS: 36415; 80053; 81003; 82962; 83605; 85025; 85610; 85730; 87040; 87086; 93005; 93010; 93306-TC; 99283-25; J1644

== ENCOUNTER 2018-10-14 05:08 | Day surgery (SDC) | payer OTHER | END 2018-10-14 16:23 | disposition home or self-care (01) | LOC: JASU-SURG 05:08 ==

== ENCOUNTER 2020-01-08 18:51 | Inpatient (IN) | payer OTHER ==
[2020-01-08 18:56] VITALS: BMI 25.3
--- NOTE | 2020-01-08 20:06 | PDOC ---
History of Present Illness - General Chief Complaint: Pain Stated Complaint: ABDOMINAL PAIN Time Seen by Provider: 01/08/20 19:34 - History of Present Illness Initial Comments: 01/08/20 20:05 79yoF PMH breast CA, UTI, p/w 5days of no BM and ABD discomfort. She was Rx w/ amoxicillin for UTI 1week ago and was changed to augmentin 2days ago. Between then and now she had fever and dysuria. She now denies dysuria but states she has not had a BM in 5days. Endorses passing gas and tolerating PO. Denies n/v/cough. Denies ABD surgery, back pain, or urinary retention. Daughter states pt received 2 enemas today but those were unsuccessful. Past History - Medical History Allergies/Adverse Reactions: Allergies Allergy/AdvReac Type Severity Reaction Status Date / Time No Known Drug Allergies Allergy Verified 01/08/20 18:55 Home Medications: Ambulatory Orders Aspirin 81 mg PO DAILY 05/05/17 Atorvastatin Ca [Lipitor] 40 mg PO HS 05/05/17 Losartan Potassium 25 mg PO DAILY 05/05/17 Insulin Sliding Scale [Novolog Vial Sliding Scale -] 0 units SQ TIDAC 10/09/18 Nitrofurantoin Macrocrystal [Nitrofurantoin] 100 mg PO BID 10/09/18 Pantoprazole Sodium [Protonix -] 40 mg PO PRN PRN 10/09/18 Ibuprofen [Motrin -] 600 mg PO QID #28 tablet 10/14/18 Letrozole 2.5 mg PO DAILY 10/14/18 Linaclotide [Linzess] 72 mcg PO DAILY 10/14/18 Metformin HCl [Glucophage] 1,000 mg PO BID 10/14/18 Anemia: No Asthma: No Cancer: Yes (BREAST CA.) Cardiac Disorders: No CVA: No COPD: No CHF: No DVT: No Dementia: No Diabetes: Yes (NIDM) GI Disorders: Yes (Constipation) Disorders: No HTN: Yes Hypercholesterolemia: Yes Liver Disease: No Seizures: No Thyroid Disease: No - Surgical History Abdominal Surgery: No Appendectomy: No Cardiac Surgery: No Cholecystectomy: No GI Surgery: Yes (Colon resection) Lung Surgery: No Neurologic Surgery: No Orthopedic Surgery: No - Reproductive History Is Patient Now?: No - Immunization History Immunization Up to Date: No - Psycho-Social/Smoking History Smoking Status: No Smoking History: Never smoked Have you smoked in the past 12 months: No Number of Cigarettes Smoked Daily: 0 Information on smoking cessation initiated: No - Substance Abuse Hx (Audit-C & DAST Scrn) How often the patient has a drink containing alcohol: Never Score: In Men: 4 or > Positive; In Women: 3 or > Positive: 0 Screen Result (Pos requires Nsg. Audit-10AR): Negative In the last yr the pt used illegal drug/Rx for NonMed reason: No Score: Yes response is considered Positive: 0 Screen Result (Positive result requires Nsg. DAST-10): Negative Review of Systems - Review of Systems Able to Perform ROS?: Yes Is the patient limited [place] proficient: Yes Constitutional: Yes: Fever, Malaise, Weakness. No: Chills, Diaphoresis, Loss of Appetite HEENTM: No: Blurred Vision, Recent change in vision, Throat Pain, Difficulty Swallowing Respiratory: No: Cough, SOB with Exertion, SOB at Rest, Stridor, Wheezing, Productive cough Cardiac (ROS): No: Chest Pain, Edema, Irregular Heart Rate, Palpitations, Syncope, Chest Tightness ABD/GI: Yes: Abdominal Distended, Constipated, Nausea. No: Abd. Pain w/ defecation, Blood Streaked Bowels, Difficulty Swallowing, Vomiting, Indigestion, Abdominal cramping, Tarry Stools : Yes: Burning, Dysuria. No: Flank Pain, Hematuria, Urgency Musculoskeletal: No: Back Pain, Muscle Pain Integumentary: No: Bruising, Dryness, Erythema, Rash Neurological: No: Headache, Paresthesia *Physical Exam - Vital Signs Last Vital Signs Temp Pulse Resp BP Pulse Ox 98.8 F 111 H 17 128/53 L 98 01/08/20 18:52 01/08/20 18:52 01/08/20 18:52 01/08/20 18:52 01/08/20 18:52 - Physical Exam General Appearance: Yes: Nourished, Appropriately Dressed. No: Apparent Distress HEENT: positive: EOMI, Normal Voice. negative: Rhinorrhea, Sinus Tenderness Neck: positive: Trachea midline, Supple. negative: Tender, Carotid bruit, Stridor Respiratory/Chest: positive: Lungs Clear, Normal Breath Sounds. negative: Respiratory Distress, Accessory Muscle Use Cardiovascular: positive: Regular Rhythm, S1, S2, Tachycardia, Systolic Murmur Gastrointestinal/Abdominal: positive: Normal Bowel Sounds, Soft, Distended. negative: Tender, Flat, Organomegaly, Pulsatile Mass, Increased Bowel Sounds, Decreased BS, Guarding, Rebound, Tenderness, Hernia, Mass, Hepatomegaly, Spleenomegaly Musculoskeletal: positive: Normal Inspection. negative: CVA Tenderness Extremity: positive: Normal Capillary Refill, Normal Inspection Integumentary: positive: Normal Color, Dry, Warm Neurologic: positive: Fully Oriented, Alert, Normal Mood/Affect, Normal Response ED Treatment Course - LABORATORY CBC & Chemistry Diagram: 01/08/20 20:38 01/08/20 20:38 Medical Decision Making - Medical Decision Making 01/09/20 00:04 Pt has had multiple BMs while in the ED and reports massive relief from her ABD pain. Chemistry shows transaminitis and SHERLY and leukocytosis -> admit Discharge - Discharge Information Problems reviewed: Yes Clinical Impression/Diagnosis: SHERLY (acute kidney injury), Transaminitis Abdominal pain Qualifiers: Abdominal location: unspecified location Qualified Code(s): R10.9 - Unspecified abdominal pain Leukocytosis (leucocytosis) Qualifiers: Leukocytosis type: bandemia Qualified Code(s): D72.825 - Bandemia Condition: Guarded - Admission Yes - Follow up/Referral Referrals: José Denis MD [Primary Care Provider] - - Patient Discharge Instructions - Post Discharge Activity
[2020-01-08] MEDS ORDERED: LACTATED RINGERS SOLUTION 1000 ML INFUS.BAG IV ONE ×2 (20:17→23:54)
[2020-01-08 20:49] LABS: BASO % 0.5 % (0-2.0); EOS % 1.2 % (0-4.5); HEMATOCRIT 34.4 % (32.4-45.2); LYMPH % 14.4 % (8-40); MCH 26.6 pg (25.7-33.7); MCHC 31.9 g/dl (32.0-36.0); MEAN CELL VOLUME 83.3 fl (80-96); MEAN PLT VOLUME 9.4 fl (7.5-11.1); MONO % 8.7 % (3.8-10.2); NEUT % 75.2 % (42.8-82.8); PLATELET COUNT 379 K/MM3 (134-434); RBC 4.13 M/mm3 (3.60-5.2); RDW 15.9 % (11.6-15.6); WHITE BLOOD COUNT 14.6 K/mm3 (4.0-10.0)
[2020-01-08 20:56] LABS: INR 0.98 (0.83-1.09); PROTHROMBIN TIME (PATIENT) 11.6 SEC (9.7-13.0)
[2020-01-08 20:58] LABS: ACTIVATED PTT 36.5 SECONDS (25.2-36.5)
--- NOTE | 2020-01-08 21:27 | PDOC ---
Documentation entered by Rashmi Nolasco SCRIBE, acting as scribe for Elis Pickering DO. Elis Pickering DO: This documentation has been prepared by the Gaurav york Brenda, SCRIBE, under my direction and personally reviewed by me in its entirety. I confirm that the documentation accurately reflects all work, treatment, procedures, and medical decision making performed by me. Attending Attestation - Resident Resident Name: Rahul Lopez - ED Attending Attestation I have performed the following: I have examined & evaluated the patient, The case was reviewed & discussed with the resident, I agree w/resident's findings & plan, Exceptions are as noted - HPI HPI: 01/08/20 21:00 The patient is an 79 year old female with a significant PMH of hypertension, hyperlipidemia, DM, breast CA s/p mastectomy who presents to the emergency department for evaluation of 5 days of constipation and abdominal pain. The patient notes she was put on antibiotics (amoxicillin) 1 week ago for an UTI. Endorses dysuria previously but not currently. The patient denies chest pain, shortness of breath, headache and dizziness. Denies fever, chills, nausea, vomiting, diarrhea. Denies dysuria, frequency, urgency and hematuria. Allergies: NKA Social history: No reported hx of tobacco use, alcohol use or illicit drug use. PCP: José Denis - Physicial Exam PE: 01/08/20 20:50 GENERAL: Awake, alert, and fully oriented, in no acute distress LUNGS: Breath sounds equal, clear to auscultation bilaterally. No wheezes, and no crackles HEART: (+) Tachycardic. Regular rhythm, normal S1 and S2, no murmurs, rubs or gallops ABDOMEN: Soft, nontender, normoactive bowel sounds. No guarding, no rebound. No masses. No CVA tenderness. EXTREMITIES: Normal range of motion, no edema. No clubbing or cyanosis. No cords, erythema, or tenderness NEUROLOGICAL: Cranial nerves II through XII grossly intact. Normal speech, normal gait SKIN: Warm, Dry, normal turgor, no rashes or lesions noted. - Medical Decision Making 01/08/20 21:23 a/p: 79yo female currently on abx for uti with abd pain and constipation x 5 days -passing flatus -denies dysuria at this time -no abd ttp on exam, but c/o diffuse ttp -will send labs, ua, ct abd/pelvis -pt has used mag citrate, fleet enema without a bm -will hydrate, pain control, monitor and reassess -rectal per resident 01/08/20 21:32 pt with sherly elevated lactate wbc [address] pending ua will need admission 01/08/20 23:27 ct does not show any acute findings 01/08/20 23:55 [address] Denis, call placed to Dr. Walker Discharge - Discharge Information Problems reviewed: Yes Clinical Impression/Diagnosis: Abdominal pain, Leukocytosis (leucocytosis), SHERLY (acute kidney injury), Transaminitis Condition: Guarded - Admission Yes - Follow up/Referral Referrals: José Denis MD [Primary Care Provider] - - Patient Discharge Instructions - Post Discharge Activity
[2020-01-08 21:29] LABS: ALBUMIN 3.6 g/dl (3.4-5.0); BILIRUBIN,TOTAL 0.4 mg/dL (0.2-1); BLOOD UREA NITROGEN 19.1 mg/dL (7-18); CALCIUM 9.8 mg/dL (8.5-10.1); CREATININE 1.8 mg/dL (0.55-1.3); POTASSIUM 5.2 mmol/L (3.5-5.1)
[2020-01-09] MEDS ORDERED: CEFTRIAXONE 1,000 MG in DEXTROSE 5%-WATER - 50 ML IVPB ONE (00:10)
[2020-01-09] MEDS ORDERED: SODIUM CHLORIDE 0.9% 500 ML INFUS.BAG IV ONE (00:23)
[2020-01-09] MEDS ORDERED: CEFTRIAXONE 1 GM/50 ML BAG ONE (00:30)
[2020-01-09 03:12] LABS: URINE APPEARANCE CLEAR; URINE BILIRUBIN NEGATIVE (NEGATIVE); URINE COLOR YELLOW; URINE GLUCOSE (UA) NEGATIVE (NEGATIVE); URINE KETONE NEGATIVE (NEGATIVE); URINE LEUK ESTERASE NEGATIVE (NEGATIVE); URINE NITRITE NEGATIVE (NEGATIVE); URINE PROTEIN NEGATIVE (NEGATIVE); URINE UROBILINOGEN 0.2 mg/dL (0.2-1.0)
--- NOTE | 2020-01-09 09:07 | EKG ---
Test Reason : Blood Pressure : / mmHG Vent. Rate : 089 BPM Atrial Rate : 089 BPM P-R Int : 150 ms QRS Dur : 118 ms QT Int : 380 ms P-R-T Axes : 046 -12 102 degrees QTc Int : 462 ms NORMAL SINUS RHYTHM ANTERIOR INFARCT , AGE UNDETERMINED LEFT BUNDLE BRANCH BLOCK NONSPECIFIC ST AND T WAVE ABNORMALITY ABNORMAL ECG Confirmed by BRIAN CARIAS MD ([id number]) on 01/09/2020 9:07:12 AM Referred By: Confirmed By:BRIAN CARIAS MD
[2020-01-09] MEDS ORDERED: DEXTROSE 5%-0.45% SALINE 1,000 ML IV SCH (09:45)
[2020-01-09] MEDS ORDERED: metFORMIN HCL 500 MG TABLET (FP) PO SCH (10:00)
[2020-01-09] MEDS ORDERED: LOSARTAN POTASSIUM 25 MG TABLET PO SCH (10:00)
[2020-01-09] MEDS: LETROZOLE 2.5 MG TABLET (FP) PO SCH (12:00)
[2020-01-09] MEDS ORDERED: LOSARTAN POTASSIUM 50 MG TABLET (FP) ONE (12:24)
[2020-01-09] MEDS ORDERED: HEPARIN NA (PORCINE) 5,000 UNITS/ML 1ML VIAL ONE (12:24)
[2020-01-09] MEDS ORDERED: ASPIRIN 81 MG CHEWABLE TABLETS ONE (12:24)
[2020-01-09] MEDS ORDERED: metFORMIN HCL 500 MG TABLET (FP) ONE (12:24)
[2020-01-09] MEDS: CEFTRIAXONE 1 GM in DEXTROSE 5%-WATER - 50 ML IVPB SCH (12:31)
[2020-01-09] MEDS: HEPARIN NA (PORCINE) 5,000 UNITS/ML 1ML VIAL SQ SCH ×2 (12:31→22:04)
[2020-01-09] MEDS: ASPIRIN 81 MG CHEWABLE TABLETS PO SCH (12:31)
[2020-01-09] MEDS: INSULIN SLIDING SCALE (NOVOLOG) 1 VIAL SQ SCH ×3 (12:45→22:06)
[2020-01-09 13:32] LABS: BASO % 0.6 % (0-2.0); EOS % 2.8 % (0-4.5); HEMATOCRIT 28.9 % (32.4-45.2); HEMOGLOBIN 9.2 GM/dL (10.7-15.3); LYMPH % 17.8 % (8-40); MCH 26.4 pg (25.7-33.7); MCHC 31.8 g/dl (32.0-36.0); MEAN PLT VOLUME 8.8 fl (7.5-11.1); NEUT % 68.8 % (42.8-82.8); PLATELET COUNT 333 K/MM3 (134-434); RBC 3.48 M/mm3 (3.60-5.2); RDW 15.9 % (11.6-15.6); WHITE BLOOD COUNT 9.3 K/mm3 (4.0-10.0)
[2020-01-09 13:59] LABS: BILIRUBIN,TOTAL 0.3 mg/dL (0.2-1); BLOOD UREA NITROGEN 15.5 mg/dL (7-18); CALCIUM 9.2 mg/dL (8.5-10.1); CREATININE 1.2 mg/dL (0.55-1.3); POTASSIUM 4.8 mmol/L (3.5-5.1); TOT PROT 6.5 g/dl (6.4-8.2)
--- NOTE | 2020-01-09 14:02 | CONSULT ---
Consult Consult Specialty:: Nephrology Reason for Consultation:: SHERLY - History of Present Illness Chief Complaint: abd pain History of Present Illness: Pt is an 79 year old female with pmhx of breast cancer, uti, htn, dm and hld who presents to the ER with abdominal pain. She was on amoxicilin for a week then augmenting for the last few days. 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 She denies fever or chills. She denies hemauria or dysuria. She complains of constipation. - History Source History Provided By: Patient, Medical Record - Past Medical History Cardio/Vascular: Yes: HTN, Hyperlipdemia Gastrointestinal: Yes: Other (chronic conspitation, nausea) Renal/: Yes: UTI ...: No Infectious Disease: Yes: Other (Recurrent UTI) Endocrine: Yes: Diabetes Mellitus - Past Surgical History Past Surgical History: Yes: Mastectomy - Alcohol/Substance Use Hx Alcohol Use: No History of Substance Use: reports: None - Smoking History Smoking history: Never smoked Have you smoked in the past 12 months: No Aproximately how many cigarettes per day: 0 - Social History ADL: Family Assistance History of Recent Travel: No Home Medications - Allergies Allergies/Adverse Reactions: Allergies Allergy/AdvReac Type Severity Reaction Status Date / Time No Known Drug Allergies Allergy Verified 01/08/20 18:55 - Home Medications Home Medications: Ambulatory Orders Aspirin 81 mg PO DAILY 05/05/17 Atorvastatin Ca [Lipitor] 40 mg PO HS 05/05/17 Losartan Potassium 25 mg PO DAILY 05/05/17 Insulin Sliding Scale [Novolog Vial Sliding Scale -] 3 units SQ TIDAC 10/09/18 Ibuprofen [Motrin -] 600 mg PO QID #28 tablet 10/14/18 Letrozole 2.5 mg PO DAILY 10/14/18 Metformin HCl [Glucophage] 1,000 mg PO BID 10/14/18 Lubiprostone [Amitiza] 8 mcg PO DAILY 01/09/20 Family Medical History Family History: Denies Review of Systems - Review of Systems Constitutional: reports: Malaise Eyes: reports: No Symptoms HENT: reports: No Symptoms Neck: reports: No Symptoms Cardiovascular: reports: No Symptoms Respiratory: reports: No Symptoms Gastrointestinal: reports: Abdominal Pain, Constipation Genitourinary: reports: No Symptoms Musculoskeletal: reports: No Symptoms Integumentary: reports: No Symptoms Neurological: reports: No Symptoms Endocrine: reports: No Symptoms Hematology/Lymphatic: reports: No Symptoms Physical Exam Vital Signs: Vital Signs Temperature 98.4 F 01/09/20 12:41 Pulse Rate 80 01/09/20 12:41 Respiratory Rate 18 01/09/20 12:41 Blood Pressure 136/57 L 01/09/20 12:41 O2 Sat by Pulse Oximetry (%) 97 01/09/20 12:41 Constitutional: Yes: Calm Eyes: Yes: Conjunctiva Clear HENT: Yes: Atraumatic Neck: Yes: Supple Cardiovascular: Yes: S1, S2 Respiratory: Yes: CTA Bilaterally Gastrointestinal: Yes: Normal Bowel Sounds, Soft Renal/: Yes: WNL Musculoskeletal: Yes: WNL Edema: No Neurological: Yes: Oriented Psychiatric: Yes: Oriented Labs: CBC, BMP 01/09/20 12:53 Imaging - Results Ultrasound: Report Reviewed Problem List - Problems (1) SHERLY (acute kidney injury) Code(s): N17.9 - ACUTE KIDNEY FAILURE, UNSPECIFIED (2) HTN (hypertension) Code(s): I10 - ESSENTIAL (PRIMARY) HYPERTENSION Assessment/Plan Current Medications Generic Name Dose Route Start Last Admin Trade Name Adriano PRN Reason Stop Dose Admin Aspirin 81 mg 01/09/20 10:00 01/09/20 12:31 Asa - PO 81 mg DAILY ARIS Administration Atorvastatin Calcium 40 mg 01/09/20 22:00 Lipitor - PO HS ARIS Heparin Sodium (Porcine) 5,000 unit 01/09/20 10:00 01/09/20 12:31 Heparin - SQ 5,000 unit BID ARIS Administration Ceftriaxone Sodium 1 gm/ 50 mls @ 100 mls/hr 01/09/20 10:00 01/09/20 12:31 Dextrose IVPB 100 mls/hr DAILY ARIS Administration Protocol Dextrose/Sodium Chloride 1,000 mls @ 75 mls/hr 01/09/20 09:45 01/09/20 12:45 D5-1/2ns - IV 75 mls/hr ASDIR ARIS Administration Insulin Aspart 1 vial 01/09/20 11:00 01/09/20 12:45 Novolog Vial Sliding Scale - SQ Not Given ACHS ARIS Protocol Letrozole 2.5 mg 01/09/20 11:00 Femara - PO DAILY ARIS Losartan Potassium 25 mg 01/09/20 10:00 01/09/20 12:31 Cozaar - PO 25 mg DAILY ARIS Administration Metformin HCl 1,000 mg 01/09/20 10:00 01/09/20 12:31 Glucophage - PO 1,000 mg BIDAC ARIS Administration Laboratory Tests 06/25/19 12/24/19 01/08/20 10:50 10:55 20:38 Potassium 5.2 H Creatinine 1.0 1.1 1.8 H Lactic Acid 01/08/20 01/09/20 20:38 06:30 Potassium Creatinine Lactic Acid 2.4 H* 0.8 Laboratory Tests 01/08/20 20:38 Sodium 137 Potassium 5.2 H BUN 19.1 H Creatinine 1.8 H Impression 1. SHERLY 2. hyperkalemia 3. uti 4. htn 5. dm 6. constipation 7. abd pain Plan - change fluids to 1/2 ns - follow bmp - cont abx abd follow cultures - repeat ua - if renal function does not improve with fluids will order more extensive workup - hold losartan - hold metformin as she is in renal failure and lactic acid was elevated
--- NOTE | 2020-01-09 14:07 | PN ---
Progress Note (short form) - Note Progress Note: Laboratory Tests 01/09/20 01/09/20 12:53 12:53 Sodium 140 Potassium 4.8 BUN 15.5 Creatinine 1.2 Lactic Acid 1.1 renal function improved Problem List - Problems (1) SHERLY (acute kidney injury) Code(s): N17.9 - ACUTE KIDNEY FAILURE, UNSPECIFIED (2) HTN (hypertension) Code(s): I10 - ESSENTIAL (PRIMARY) HYPERTENSION
--- NOTE | 2020-01-09 14:25 | CON.ID ---
Consult - Past Medical History Cardio/Vascular: Yes: HTN, Hyperlipdemia Gastrointestinal: Yes: Other (chronic conspitation, nausea) Renal/: Yes: UTI ...: No Infectious Disease: Yes: Other (Recurrent UTI) Endocrine: Yes: Diabetes Mellitus - Past Surgical History Past Surgical History: Yes: Mastectomy - Alcohol/Substance Use Hx Alcohol Use: No History of Substance Use: reports: None - Smoking History Smoking history: Never smoked Have you smoked in the past 12 months: No Aproximately how many cigarettes per day: 0 - Social History ADL: Family Assistance History of Recent Travel: No Home Medications - Allergies Allergies/Adverse Reactions: Allergies Allergy/AdvReac Type Severity Reaction Status Date / Time No Known Drug Allergies Allergy Verified 01/08/20 18:55 - Home Medications Home Medications: Ambulatory Orders Aspirin 81 mg PO DAILY 05/05/17 Atorvastatin Ca [Lipitor] 40 mg PO HS 05/05/17 Losartan Potassium 25 mg PO DAILY 05/05/17 Insulin Sliding Scale [Novolog Vial Sliding Scale -] 3 units SQ TIDAC 10/09/18 Ibuprofen [Motrin -] 600 mg PO QID #28 tablet 10/14/18 Letrozole 2.5 mg PO DAILY 10/14/18 Metformin HCl [Glucophage] 1,000 mg PO BID 10/14/18 Lubiprostone [Amitiza] 8 mcg PO DAILY 01/09/20 Family Medical History Family History: Denies Physical Exam Vital Signs: Vital Signs Temperature 98.4 F 01/09/20 12:41 Pulse Rate 80 01/09/20 12:41 Respiratory Rate 18 01/09/20 12:41 Blood Pressure 136/57 L 01/09/20 12:41 O2 Sat by Pulse Oximetry (%) 97 01/09/20 12:41 Labs: CBC, BMP 01/09/20 12:53 01/09/20 12:53
[2020-01-09] MEDS: SODIUM CHLORIDE 0.45% 1,000 ML IV SCH ×2 (18:14→22:19)
[2020-01-09] MEDS ORDERED: ATORVASTATIN CA 40 MG TABLET (FP) PO SCH (22:00)
--- NOTE | 2020-01-09 22:18 | HP ---
Admitting History and Physical - Admission History of Present Illness: The patient is an 79 year old female with a significant PMH of hypertension, hyperlipidemia, DM, breast CA s/p mastectomy who presents to the emergency department for evaluation of 5 days of constipation and abdominal pain. The patient notes she was put on antibiotics (amoxicillin) 1 week ago wc was than changed to augmentin 2 days ago for an UTI. Pt does state that she had fever and dysuria wc resolved with the antibiotics. In ER pt found to have elevated LFT's and ARF. - Past Medical History Cardiovascular: Yes: HTN, Hyperlipdemia Gastrointestinal: Yes: Other (chronic conspitation, nausea) Renal/: Yes: UTI ...: No Heme/Onc: Yes: Cancer (Breast cancer) Infectious Disease: Yes: Other (Recurrent UTI) Endocrine: Yes: Diabetes Mellitus - Past Surgical History Past Surgical History: Yes: Mastectomy - Smoking History Smoking history: Never smoked Have you smoked in the past 12 months: No Aproximately how many cigarettes per day: 0 - Alcohol/Substance Use Hx Alcohol Use: No History of Substance Use: reports: None - Social History ADL: Family Assistance History of Recent Travel: No Home Medications - Allergies Allergies/Adverse Reactions: Allergies Allergy/AdvReac Type Severity Reaction Status Date / Time No Known Drug Allergies Allergy Verified 01/08/20 18:55 - Home Medications Home Medications: Ambulatory Orders Aspirin 81 mg PO DAILY 05/05/17 Atorvastatin Ca [Lipitor] 40 mg PO HS 05/05/17 Losartan Potassium 25 mg PO DAILY 05/05/17 Insulin Sliding Scale [Novolog Vial Sliding Scale -] 3 units SQ TIDAC 10/09/18 Letrozole 2.5 mg PO DAILY 10/14/18 Metformin HCl [Glucophage] 1,000 mg PO BID 10/14/18 Lubiprostone [Amitiza] 8 mcg PO DAILY 01/09/20 Cefuroxime Axetil [Ceftin -] 250 mg PO BID #10 tablet 01/10/20 Docusate Sodium [Colace -] 100 mg PO TID #90 capsule 01/10/20 Polyethylene Glycol 3350 [Miralax 119 gm Btl -] 17 gm PO DAILY #1 bottle 01/10/20 Family Medical History Family History: Denies, Unremarkable Review of Systems - Review of Systems Constitutional: reports: Fever, Loss of Appetite, Weakness Eyes: reports: No Symptoms HENT: reports: No Symptoms Neck: reports: No Symptoms Cardiovascular: reports: No Symptoms Respiratory: reports: No Symptoms Gastrointestinal: reports: No Symptoms Genitourinary: reports: No Symptoms Physical Examination Vital Signs: Vital Signs Temperature 98.7 F 01/09/20 21:23 Pulse Rate 80 01/09/20 21:23 Respiratory Rate 01/09/20 21:23 Blood Pressure 141/64 01/09/20 21:23 O2 Sat by Pulse Oximetry (%) 96 01/09/20 21:23 Constitutional: Yes: No Distress Eyes: Yes: WNL HENT: Yes: WNL Neck: Yes: WNL, Supple Cardiovascular: Yes: WNL, Regular Rate and Rhythm Respiratory: Yes: WNL, Regular, CTA Bilaterally Gastrointestinal: Yes: WNL, Normal Bowel Sounds, Soft Musculoskeletal: Yes: WNL Extremities: Yes: WNL Edema: No Neurological: Yes: WNL, Alert, Oriented ...Motor Strength: WNL Labs: CBC, BMP 01/09/20 12:53 01/09/20 12:53 Problem List - Problems (1) Urinary tract infection Assessment/Plan: Cont IV ceftriaxone Follow cultures Cont IVF ID consult Code(s): N39.0 - URINARY TRACT INFECTION, SITE NOT SPECIFIED Qualifiers: Urinary tract infection type: site unspecified Hematuria presence: without hematuria Qualified Code(s): N39.0 - Urinary tract infection, site not specified (2) Transaminitis Assessment/Plan: Cont to monitor LFT's Check abdominal US Code(s): R74.0 - NONSPEC ELEV OF LEVELS OF TRANSAMNS & LACTIC ACID DEHYDRGNSE (3) SHERLY (acute kidney injury) Assessment/Plan: Will give IVF Monitor bun/creatinine Check renal US Renal consult Code(s): N17.9 - ACUTE KIDNEY FAILURE, UNSPECIFIED (4) Diabetes Assessment/Plan: Cont sliding scale w/ coverage Code(s): E11.9 - TYPE 2 DIABETES MELLITUS WITHOUT COMPLICATIONS (5) GERD (gastroesophageal reflux disease) Code(s): K21.9 - GASTRO-ESOPHAGEAL REFLUX DISEASE WITHOUT ESOPHAGITIS Qualifiers: Esophagitis presence: esophagitis presence not specified Qualified Code(s): K21.9 - Gastro-esophageal reflux disease without esophagitis (6) HTN (hypertension) Code(s): I10 - ESSENTIAL (PRIMARY) HYPERTENSION (7) HLD (hyperlipidemia) Code(s): E78.5 - HYPERLIPIDEMIA, UNSPECIFIED (8) History of breast cancer in female Code(s): Z85.3 - PERSONAL HISTORY OF MALIGNANT NEOPLASM OF BREAST (9) Constipation Code(s): K59.00 - CONSTIPATION, UNSPECIFIED
[2020-01-10] MEDS: DOCUSATE SODIUM 100 MG CAPSULE (FP) PO SCH ×3 (00:40→15:07)
[2020-01-10] MEDS: INSULIN SLIDING SCALE (NOVOLOG) 1 VIAL SQ SCH ×2 (06:17→11:59)
[2020-01-10 08:53] LABS: ALBUMIN 2.6 g/dl (3.4-5.0); BILIRUBIN,TOTAL 0.2 mg/dL (0.2-1); BLOOD UREA NITROGEN 14.2 mg/dL (7-18); CREATININE 1.1 mg/dL (0.55-1.3); POTASSIUM 4.6 mmol/L (3.5-5.1); TOT PROT 5.6 g/dl (6.4-8.2)
[2020-01-10] MEDS ORDERED: cefTRIAXone SODIUM 1 GM VIAL ONE (09:21)
[2020-01-10] MEDS ORDERED: DEXTROSE 5%-WATER - 50 ML IVPB ONE (09:22)
[2020-01-10] MEDS: CEFTRIAXONE 1 GM in DEXTROSE 5%-WATER - 50 ML IVPB SCH (09:48)
[2020-01-10] MEDS: HEPARIN NA (PORCINE) 5,000 UNITS/ML 1ML VIAL SQ SCH (09:48)
[2020-01-10] MEDS: LETROZOLE 2.5 MG TABLET (FP) PO SCH (09:48)
[2020-01-10] MEDS: ASPIRIN 81 MG CHEWABLE TABLETS PO SCH (09:48)
[2020-01-10] MEDS ORDERED: POLYETHYLENE GLYCOL 3350 119 GM BTL PO SCH (10:00)
[2020-01-10 14:42] VITALS: BP 102/55; PULSE 71; TEMP 98.7
[2020-01-10] MEDS ORDERED: SODIUM CHLORIDE 0.45% 1,000 ML IV SCH (15:16)
--- NOTE | 2020-01-10 15:16 | PN ---
Progress Note, Physician History of Present Illness: Pt seen and examined at bedside. She is awake and alert. She denies fevers or chills. - Current Medication List Current Medications: Active Medications Aspirin (Asa -) 81 mg PO DAILY [facility] Last Admin: 01/10/20 09:48 Dose: 81 mg Documented by: Atorvastatin Calcium (Lipitor -) 40 mg PO HS [facility] Last Admin: 01/09/20 22:04 Dose: 40 mg Documented by: Docusate Sodium (Colace -) 100 mg PO TID ARIS Last Admin: 01/10/20 15:07 Dose: 100 mg Documented by: Heparin Sodium (Porcine) (Heparin -) 5,000 unit SQ BID ARIS Last Admin: 01/10/20 09:48 Dose: 5,000 unit Documented by: Ceftriaxone Sodium 1 gm/ (Dextrose) 50 mls @ 100 mls/hr IVPB DAILY [facility]; Protocol Last Admin: 01/10/20 09:48 Dose: 100 mls/hr Documented by: Sodium Chloride (1/2 Normal Saline) 1,000 mls @ 75 mls/hr IV ASDIR [facility] Last Admin: 01/09/20 22:19 Dose: 75 mls/hr Documented by: Insulin Aspart (Novolog Vial Sliding Scale -) 1 vial SQ ACHS [facility]; Protocol Last Admin: 01/10/20 11:59 Dose: 2 units Documented by: Letrozole (Femara -) 2.5 mg PO DAILY [facility] Last Admin: 01/10/20 09:48 Dose: 2.5 mg Documented by: Polyethylene Glycol (Miralax (For Daily Use) -) 17 gm PO DAILY [facility] Last Admin: 01/10/20 09:53 Dose: 17 gm Documented by: - Objective Vital Signs: Vital Signs Temperature 98.7 F 01/10/20 14:00 Pulse Rate 71 01/10/20 14:00 Respiratory Rate 20 01/10/20 14:00 Blood Pressure 102/55 L 01/10/20 14:00 O2 Sat by Pulse Oximetry (%) 93 L 01/10/20 14:00 Constitutional: Yes: Calm Eyes: Yes: Conjunctiva Clear HENT: Yes: Atraumatic Neck: Yes: Supple Cardiovascular: Yes: S1, S2 Respiratory: Yes: CTA Bilaterally Gastrointestinal: Yes: Normal Bowel Sounds, Soft Genitourinary: Yes: WNL Musculoskeletal: Yes: WNL Edema: No Neurological: Yes: Oriented Psychiatric: Yes: Oriented Labs: CBC, BMP 01/09/20 12:53 01/10/20 06:53 INR, PTT INR 0.98 (0.83-1.09) 01/08/20 20:38 Problem List - Problems (1) SHERLY (acute kidney injury) Code(s): N17.9 - ACUTE KIDNEY FAILURE, UNSPECIFIED (2) HTN (hypertension) Code(s): I10 - ESSENTIAL (PRIMARY) HYPERTENSION Assessment/Plan Current Medications Generic Name Dose Route Start Last Admin Trade Name Adriano PRN Reason Stop Dose Admin Aspirin 81 mg 01/09/20 10:00 01/10/20 09:48 Asa - PO 81 mg DAILY ARIS Administration Atorvastatin Calcium 40 mg 01/09/20 22:00 01/09/20 22:04 Lipitor - PO 40 mg HS ARIS Administration Docusate Sodium 100 mg 01/09/20 22:30 01/10/20 15:07 Colace - PO 100 mg TID ARIS Administration Heparin Sodium (Porcine) 5,000 unit 01/09/20 10:00 01/10/20 09:48 Heparin - SQ 5,000 unit BID ARIS Administration Ceftriaxone Sodium 1 gm/ 50 mls @ 100 mls/hr 01/09/20 10:00 01/10/20 09:48 Dextrose IVPB 100 mls/hr DAILY ARIS Administration Protocol Sodium Chloride 1,000 mls @ 75 mls/hr 01/09/20 14:15 01/09/20 22:19 1/2 Normal Saline IV 75 mls/hr ASDIR ARIS Administration Insulin Aspart 1 vial 01/09/20 11:00 01/10/20 11:59 Novolog Vial Sliding Scale - SQ 2 units ACHS ARIS Administration Protocol Letrozole 2.5 mg 01/09/20 11:00 01/10/20 09:48 Femara - PO 2.5 mg DAILY ARIS Administration Polyethylene Glycol 17 gm 01/10/20 10:00 01/10/20 09:53 Miralax (For Daily Use) - PO 17 gm DAILY ARIS Administration Impression 1. SHERLY 2. hyperkalemia 3. uti 4. htn 5. dm 6. constipation 7. abd pain Plan - can decrease rate of fluids - repeat labs in am - repeat ua - will keep losartan on hold as her bp is low
--- NOTE | 2020-01-10 15:59 | PN ---
Progress Note, Physician History of Present Illness: Pt feeling better. Remains afebrile. For d/c home. - Current Medication List Current Medications: Active Medications Aspirin (Asa -) 81 mg PO DAILY [facility] Last Admin: 01/10/20 09:48 Dose: 81 mg Documented by: Atorvastatin Calcium (Lipitor -) 40 mg PO HS [facility] Last Admin: 01/09/20 22:04 Dose: 40 mg Documented by: Docusate Sodium (Colace -) 100 mg PO TID [facility] Last Admin: 01/10/20 15:07 Dose: 100 mg Documented by: Heparin Sodium (Porcine) (Heparin -) 5,000 unit SQ BID [facility] Last Admin: 01/10/20 09:48 Dose: 5,000 unit Documented by: Ceftriaxone Sodium 1 gm/ (Dextrose) 50 mls @ 100 mls/hr IVPB DAILY [facility]; Protocol Last Admin: 01/10/20 09:48 Dose: 100 mls/hr Documented by: Sodium Chloride (1/2 Normal Saline) 1,000 mls @ 60 mls/hr IV ASDIR [facility] Insulin Aspart (Novolog Vial Sliding Scale -) 1 vial SQ ACHS [facility]; Protocol Last Admin: 01/10/20 11:59 Dose: 2 units Documented by: Letrozole (Femara -) 2.5 mg PO DAILY [facility] Last Admin: 01/10/20 09:48 Dose: 2.5 mg Documented by: Polyethylene Glycol (Miralax (For Daily Use) -) 17 gm PO DAILY [facility] Last Admin: 01/10/20 09:53 Dose: 17 gm Documented by: - Objective Vital Signs: Vital Signs Temperature 98.7 F 01/10/20 14:00 Pulse Rate 71 01/10/20 14:00 Respiratory Rate 20 01/10/20 14:00 Blood Pressure 102/55 L 01/10/20 14:00 O2 Sat by Pulse Oximetry (%) 93 L 01/10/20 14:00 Constitutional: Yes: No Distress Cardiovascular: Yes: Regular Rate and Rhythm Respiratory: Yes: Regular Gastrointestinal: Yes: Normal Bowel Sounds, Soft Genitourinary: Yes: WNL Integumentary: Yes: WNL Labs: CBC, BMP 01/09/20 12:53 01/10/20 06:53 INR, PTT INR 0.98 (0.83-1.09) 01/08/20 20:38 Microbiology 01/09/20 03:00 Urine - Urine Clean Catch Urine Culture - Final NO GROWTH OBTAINED - ....Imaging Cat Scan: Report Reviewed Problem List - Problems (1) Abdominal pain Code(s): R10.9 - UNSPECIFIED ABDOMINAL PAIN Qualifiers: Abdominal location: unspecified location Qualified Code(s): R10.9 - Unspecified abdominal pain (2) Leukocytosis (leucocytosis) Code(s): D72.829 - ELEVATED WHITE BLOOD CELL COUNT, UNSPECIFIED Qualifiers: Leukocytosis type: bandemia Qualified Code(s): D72.825 - Bandemia (3) Transaminitis Code(s): R74.0 - NONSPEC ELEV OF LEVELS OF TRANSAMNS & LACTIC ACID DEHYDRGNSE (4) Diabetes Code(s): E11.9 - TYPE 2 DIABETES MELLITUS WITHOUT COMPLICATIONS (5) HLD (hyperlipidemia) Code(s): E78.5 - HYPERLIPIDEMIA, UNSPECIFIED (6) HTN (hypertension) Code(s): I10 - ESSENTIAL (PRIMARY) HYPERTENSION (7) Urinary tract infection Code(s): N39.0 - URINARY TRACT INFECTION, SITE NOT SPECIFIED Qualifiers: Urinary tract infection type: site unspecified Hematuria presence: without hematuria Qualified Code(s): N39.0 - Urinary tract infection, site not specified Assessment/Plan Leukocytosis Possible UTI Transaminitis DM -- Urine cx negative (was on antibiotics prior to admission), wbc/LFTs trended down -- for d/c home today on PO antibiotics -- f/u with PMD
--- NOTE | 2020-01-14 23:39 | DS ---
Physical Examination Vital Signs: Vital Signs Temperature 98.7 F 01/10/20 14:00 Pulse Rate 71 01/10/20 14:00 Respiratory Rate 20 01/10/20 14:00 Blood Pressure 102/55 L 01/10/20 14:00 O2 Sat by Pulse Oximetry (%) 93 L 01/10/20 14:00 Labs: CBC, BMP 01/09/20 12:53 01/10/20 06:53 Discharge Summary Problems reviewed: Yes Reason For Visit: ACUTE KIDNEY INJURY Acute renal failure Elevated LFT's HTN HLD Breast CA Constipation Diabetes Hospital Course: The patient is an 79 year old female with a significant PMH of hypertension, hyperlipidemia, DM, breast CA s/p mastectomy who presents to the emergency department for evaluation of 5 days of constipation, abdominal pain and UTI. In ER pt found to have elevated LFT's and ARF. CT scan abd/pelvis showed contracted gallbladder and perinephric stranding. Pt was treated w/ IV ceftriaxone and urine cultures were negative. Pt also was given IVF and had BM and creatinine/LFT's returned to normal w/ IV hydration. Renal US wsa unremarkable. Pt was also followed by renal. Condition: Good - Instructions Diet, Activity, Other Instructions: 2 gram sodium and diabetic diet See Dr José Denis in 1 week Referrals: José Denis MD [Primary Care Provider] - Disposition: HOME - Home Medications Comprehensive Discharge Medication List: Ambulatory Orders Aspirin 81 mg PO DAILY 05/05/17 Atorvastatin Ca [Lipitor] 40 mg PO HS 05/05/17 Losartan Potassium 25 mg PO DAILY 05/05/17 Insulin Sliding Scale [Novolog Vial Sliding Scale -] 3 units SQ TIDAC 10/09/18 Letrozole 2.5 mg PO DAILY 10/14/18 Metformin HCl [Glucophage] 1,000 mg PO BID 10/14/18 Lubiprostone [Amitiza] 8 mcg PO DAILY 01/09/20 Cefuroxime Axetil [Ceftin -] 250 mg PO BID #10 tablet 01/10/20 Docusate Sodium [Colace -] 100 mg PO TID #90 capsule 01/10/20 Polyethylene Glycol 3350 [Miralax 119 gm Btl -] 17 gm PO DAILY #1 bottle 01/10/20
== END 2020-01-10 17:24 | disposition home or self-care (01) | DRG 683 ==
LOC: JER 18:51 → JERBED 23:56 → J8W 01-09 20:17
PROVIDERS: ADMIT Internal Medicine; ATTEND Internal Medicine
DX: N17.9 Acute kidney failure, unspecified (principal); N39.0 Urinary tract infection, site not specified; K59.00 Constipation, unspecified; I10 Essential (primary) hypertension; E78.5 Hyperlipidemia, unspecified; E11.9 Type 2 diabetes mellitus without complications; Z85.3 Personal history of malignant neoplasm of breast; E87.5 Hyperkalemia; D72.829 Elevated white blood cell count, unspecified; R74.0 Nonspecific elevation of levels of transaminase and lactic acid dehydrogenase [LDH]
CPT/HCPCS: 36415; 71046-TC-FY; 74176-TC; 76775-TC; 80053; 81003; 82962; 83605; 85025; 85610; 85730; 87086; 93005; 93010; 99285-25; J1644; U0003

== ENCOUNTER 2020-05-13 15:34 | Emergency (ER) | payer OTHER ==
[2020-05-13 16:16] VITALS: BMI 23.3
[2020-05-13] MEDS ORDERED: BAMLANIVIMAB 700 MG in SODIUM CHLORIDE 180 ML IVPB ONE (16:35)
[2020-05-13 18:18] LABS: HEMATOCRIT 38.2 % (32.4-45.2); HEMOGLOBIN 12.4 GM/dL (10.7-15.3); MCH 27.1 pg (25.7-33.7); MCHC 32.4 g/dl (32.0-36.0); MEAN CELL VOLUME 83.7 fl (80-96); MEAN PLT VOLUME 9.2 fl (7.5-11.1); PLATELET COUNT 232 K/MM3 (134-434); RBC 4.57 M/mm3 (3.60-5.2); RDW 19.9 % (11.6-15.6)
[2020-05-13 18:38] LABS: POTASSIUM 5.2 mmol/L (3.5-5.1)
[2020-05-13 18:40] LABS: BLOOD UREA NITROGEN 16.8 mg/dL (7-18); CALCIUM 9.4 mg/dL (8.5-10.1)
[2020-05-13 18:44] LABS: CREATININE 1.1 mg/dL (0.55-1.3)
[2020-05-13 19:02] VITALS: TEMP 99.1
[2020-05-13 21:39] VITALS: BP 134/77; PULSE 102
== END 2020-05-13 21:40 | disposition home or self-care (01) ==
LOC: JER 15:34
DX: U07.1 COVID-19 (principal)
CPT/HCPCS: 36415; 80048; 85027; 96374; 99284-25; M0239; Q0239